=== PATIENT | male | born 1940 | race Caucasian/White ===

== ENCOUNTER → 2024-02-17 14:17 | Outpatient (REF) | payer MEDICARE, SELFPAY | LOC: RAD 14:17 | PROVIDERS: ATTENDING PHYSICIAN Family Medicine | DX: R10.30 Lower abdominal pain, unspecified (principal); I48.92 Unspecified atrial flutter; R06.09 Other forms of dyspnea | CPT/HCPCS: 71046; 74177; Q9967 ==

== ENCOUNTER → 2024-02-18 12:31 | Outpatient (REF) | payer MEDICARE, SELFPAY ==
[2024-02-18 12:50] LABS: % Basophils 0.9 % (0-2); % Eosinophils 1.8 % (0-6); % Immature Granulocytes 0.4 % (0-0.5); % Lymphocytes 12.8 % (20.5-51.1); % Monocytes 6.9 % (1.7-9.3); % Neutrophils 77.2 % (42.2-75.2); Absolute Basophils 0.1 10^3/uL (0-0.2); Absolute Eosinophils 0.1 10^3/uL (0-0.7); Absolute Monocytes 0.5 10^3/uL (0.1-0.6); Absolute Neutrophils 5.9 10^3/uL (1.4-6.5); Hematocrit 41.2 % (39.0-52.0); Hemoglobin 14.2 g/dL (13.0-18.0); Mean Corp Hgb Conc. 34.5 g/dL (33.0-37.0); Mean Corpuscular Hgb 31.1 pg (27.0-31.0); Mean Corpuscular Volume 90.2 fL (80.0-94.0); Mean Platelet Volume 11.4 fL (7.4-10.4); Nucleated Red Blood Cells % 0 % (-); Platelet Count 176 10^3/uL (130-400); Red Blood Cell Count 4.57 10^6/uL (4.70-6.10); Red Cell Dist. Width 11.8 % (11.5-14.5); White Blood Cell Count 7.7 10^3/uL (4.8-10.8)
[2024-02-18 13:23] LABS: Blood Urea Nitrogen 21 mg/dl (9-20); Calcium 9.4 mg/dl (8.4-10.2); Carbon Dioxide 29 mmol/L (22-30); Chloride 98 mmol/L (98-107); Glucose 94 mg/dl (70-99); Potassium 4.5 mmol/L (3.5-5.1); Sodium 134 mmol/L (135-145); eGFR > 60.00
[2024-02-18 14:34] LABS: Urine Albumin Negative (Neg - Trace); Urine Bilirubin Negative (Negative); Urine Character Clear (Clear); Urine Color Yellow; Urine Glucose Negative (Negative); Urine Ketone Negative (Negative); Urine Leukocyte Negative (Negative); Urine Nitrite Negative (Negative); Urine Occult Blood Negative (Negative); Urine Urobilinogen Negative (Neg - 1+)
== END ==
LOC: REG 12:31
PROVIDERS: ATTENDING PHYSICIAN Family Medicine
DX: R53.83 Other fatigue (principal); Z79.899 Other long term (current) drug therapy
CPT/HCPCS: 36415; 80048; 81003; 85025

== ENCOUNTER → 2024-03-06 09:00 | Outpatient (REF) | payer MEDICARE, SELFPAY | LOC: PAVMRI 09:00 | PROVIDERS: ATTENDING PHYSICIAN Psychiatry & Neurology Neurology; FAMILY PHYSICIAN Family Medicine | DX: F09 Unspecified mental disorder due to known physiological condition (principal) | CPT/HCPCS: 70551 ==

== ENCOUNTER → 2024-05-10 07:34 | Outpatient (REF) | payer MEDICARE, SELFPAY | LOC: EMG 07:34 | PROVIDERS: ATTENDING PHYSICIAN Psychiatry & Neurology Neurology; FAMILY PHYSICIAN Family Medicine | DX: R20.0 Anesthesia of skin (principal) | CPT/HCPCS: 95886; 95912 ==

== ENCOUNTER → 2024-06-02 10:59 | Outpatient (REF) | payer MEDICARE, SELFPAY | LOC: HWRAD 10:59 | PROVIDERS: ATTENDING PHYSICIAN Internal Medicine Rheumatology; FAMILY PHYSICIAN Family Medicine | DX: M81.0 Age-related osteoporosis without current pathological fracture (principal) | CPT/HCPCS: 77080 ==

== ENCOUNTER → 2024-06-22 13:56 | Outpatient (REF) | payer MEDICARE, SELFPAY | LOC: HWRCS 13:56 | PROVIDERS: ATTENDING PHYSICIAN Internal Medicine Cardiovascular Disease; FAMILY PHYSICIAN Family Medicine | DX: R06.09 Other forms of dyspnea (principal) | CPT/HCPCS: 93306 ==

== ENCOUNTER 2024-09-27 14:18 | Emergency (ER) | payer MEDICARE, SELFPAY ==
[2024-09-27 15:57] VITALS: BP 128/63
[2024-09-27 16:07] LABS: % Eosinophils 3.8 % (0-6); % Immature Granulocytes 0.3 % (0-0.5); % Lymphocytes 19.3 % (20.5-51.1); % Monocytes 8.4 % (1.7-9.3); % Neutrophils 67.2 % (42.2-75.2); Absolute Basophils 0.1 10^3/uL (0-0.2); Absolute Eosinophils 0.2 10^3/uL (0-0.7); Absolute Lymphocytes 1.2 10^3/uL (1.2-3.4); Absolute Monocytes 0.5 10^3/uL (0.1-0.6); Absolute Neutrophils 4.2 10^3/uL (1.4-6.5); Hematocrit 39.6 % (39.0-52.0); Hemoglobin 13.5 g/dL (13.0-18.0); Mean Corp Hgb Conc. 34.1 g/dL (33.0-37.0); Mean Corpuscular Hgb 30.4 pg (27.0-31.0); Mean Corpuscular Volume 89.2 fL (80.0-94.0); Mean Platelet Volume 11.6 fL (7.4-10.4); Nucleated Red Blood Cells % 0 % (-); Platelet Count 156 10^3/uL (130-400); Red Blood Cell Count 4.44 10^6/uL (4.70-6.10); Red Cell Dist. Width 12.1 % (11.5-14.5); White Blood Cell Count 6.3 10^3/uL (4.8-10.8)
[2024-09-27 16:23] LABS: ALT (SGPT) 20 U/L (0-50); AST (SGOT) 23 U/L (17-59); Albumin 4.6 g/dl (3.5-5.0); Alkaline Phosphatase 95 U/L (38-126); Blood Urea Nitrogen 32 mg/dl (9-20); Calcium 9.6 mg/dl (8.4-10.2); Carbon Dioxide 28 mmol/L (22-30); Chloride 99 mmol/L (98-107); Glucose 99 mg/dl (70-99); Lipase 109 U/L (23-300); Potassium 5.1 mmol/L (3.5-5.1); Sodium 137 mmol/L (135-145); Total Bilirubin 0.4 mg/dl (0.2-1.3); Total Protein 6.6 g/dl (6.3-8.2); eGFR > 60.00
[2024-09-27 16:30] LABS: Urine Albumin Negative (Neg - Trace); Urine Bilirubin Negative (Negative); Urine Character Clear (Clear); Urine Color Yellow; Urine Glucose Negative (Negative); Urine Ketone Negative (Negative); Urine Leukocyte Negative (Negative); Urine Nitrite Negative (Negative); Urine Occult Blood Negative (Negative); Urine Specific Gravity 1.015 (<1.030); Urine Urobilinogen Negative (Neg - 1+)
[2024-09-27] MEDS: NSS 1000 IV (18:06)
[2024-09-27 19:28] VITALS: BP 120/60
--- NOTE | 2024-09-27 23:52 | ED.GENMED ---
History of Present Illness
General
Chief Complaint: Flank Pain
Source: patient
Exam Limitations: none
Time Seen by Provider: 09/27/24 15:18
Nursing documentation reviewed up to this point in time: agreed with
History of Present Illness
History of Present Illness:
Patient to ED with complaint of right flank upper abd and right chest pain. States pain has been present for the past fwe weeks but contiinues to worsen. Denies fever/chills. +nausea, no vomiting or diarrhea. Brought self to ED for eval.
Past History
Past History
ED Past Medical History: Arrthythmia, CVA, GERD, HTN and Other (PSVT, bipolar, depression, pulmonary hypertension, sleep apnea, anxiety)
ED Past Surgical History: Appendectomy, Cholecystectomy and Orthopedic
Social History
Tobacco: Non-smoker
Alcohol: None
Drug: None
Personal:
Living: with family
Employment: Employed
Family History
Family History: Other (Noncontributory)
Review of Systems
Review of Systems
Allergies reviewed?: Yes
All Other Systems: ROS reviewed and negative except as documented in HPI and ROS
Constitutional: Reports no symptoms
EENT: Reports no symptoms
Respiratory: Reports no symptoms
Cardiac: Reports no symptoms
ABD/GI: Reports abdominal pain
: Reports flank pain
Musculoskeletal: Reports no symptoms
Skin: Reports no symptoms
Neurological: Reports no symptoms
Psychiatric: Reports no symptoms
Phy Exam
General Physical Exam
General Presentation: well appearing and no apparent distress
General age: appears stated age
General Skin: warm and dry
General Habitus: normal
General Mental: alert
Cardiovascular Exam
Cardiovascular Exam: regular rate/rhythm
Pulmonary Exam
Pulmonary Exam: lungs clear and no respiratory distress
Gastrointestinal Exam
Gastrointestinal Exam: non tender, soft and no organomegaly
Musculoskeletal Exam
Musculoskeletal Exam: full ROM and neuro vasc intact
Skin Exam
Skin Exam: normal color, warm/dry and no rash
Psychiatric Exam
Psychiatric Exam: normal mood/affect
Course
Orders/Labs/Results
Orders:
Orders
09/27/24 15:36
Chest/Abd/Pelvis w Contrast CT [CT Chest/abd/pel W Iv Cont] Urgent
Comment:
Reason For Exam: upper abd, right chest pain, SOB
09/27/24 15:51
Complete Blood Count/With Diff Urgent
Comprehensive Metabolic Panel Urgent
Lipase Urgent
Urinalysis Reflex To Culture Urgent
Date Specimen was Collected: 09/27/24
Time Specimen was Collected: 15:38
09/27/24 17:59
0.9% Sodium Chloride 1000 ml [Nss] 1,000 ml IV BOLUS
Abnormal Lab Results
09/27/24
15:51
RBC 4.44 L 10^6/uL
(4.70-6.10)
MPV 11.6 H fL
(7.4-10.4)
Lymphocytes % 19.3 L %
(20.5-51.1)
BUN 32 H mg/dl
(9-20)
09/27/24 15:51
09/27/24 15:51
Vital Signs
Initial and Last Documented VS:
Initial Vital Signs
Temp Pulse Resp Pulse Ox
97.4 F 77 20 98
09/27/24 14:22 09/27/24 14:22 09/27/24 14:22 09/27/24 14:22
Last Documented Vital Signs
Temp Pulse Resp BP Pulse Ox
97.4 F 65 18 120/60 98
09/27/24 14:22 09/27/24 19:28 09/27/24 19:28 09/27/24 19:28 09/27/24 19:28
*Radiology
Radiology exam reviewed: radiology read reviewed
*Pulse Oximetry
Patient hypoxic: no
*Critical Care Note
Total Time (30-74mins, 75-104mins- exclusive of procedures): Not Applicable
ED Attending Note
-
Portions of this chart may have been created with voice recognition software.� Occasional wrong word or��sound alike� substitutions may have occurred due to the inherent limitations of voice recognition software.
Discharge Plan
Departure
Patient Disposition: Home (Routine Discharge)
Date of Disposition: 09/27/24
Time of Disposition: 18:32
Patient with high blood pressure during this ER visit?: No
Condition: Good
Covid-19: Not Applicable
Discharge Problem:
Flank pain
Instructions: Flank Pain (DC)
Prescriptions:
No Action
diltiazem HCl 240 mg Capsule,Ext.Rel 24h Degradable
240 mg PO DAILY
clonazepam [Klonopin] 0.5 mg Tablet
0.5 mg PO .5X'SPERDAY
omeprazole [Prilosec] 40 mg Capsule,Delayed Release(Dr/Ec)
40 mg PO DAILY
tamsulosin 0.4 mg Capsule
0.8 mg PO DAILY
mirtazapine 30 mg Tablet
30 mg PO DAILY
losartan 100 mg Tablet
100 mg PO DAILY
lamotrigine [Lamictal] 100 mg Tablet
100 mg PO BID
Eliquis 5 mg Tablet
5 mg PO BID
Trintellix 10 mg Tablet
10 mg PO DAILY
Referrals:
Mukul Concepcion Jr., DO [Family Provider] - Follow up in 2-3 days
Interventions
Interventions:
*Risk Screen - Suicide Last Done: 09/27/24 14:22
*General Assessment Last Done: 09/27/24 14:22
*Neglect/Abuse Screening Last Done: 09/27/24 14:22
ED- Fall Risk Assessment Last Done: 09/27/24 15:22
*Nursing Disposition Last Done: 09/27/24 19:28
PT-Kgilmj-Upfxtmrmeb Assessment Last Done: 09/27/24 15:22
ED-Male Genitourinary Assessment Last Done: 09/27/24 15:22
Discharge Date and Time
Discharge Date/Time: 09/27/24 19:29
Print Language: SUDANESE
== END 2024-09-27 19:29 | disposition home or self-care (01) ==
LOC: EMR 14:18
PROVIDERS: Nurse Practitioner; EMERGENCY PHYSICIAN Emergency Medicine; FAMILY PHYSICIAN Family Medicine
DX: R10.11 Right upper quadrant pain (principal); R07.89 Other chest pain; R11.0 Nausea; R53.1 Weakness; I10 Essential (primary) hypertension; F41.9 Anxiety disorder, unspecified; K21.9 Gastro-esophageal reflux disease without esophagitis; G47.30 Sleep apnea, unspecified; I47.10 Supraventricular tachycardia, unspecified; F31.9 Bipolar disorder, unspecified; F32.A Depression, unspecified; I27.20 Pulmonary hypertension, unspecified; G54.0 Brachial plexus disorders; G62.9 Polyneuropathy, unspecified; I48.92 Unspecified atrial flutter; N40.0 Benign prostatic hyperplasia without lower urinary tract symptoms; Z79.01 Long term (current) use of anticoagulants; Z85.828 Personal history of other malignant neoplasm of skin; Z86.73 Personal history of transient ischemic attack (TIA), and cerebral infarction without residual deficits; Z90.49 Acquired absence of other specified parts of digestive tract; Z88.5 Allergy status to narcotic agent
CPT/HCPCS: 99284; 96360; 71260; 74177; 80053; 81003; 83690; 85025; Q9967

== ENCOUNTER → 2024-10-20 11:03 | Outpatient (REF) | payer MEDICARE, SELFPAY | LOC: HWRAD 11:03 | PROVIDERS: ATTENDING PHYSICIAN Nurse Practitioner Adult Health; FAMILY PHYSICIAN Family Medicine | DX: E04.1 Nontoxic single thyroid nodule (principal) | CPT/HCPCS: 76536 ==

== ENCOUNTER → 2024-10-27 14:40 | Outpatient (REF) | payer MEDICARE, SELFPAY | LOC: RCS 14:40 | PROVIDERS: ATTENDING PHYSICIAN Internal Medicine Cardiovascular Disease; FAMILY PHYSICIAN Family Medicine | DX: R06.09 Other forms of dyspnea (principal); I45.10 Unspecified right bundle-branch block; I51.7 Cardiomegaly | CPT/HCPCS: 93308 ==

== ENCOUNTER 2024-11-06 10:26 | Emergency (ER) | payer MEDICARE, SELFPAY ==
[2024-11-06 10:29] VITALS: BP 92/54
[2024-11-06 10:53] LABS: % Basophils 0.9 % (0-2); % Eosinophils 3.9 % (0-6); % Immature Granulocytes 0.3 % (0-0.5); % Lymphocytes 15.8 % (20.5-51.1); % Monocytes 7.7 % (1.7-9.3); % Neutrophils 71.4 % (42.2-75.2); Absolute Basophils 0.1 10^3/uL (0-0.2); Absolute Eosinophils 0.3 10^3/uL (0-0.7); Absolute Lymphocytes 1.1 10^3/uL (1.2-3.4); Absolute Monocytes 0.5 10^3/uL (0.1-0.6); Absolute Neutrophils 4.9 10^3/uL (1.4-6.5); Hematocrit 42.2 % (39.0-52.0); Hemoglobin 13.6 g/dL (13.0-18.0); Mean Corp Hgb Conc. 32.2 g/dL (33.0-37.0); Mean Corpuscular Hgb 30.2 pg (27.0-31.0); Mean Corpuscular Volume 93.8 fL (80.0-94.0); Mean Platelet Volume 11.7 fL (7.4-10.4); Nucleated Red Blood Cells % 0 % (-); Platelet Count 173 10^3/uL (130-400); Red Cell Dist. Width 11.9 % (11.5-14.5); White Blood Cell Count 6.9 10^3/uL (4.8-10.8)
[2024-11-06 11:07] LABS: ALT (SGPT) 21 U/L (0-50); AST (SGOT) 21 U/L (17-59); Albumin 4.3 g/dl (3.5-5.0); Alkaline Phosphatase 85 U/L (38-126); Blood Urea Nitrogen 35 mg/dl (9-20); Calcium 9.5 mg/dl (8.4-10.2); Carbon Dioxide 27 mmol/L (22-30); Chloride 106 mmol/L (98-107); Glucose 100 mg/dl (70-99); Magnesium 2.2 mg/dl (1.6-2.3); Potassium 4.7 mmol/L (3.5-5.1); Sodium 141 mmol/L (135-145); Total Bilirubin 0.5 mg/dl (0.2-1.3); Total Protein 6.4 g/dl (6.3-8.2); eGFR > 60.00
--- NOTE | 2024-11-06 11:40 | ED.GENMED ---
History of Present Illness
General
Chief Complaint: DVT/Possible Blood Clot
Source: patient
Exam Limitations: none
Time Seen by Provider: 11/06/24 11:14
Nursing documentation reviewed up to this point in time: agreed with
History of Present Illness
History of Present Illness:
Patient is an 84-year-old male who does like with past medical history of atrial flutter , Cardioversion, bipolar disorder depression,, pulmonary hypertension right bundle branch block fatigue anxiety presents to the ER for evaluation. Patient
reports he has been short of breath for weeks and fatigue. Today he was walking slightly uphill, started breath and felt his heart rate go up to 130. He denies any associated chest pain. He however wants to be sure this was not a cardiac
equivalent. In addition patient has noted that his right lower extremity has some 'pitting edema.' He is on Eliquis.
Past History
Past History
ED Past Medical History: Arrthythmia, CVA, GERD, HTN and Other (PSVT, bipolar, depression, pulmonary hypertension, sleep apnea, anxiety)
ED Past Surgical History: Appendectomy, Cholecystectomy and Orthopedic
Social History
Tobacco: Non-smoker
Alcohol: None
Drug: None
Personal:
Living: with family
Employment: Employed
Family History
Family History: Other (Noncontributory)
Review of Systems
Review of Systems
Allergies reviewed?: Yes
All Other Systems: ROS reviewed and negative except as documented in HPI and ROS
Constitutional: Reports fatigue; Denies fever
Respiratory: Reports trouble breathing
Cardiac: Reports other (felt his HR go up today walking ); Denies chest pain
ABD/GI: Reports no symptoms
: Reports no symptoms
Musculoskeletal: Reports other ( mild swelling to right lower extremity)
Skin: Reports no symptoms
Neurological: Reports no symptoms
Hematologic/Lymphatic: Reports no symptoms
Psychiatric: Reports no symptoms
Phy Exam
General Physical Exam
General Presentation: no apparent distress
General age: appears stated age
General Skin: warm and dry
General Habitus: normal
General Mental: alert
General Hydration: appears well hydrated
Cardiovascular Exam
Cardiovascular Exam: regular rate/rhythm, no murmur and normal peripheral pulses
Pulmonary Exam
Pulmonary Exam: lungs clear and no respiratory distress
Neurological Exam
Neurological Exam: alert and oriented x3
Musculoskeletal Exam
Musculoskeletal Exam: other (Mild swelling to right lower extremity strong bilateral pulses 2 her mom sounds like he is like for you to evaluate your short leg yes he is very)
Skin Exam
Skin Exam: normal color and warm/dry
Psychiatric Exam
Psychiatric Exam: normal mood/affect
Course
Orders/Labs/Results
Orders:
Orders
11/06/24 10:34
Electrocardiogram (*1) Urgent
Reason for Study: Shortness of Breath
EKG- Treatment ONCE
US Periph Venous LOWER Ext RT Urgent
Comment:
Reason For Exam: swelling
11/06/24 10:46
CMP [Comprehensive Metabolic Panel] Urgent
Complete Blood Count/With Diff Urgent
Magnesium Urgent
11/06/24 12:18
Chest [CR Chest - 2 Views ] Urgent
Comment:
Reason For Exam: sob
11/06/24 12:33
Pro-BNP [NT-proBNP] Urgent
Troponin I Urgent
Abnormal Lab Results
11/06/24
10:46
RBC 4.50 L 10^6/uL
(4.70-6.10)
MCHC 32.2 L g/dL
(33.0-37.0)
MPV 11.7 H fL
(7.4-10.4)
Absolute Lymphs (auto) 1.1 L 10^3/uL
(1.2-3.4)
Lymphocytes % 15.8 L %
(20.5-51.1)
BUN 35 H mg/dl
(9-20)
Glucose 100 H mg/dl
(70-99)
11/06/24 10:46
11/06/24 10:46
Vital Signs
Initial and Last Documented VS:
Initial Vital Signs
Temp Pulse Resp BP Pulse Ox
97.7 F 77 18 92/54 97
11/06/24 10:29 11/06/24 10:29 11/06/24 10:29 11/06/24 10:29 11/06/24 10:29
Last Documented Vital Signs
Temp Pulse Resp BP Pulse Ox
97.7 F 68 16 121/48 97
11/06/24 10:29 11/06/24 14:30 11/06/24 14:30 11/06/24 14:30 11/06/24 14:30
Nurse Healthcare Manager consulted with Physician
Nurse Healthcare Manager consulted with physician?: Yes
Name of Physician Consulted: DR Wise
MDM/Problems Addressed
MDM/Problems Addressed:
Patient is an 84-year-old male with past medical history of mild pulmonary hypertension, a flutter, hypertension, right bundle branch block, on Eliquis presents for shortness of breath. He is a pt of DR Chou and does have chronic SOB.
[place] patient admits to be very anxious and wanted to make sure this was not a cardiac equivalent. He denied any associated chest pain. He presents awake alert no acute distress lungs are clear not hypoxic very minimal right lower extremity
swelling. He also wanted to be sure he did not have a DVT. He denies any fever or chills. He presents awake alert no acute distress afebrile nontachycardic heart rate in the 60s 70s normal white count stable hemoglobin. Patient has an elevated
BUN which is not new., Creatinine normal normal troponin cardiac BNP is 244. Chest x-ray done and negative negative for ultrasound.
Patient ambulated throughout the room [id number] to the bathroom got himself dressed on his own without any difficulty. He has not tachypneic with exertion.
Case reviewed ED physician will DC with outpatient cardiology follow-up
*Pulse Oximetry
Patient hypoxic: no
*EKG
Interpretation: abnormal
Comparison EKG: no changes
Heart Rate: 71
Rate: normal
Rhythm: sinus
QRS Pattern: right bundle branch block
*Critical Care Note
Total Time (30-74mins, 75-104mins- exclusive of procedures): Not Applicable
Data Reviewed
Review of Other/Old Records Reveals: Other (Echo from May 2024 reviewed mild pulmonary hypertension mild right ventricular enlargement no regional wall abnormality)
ED Attending Note
-
Portions of this chart may have been created with voice recognition software.� Occasional wrong word or��sound alike� substitutions may have occurred due to the inherent limitations of voice recognition software.
Discharge Plan
Departure
Patient Disposition: Home (Routine Discharge)
Date of Disposition: 11/06/24
Time of Disposition: 15:06
Patient with high blood pressure during this ER visit?: No
Condition: Fair
Covid-19: Not Applicable
Discharge Problem:
WILSON (dyspnea on exertion)
Instructions: Shortness of Breath, Adult ED
Prescriptions:
No Action
diltiazem HCl 240 mg Capsule,Ext.Rel 24h Degradable
240 mg PO DAILY
clonazepam [Klonopin] 0.5 mg Tablet
0.5 mg PO .5X'SPERDAY
omeprazole [Prilosec] 40 mg Capsule,Delayed Release(Dr/Ec)
40 mg PO DAILY
tamsulosin 0.4 mg Capsule
0.8 mg PO DAILY
mirtazapine 30 mg Tablet
30 mg PO DAILY
losartan 100 mg Tablet
100 mg PO DAILY
lamotrigine [Lamictal] 100 mg Tablet
100 mg PO BID
Eliquis 5 mg Tablet
5 mg PO BID
Trintellix 10 mg Tablet
10 mg PO DAILY
Referrals:
Mukul Concepcion Jr., DO [Family Provider] -
Artemio Chou MD [Active] -
Activity Restrictions/Additional Instructions:
Follow-up with your recovery collector. Please call tomorrow to make an appointment as soon as possible for reevaluation.
Return if any worsening of symptoms
Interventions
Interventions:
*Risk Screen - Suicide Last Done: 11/06/24 10:29
*General Assessment Last Done: 11/06/24 10:29
*Neglect/Abuse Screening Last Done: 11/06/24 10:29
*ED COVID-19 Vaccine History Last Done: 11/06/24 10:29
Discharge Date and Time
Print Language: PORTUGUESE
[2024-11-06 13:02] LABS: NT-proBNP 244 pg/ml; Troponin I 0.012 ng/ml
[2024-11-06 13:39] VITALS: BP 123/54
[2024-11-06 14:30] VITALS: BP 121/48
== END 2024-11-06 15:17 | disposition home or self-care (01) ==
LOC: EMR 10:26
PROVIDERS: Emergency Medicine; Nurse Practitioner; EMERGENCY PHYSICIAN Emergency Medicine; FAMILY PHYSICIAN Family Medicine
DX: R06.09 Other forms of dyspnea (principal); I10 Essential (primary) hypertension; I27.20 Pulmonary hypertension, unspecified; R60.0 Localized edema; G47.30 Sleep apnea, unspecified; I48.92 Unspecified atrial flutter; Z79.01 Long term (current) use of anticoagulants; K21.9 Gastro-esophageal reflux disease without esophagitis; Z86.73 Personal history of transient ischemic attack (TIA), and cerebral infarction without residual deficits; Z90.49 Acquired absence of other specified parts of digestive tract
CPT/HCPCS: 99285; 71046; 80053; 83735; 83880; 84484; 85025; 93005; 93971

== ENCOUNTER → 2024-11-15 09:08 | Outpatient (REF) | payer MEDICARE, SELFPAY ==
[2024-11-15 09:40] VITALS: BP 111/69
== END ==
LOC: RADI 09:08
PROVIDERS: ATTENDING PHYSICIAN Family Medicine
DX: E04.1 Nontoxic single thyroid nodule (principal); Z80.8 Family history of malignant neoplasm of other organs or systems
CPT/HCPCS: 88173; 10005

== ENCOUNTER → 2024-12-04 09:34 | Outpatient (REF) | payer MEDICARE, SELFPAY | LOC: HWRAD 09:34 | PROVIDERS: ATTENDING PHYSICIAN Family Medicine | DX: R10.11 Right upper quadrant pain (principal) | CPT/HCPCS: 76700 ==

== ENCOUNTER 2025-01-01 05:31 | Emergency (ER) | payer MEDICARE, SELFPAY ==
[2025-01-01 05:35] VITALS: BP 122/60
[2025-01-01 06:04] VITALS: BP 116/54
[2025-01-01 06:05] VITALS: BMI 30.7
[2025-01-01 07:00] VITALS: BP 114/58
[2025-01-01 08:00] VITALS: BP 119/52
--- NOTE | 2025-01-01 08:32 | ED.GENMED ---
History of Present Illness
<TAY Ramirez - Last Filed: 01/05/25 03:06>
General
Chief Complaint: Urinary Symptoms
Source: patient
Exam Limitations: none
Time Seen by Provider: 01/01/25 08:12
Nursing documentation reviewed up to this point in time: agreed with
History of Present Illness
History of Present Illness:
Patient is an 84-year-old male with past medical history of bipolar depression, anxiety disorder SVT, ablation hypertension GERD chronic neuropathy chronic paresthesia presents to the ER for evaluation. Patient admits he does have an anxiety issue
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 He reports he got up this morning around 2 AM and felt the urge to urinate but has not been able to do so. He was concerned about his
renal function as it has been elevated in the past. He did have a lot of pressure in his lower abdomen and reports he tried to percuss his abdomen at home and was concerned about retention which is what prompted him to come to the ER.
In addition he reports he has been constipated off and on this week despite MiraLAX. He denies any nausea vomiting. He did move his bowels today.
Patient does note that he has chronic neuropathy and saddle paresthesia this is not new. He denies any new lower extremity weakness. He has been able to urinate since.
He denies any recent trauma fever chills.
Past History
<TAY Ramirez - Last Filed: 01/05/25 03:06>
Past History
ED Past Medical History: Arrthythmia, CVA, GERD, HTN and Other (PSVT, bipolar, depression, pulmonary hypertension, sleep apnea, anxiety)
ED Past Surgical History: Appendectomy, Cholecystectomy and Orthopedic
Social History
Tobacco: Non-smoker
Alcohol: None
Drug: None
Personal:
Living: with family
Employment: Employed
Family History
Family History: Other (Noncontributory)
Review of Systems
<TAY Ramirez - Last Filed: 01/05/25 03:06>
Review of Systems
Allergies reviewed?: Yes
All Other Systems: ROS reviewed and negative except as documented in HPI and ROS
Constitutional: Reports no symptoms
Respiratory: Reports no symptoms
Cardiac: Reports no symptoms
ABD/GI: Reports other (lower abd pressure /constipation)
: Reports other (difficulty urinating ); Denies incontinence
Musculoskeletal: Reports no symptoms
Neurological: Reports no symptoms
Psychiatric: Reports no symptoms
Phy Exam
<TAY Ramirez - Last Filed: 01/05/25 03:06>
General Physical Exam
General Presentation: no apparent distress
General age: appears stated age
General Skin: warm and dry
General Habitus: normal
General Mental: alert
General Hydration: appears well hydrated
Cardiovascular Exam
Cardiovascular Exam: regular rate/rhythm, no murmur and normal peripheral pulses
Pulmonary Exam
Pulmonary Exam: lungs clear and no respiratory distress
Gastrointestinal Exam
Gastrointestinal Exam: non tender and soft
Neurological Exam
Neurological Exam: alert and oriented x3
Musculoskeletal Exam
Musculoskeletal Exam: full ROM
Skin Exam
Skin Exam: normal color and warm/dry
Psychiatric Exam
Psychiatric Exam: anxious
Course
<TAY Ramirez - Last Filed: 01/05/25 03:06>
Orders/Labs/Results
Orders:
Orders
01/01/25 08:47
Bladder Scan- Treatment ONCE
01/01/25 08:56
Complete Blood Count/With Diff Urgent
01/01/25 09:31
Comprehensive Metabolic Panel Urgent
UA Reflex to Culture [Urinalysis Reflex To Culture] Urgent
Date Specimen was Collected: 01/01/25
Time Specimen was Collected: 09:27
Abnormal Lab Results
01/01/25 01/01/25
08:56 09:31
RBC 4.28 L 10^6/uL
(4.70-6.10)
Hct 38.7 L %
(39.0-52.0)
MPV 11.4 H fL
(7.4-10.4)
Absolute Lymphs (auto) 1.1 L 10^3/uL
(1.2-3.4)
Lymphocytes % 16.6 L %
(20.5-51.1)
BUN 30 H mg/dl
(9-20)
01/01/25 08:56
01/01/25 09:31
Vital Signs
Initial and Last Documented VS:
Initial Vital Signs
Temp Pulse Resp BP Pulse Ox
97.8 F 80 20 122/60 98
01/01/25 05:35 01/01/25 05:35 01/01/25 05:35 01/01/25 05:35 01/01/25 05:35
Last Documented Vital Signs
Temp Pulse Resp BP Pulse Ox
97.8 F 71 16 119/66 97
01/01/25 05:35 01/01/25 12:26 01/01/25 12:26 01/01/25 12:26 01/01/25 12:26
Wardrobe Consultant consulted with Physician
Wardrobe Consultant consulted with physician?: Yes
Name of Physician Consulted: David
<Socorro Hernandez MD - Last Filed: 01/01/25 12:19>
Orders/Labs/Results
Orders:
Orders
01/01/25 08:47
Bladder Scan- Treatment ONCE
01/01/25 08:56
Complete Blood Count/With Diff Urgent
01/01/25 09:31
Comprehensive Metabolic Panel Urgent
UA Reflex to Culture [Urinalysis Reflex To Culture] Urgent
Date Specimen was Collected: 01/01/25
Time Specimen was Collected: 09:27
Abnormal Lab Results
01/01/25 01/01/25
08:56 09:31
RBC 4.28 L 10^6/uL
(4.70-6.10)
Hct 38.7 L %
(39.0-52.0)
MPV 11.4 H fL
(7.4-10.4)
Absolute Lymphs (auto) 1.1 L 10^3/uL
(1.2-3.4)
Lymphocytes % 16.6 L %
(20.5-51.1)
BUN 30 H mg/dl
(9-20)
01/01/25 08:56
01/01/25 09:31
Vital Signs
Initial and Last Documented VS:
Initial Vital Signs
Temp Pulse Resp BP Pulse Ox
97.8 F 80 20 122/60 98
01/01/25 05:35 01/01/25 05:35 01/01/25 05:35 01/01/25 05:35 01/01/25 05:35
Last Documented Vital Signs
Temp Pulse Resp BP Pulse Ox
97.8 F 71 16 119/66 97
01/01/25 05:35 01/01/25 12:26 01/01/25 12:26 01/01/25 12:26 01/01/25 12:26
<TAY Ramirez - Last Filed: 01/05/25 03:06>
MDM/Problems Addressed
MDM/Problems Addressed:
As documented patient is an 84-year-old male with history of significant anxiety presents for evaluation. He was concerned about having difficulty emptying his bladder and concern for urinary retention. He has chronic neuropathy and chronic
numbness in the saddle region. He presented to the ER very anxious concerned about multiple medical issues from previous as well as present. He noted that he has been intermittently constipate however denies any vomiting. He is nontoxic and has
normal strength throughout his upper and lower extremities. He was able to fully give a urine and urine is without any evidence of infection. no retention on bladder scan .
pt is afebrile no acute distress with a normal white count. He is very anxious however stable appearing his hemoglobin is stable, his creatinine is normal, his BUN is elevated however he has had multiple previous elevated bilirubins in the past.
There is no acute evidence of infection and urinalysis.
Patient was concerned about cauda equina given the fact that he has chronic neuropathy and was having's constipations and urination problems. He was evaluated ED physician MRI was offered however patient would like to go home and not wait for the
MRI. This is very reasonable as patient is very anxious and is ruminating about multiple medical possibilities that he is concerned about.
I did review with patient to closely follow-up with his family doctor as well as urology he is stable for discharge home
<TAY Ramirez - Last Filed: 01/05/25 03:06>
*Critical Care Note
Total Time (30-74mins, 75-104mins- exclusive of procedures): Not Applicable
ED Attending Note
<TAY Ramirez - Last Filed: 01/05/25 03:06>
-
Portions of this chart may have been created with voice recognition software.� Occasional wrong word or��sound alike� substitutions may have occurred due to the inherent limitations of voice recognition software.
<Socorro Hernandez MD - Last Filed: 01/01/25 12:19>
ED Attending Note
Patient seen and examined by attending physician: Yes
I performed the substantive portion of visit, reviewed & personally made and approve the management plan that is documented in note by myself or OLIVER.: Yes
ED Attending Note:
I have seen and evaluated the patient with a wllc-vw-kxdo encounter. I have spoken to the SOLE DYER and involved in the medical history, the physical exam, medical decision making.
Evaluation and management service: agree unless noted differently below.
Results interpretation: agree unless noted differently below.
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 Per chart review it appears that patient was seen here in April 2023 where he had an MRI done that does show significant bulging disc but no
signs of cauda equina. He did follow-up with spinal surgery who did not recommend any interventions at this time. He states that since then he has been having ongoing tingling to both his legs as well as chronic saddle anesthesia that has not
changed in quite some time. He states that his rectal tone feels intact however he states that he does not have to push as hard with bowel movement. He does state that he is on MiraLAX which is increased. He is also concerned as he was retaining
urine last night however since he is arrived to the emergency department he has urinated with a normal postvoid residual. On exam patient is resting comfortably. He is awake and alert. He does have 5 out of 5 strength in bilateral lower
extremities. Sensation is equal in bilateral lower extremities. Patient is extremely anxious and states that he is concerned that he might have malignancy or partial cauda equina. It is reassuring that he is not retaining urine. After thorough
discussion given patient's concern for difficulty with bowel movement changes in his urinary pattern and paresthesias we will obtain an MRI. Blood work otherwise is reassuring. His urine is negative.
We were waiting to hear back from radiology about the MRI today. Patient then came asking for an update stating that since that this is chronic and ongoing for quite some time that he would rather not wait and get an outpatient MRI completed. I do
think this is appropriate as my concern for cauda equina is low. Will discharge at this time. Strict return precautions given.
Discharge Plan
Departure
Patient Disposition: Home (Routine Discharge)
Date of Disposition: 01/01/25
Time of Disposition: 12:16
Patient with high blood pressure during this ER visit?: No
Condition: Fair
Covid-19: Not Applicable
Discharge Problem:
Urinary problem
Prescriptions:
No Action
diltiazem HCl 240 mg Capsule,Ext.Rel 24h Degradable
240 mg PO DAILY
clonazepam [Klonopin] 0.5 mg Tablet
1.5 mg PO 4XD
omeprazole [Prilosec] 40 mg Capsule,Delayed Release(Dr/Ec)
40 mg PO DAILY
tamsulosin 0.4 mg Capsule
0.8 mg PO DAILY
mirtazapine 30 mg Tablet
30 mg PO DAILY
losartan 100 mg Tablet
100 mg PO DAILY
lamotrigine [Lamictal] 100 mg Tablet
100 mg PO BID
Eliquis 5 mg Tablet
5 mg PO BID
Rx Instructions:
5mg am. 2.5mg pm
Colace 50 mg Capsule
100 mg PO DAILY
Referrals:
Mukul Concepcion Jr., DO [Family Provider] -
Leno Chapman MD [Active] -
Activity Restrictions/Additional Instructions:
Follow-up with your urologist as discussed in the next several days for reevaluation of your symptoms.
Please call to make an appointment. Return if any worsening of symptoms. In addition please continue to take MiraLAX daily.
Interventions
Interventions:
*Risk Screen - Suicide Last Done: 01/01/25 05:35
*General Assessment Last Done: 01/01/25 06:06
*Neglect/Abuse Screening Last Done: 01/01/25 05:35
ED- Fall Risk Assessment Last Done: 01/01/25 06:06
*ED COVID-19 Vaccine History Last Done: 01/01/25 06:06
*Nursing Disposition Last Done: 01/01/25 12:27
IQ-Voxlwr-Godamzqxgr Assessment Last Done: 01/01/25 06:06
ED-Male Genitourinary Assessment Last Done: 01/01/25 06:06
Discharge Date and Time
Discharge Date/Time: 01/01/25 12:27
Print Language: WOLOF
[2025-01-01 09:08] LABS: % Basophils 0.9 % (0-2); % Eosinophils 2.9 % (0-6); % Immature Granulocytes 0.3 % (0-0.5); % Lymphocytes 16.6 % (20.5-51.1); % Monocytes 7.9 % (1.7-9.3); % Neutrophils 71.4 % (42.2-75.2); Absolute Basophils 0.1 10^3/uL (0-0.2); Absolute Eosinophils 0.2 10^3/uL (0-0.7); Absolute Lymphocytes 1.1 10^3/uL (1.2-3.4); Absolute Monocytes 0.5 10^3/uL (0.1-0.6); Absolute Neutrophils 4.6 10^3/uL (1.4-6.5); Hematocrit 38.7 % (39.0-52.0); Hemoglobin 13.2 g/dL (13.0-18.0); Mean Corp Hgb Conc. 34.1 g/dL (33.0-37.0); Mean Corpuscular Hgb 30.8 pg (27.0-31.0); Mean Corpuscular Volume 90.4 fL (80.0-94.0); Mean Platelet Volume 11.4 fL (7.4-10.4); Nucleated Red Blood Cells % 0 % (-); Platelet Count 142 10^3/uL (130-400); Red Blood Cell Count 4.28 10^6/uL (4.70-6.10); Red Cell Dist. Width 11.9 % (11.5-14.5); White Blood Cell Count 6.5 10^3/uL (4.8-10.8)
[2025-01-01 09:57] LABS: Urine Albumin Negative (Neg - Trace); Urine Bilirubin Negative (Negative); Urine Character Clear (Clear); Urine Color Yellow; Urine Glucose Negative (Negative); Urine Ketone Negative (Negative); Urine Leukocyte Negative (Negative); Urine Nitrite Negative (Negative); Urine Occult Blood Negative (Negative); Urine Specific Gravity 1.015 (<1.030); Urine Urobilinogen Negative (Neg - 1+)
[2025-01-01 10:06] VITALS: BP 121/68
[2025-01-01 10:18] LABS: ALT (SGPT) 24 U/L (0-50); AST (SGOT) 26 U/L (17-59); Albumin 4.9 g/dl (3.5-5.0); Alkaline Phosphatase 110 U/L (38-126); Blood Urea Nitrogen 30 mg/dl (9-20); Calcium 9.4 mg/dl (8.4-10.2); Carbon Dioxide 25 mmol/L (22-30); Chloride 99 mmol/L (98-107); Estimated Creatinine Clearance 54 ml/min; Glucose 94 mg/dl (70-99); Potassium 4.7 mmol/L (3.5-5.1); Sodium 135 mmol/L (135-145); Total Bilirubin 0.8 mg/dl (0.2-1.3); Total Protein 7.2 g/dl (6.3-8.2); eGFR > 60.00
[2025-01-01 12:26] VITALS: BP 119/66
== END 2025-01-01 12:27 | disposition home or self-care (01) ==
LOC: EMR 05:31
PROVIDERS: Emergency Medicine; Nurse Practitioner; EMERGENCY PHYSICIAN Student in an Organized Health Care Education/Training Program; FAMILY PHYSICIAN Family Medicine
DX: R39.198 Other difficulties with micturition (principal); F41.9 Anxiety disorder, unspecified; F31.9 Bipolar disorder, unspecified; G47.30 Sleep apnea, unspecified; G62.9 Polyneuropathy, unspecified; I10 Essential (primary) hypertension; I27.20 Pulmonary hypertension, unspecified; K21.9 Gastro-esophageal reflux disease without esophagitis; Z86.73 Personal history of transient ischemic attack (TIA), and cerebral infarction without residual deficits; Z90.49 Acquired absence of other specified parts of digestive tract
CPT/HCPCS: 99283; 80053; 81003; 85025

== ENCOUNTER 2025-01-05 12:15 | Emergency (ER) | payer MEDICARE, SELFPAY ==
[2025-01-05 12:18] VITALS: BP 109/80
[2025-01-05 13:15] VITALS: BMI 30.3
--- NOTE | 2025-01-05 13:15 | ED.GENMED ---
History of Present Illness
General
Chief Complaint: Chest Pain
Source: patient and spouse
Exam Limitations: none
Time Seen by Provider: 01/05/25 12:46
History of Present Illness
History of Present Illness:
Patient presents with multiple medical complaints. However his major reason to coming here from urgent care was a abnormal EKG per urgent care. Patient went to urgent care because of an ongoing cough. Patient feel like he may have aspirated. He
said the cough for 3 to 4 days. No chest pain pleuritic pain. He does have some mild exertional shoulder pain but this has been going on for months. Also chronic shortness of breath with exertion. 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
these issues. Secondarily he has been complaining of some low back pain with some pain of his anterior thighs bilaterally. He has no current urinary incontinence bowel or bladder incontinence. He states he has had a chronic Klonopin issue.
Past History
Past History
ED Past Medical History: Arrthythmia, CVA, GERD, HTN and Other (PSVT, bipolar, depression, pulmonary hypertension, sleep apnea, anxiety)
ED Past Surgical History: Appendectomy, Cholecystectomy and Orthopedic
Social History
Tobacco: Non-smoker
Alcohol: None
Drug: None
Personal:
Living: with family
Employment: Employed
Family History
Family History: Other (Noncontributory)
Review of Systems
Review of Systems
All Other Systems: Not applicable
Constitutional: Reports fatigue; Denies fever or chills
Respiratory: Reports cough; Denies hemoptysis
Cardiac: Denies palpitations or syncope
Phy Exam
Physical Exam
Physical Exam:
GENERAL: Alert and oriented in no apparent distress
EYE: Orbits normal.
NECK: Supple, no significant adenopathy.
ENT: Pharynx without erythema
CARDIAC: Regular rate and rhythm without any obvious murmurs.
LUNGS: Clear breath sounds,normal
ABDOMEN: Soft, without focal tenderness or distention
NEUROLOGICAL: Alert and oriented , grossly non-focal. Good plantar dorsiflexion of the foot. Able to straight leg raise. Good lower extremity strength. No perianal paresthesia. Rectal tone is good.
SKIN: Warm and dry, small open wound to the superior scalp
MUSCULOSKELETAL: Mild bilateral lower extremity edema
PSYCH: Normal and appropriate interaction.
Scores
Heart Score for Chest Pain Patients
STEMI patient?: Not applicable
Course
Orders/Labs/Results
Orders:
Orders
01/05/25 12:21
Electrocardiogram (*1) Urgent
Reason for Study: Shortness of Breath
EKG- Treatment ONCE
01/05/25 12:22
Chest [CR Chest - 2 Views ] Urgent
Comment:
Reason For Exam: SOB
01/05/25 13:13
CT Lumbar Spine W/o Iv Contras Urgent
Comment:
Reason For Exam: Low back pain/bilateral thigh pain
01/05/25 13:23
CPK [Creatine Phosphokinase] Urgent
ESR [Erythrocyte Sed Rate] Urgent
NT-proBNP Urgent
Troponin I Urgent
01/05/25 12:22
01/05/25 12:22
Vital Signs
Initial and Last Documented VS:
Initial Vital Signs
Temp Pulse Resp BP Pulse Ox
98.4 F 81 18 109/80 92
01/05/25 12:18 01/05/25 12:18 01/05/25 12:18 01/05/25 12:18 01/05/25 12:18
Last Documented Vital Signs
Temp Pulse Resp BP Pulse Ox
98.4 F 80 17 137/44 93
01/05/25 12:18 01/05/25 17:30 01/05/25 17:30 01/05/25 17:00 01/05/25 15:03
MDM/Problems Addressed
Differential Diagnosis Includes:
Patient with multiple medical complaints seemingly many of them are different unrelated issues.
1. Cough. Patient is in no respiratory distress. His lungs are clear. Chest x-ray reported is negative at urgent care. Possible bronchitis or mild aspiration. Nothing to support serious etiology. This was again the primary reason he came to
urgent care.
2. Abnormal EKG. At urgent care they were concerned he had some EKG changes. I am not convinced these are significant changes and is not describing any acute ischemic issues. His only issue that would be of some concern historically would be
some exertional shoulder issues and chronic shortness of breath although both his power plant assistant and trim stencil maker are aware of these issues and these are not new. We will however for completeness get a troponin. Second troponin not be necessary as
the patient has had the symptoms chronically for weeks to months.
3. Low back pain bilateral thigh pain. These issues have all been ongoing but have been slowly progressing over time. He has not had bladder or bowel incontinence. He has no current perianal anesthesia or poor rectal tone. His good lower
extremity strength. Clinically I do not feel this is an acute cauda equina issue. We will get a CT scan just to evaluate for any spinal stenosis.
*Radiology
Radiology exam reviewed: preliminary read by ED provider (Negative chest x-ray), radiology read reviewed (Negative chest x-ray) and all reviewed NAD by ED Provider (Degenerative changes. Minimal central canal stenosis)
*Pulse Oximetry
Patient hypoxic: no
*EKG
Interpreted by ED Provider?: Yes
Interpretation: abnormal
Comparison EKG: changes noted
Heart Rate: 82
Rate: normal
Rhythm: sinus and PAC's
[place]: left axis deviation
Interval: normal interval
QRS Pattern: right bundle branch block
Ischemia: non-specific ST changes
*Critical Care Note
Total Time (30-74mins, 75-104mins- exclusive of procedures): Not Applicable
Data Reviewed
Review of Other/Old Records Reveals: Labs, Records, Radiology Studies and Testing
Update Note
Update Note:
Patient is remained stable throughout his ER stay. He was able to void and emptied his bladder completely. Able to ambulate well. His back neurologic issues have been ongoing and chronic. I do not feel he has an acute cauda equina syndrome. He
has no perianal anesthesia's rectal tone is good good good lower extremity strength he is got minimal spinal stenosis by CT. As for the cough his lungs are clear to support a bacterial infection. He is not in CHF. There is a minimal bump in his
proBNP but I feel this is inconsequential. As for his abnormal EKG. I do not feel there is a significant change. He has had the symptoms for 3 to 4 days of the cough. Troponin is negative. He will follow-up with cardiology however. Admission
was offered although medically reasonable for outpatient management and he is comfortable with this approach
ED Attending Note
-
Portions of this chart may have been created with voice recognition software.� Occasional wrong word or��sound alike� substitutions may have occurred due to the inherent limitations of voice recognition software.
Discharge Plan
Departure
Patient Disposition: Home (Routine Discharge)
Date of Disposition: 01/05/25
Time of Disposition: 18:28
Patient with high blood pressure during this ER visit?: No
Discharge Problem:
Cough, Back pain/neuropathy
Instructions: Cough in adults - ED discharge instructions
Prescriptions:
No Action
diltiazem HCl 240 mg Capsule,Ext.Rel 24h Degradable
240 mg PO DAILY
clonazepam [Klonopin] 0.5 mg Tablet
1.5 mg PO 4XD
omeprazole [Prilosec] 40 mg Capsule,Delayed Release(Dr/Ec)
40 mg PO DAILY
tamsulosin 0.4 mg Capsule
0.8 mg PO DAILY
mirtazapine 30 mg Tablet
30 mg PO DAILY
losartan 100 mg Tablet
100 mg PO DAILY
lamotrigine [Lamictal] 100 mg Tablet
100 mg PO BID
Eliquis 5 mg Tablet
5 mg PO BID
Rx Instructions:
5mg am. 2.5mg pm
Colace 50 mg Capsule
100 mg PO DAILY
Referrals:
Mukul Concepcion Jr., DO [Family Provider] - Follow up in 2-3 days
Activity Restrictions/Additional Instructions:
Call your power plant assistant for close follow-up
Call your neurologist for close follow-up for your back issues
Return with any progressive chest pain shortness of breath exertional symptoms.
Also return with increased back pain leg numbness tingling weakness bowel or bladder concerns
Interventions
Interventions:
*Risk Screen - Suicide Last Done: 01/05/25 12:18
*General Assessment Last Done: 01/05/25 12:18
*Neglect/Abuse Screening Last Done: 01/05/25 12:18
ED- Fall Risk Assessment Last Done: 01/05/25 15:37
ED- Cardiac Assessment Last Done: 01/05/25 14:27
ED- Pulmonary Assessment Last Done: 01/05/25 15:37
Discharge Date and Time
Print Language: ESTONIAN
[2025-01-05 13:55] LABS: Creatine Phosphokinase 64 U/L (55-170)
[2025-01-05 14:05] LABS: Erythrocyte Sed Rate 13 mm/hour (0-20)
[2025-01-05 14:06] LABS: Troponin I 0.015 ng/ml
[2025-01-05 14:22] LABS: NT-proBNP 803 pg/ml
[2025-01-05 15:03] VITALS: BP 94/40
[2025-01-05 15:53] VITALS: BP 103/45
[2025-01-05 16:00] VITALS: BP 111/45
[2025-01-05 17:00] VITALS: BP 137/44
== END 2025-01-05 18:44 | disposition home or self-care (01) ==
LOC: EMR 12:15
PROVIDERS: Emergency Medicine; EMERGENCY PHYSICIAN Emergency Medicine; FAMILY PHYSICIAN Family Medicine
DX: R05.9 Cough, unspecified (principal); G62.9 Polyneuropathy, unspecified; M54.9 Dorsalgia, unspecified
CPT/HCPCS: 99285; 71046; 72131; 82550; 83880; 84484; 85652; 93005

== ENCOUNTER 2025-01-10 12:15 | Emergency (ER) | payer MEDICARE, SELFPAY ==
[2025-01-10 12:22] VITALS: BP 119/61
[2025-01-10 14:33] LABS: % Basophils 0.3 % (0-2); % Eosinophils 2.9 % (0-6); % Immature Granulocytes 0.3 % (0-0.5); % Lymphocytes 22.4 % (20.5-51.1); % Monocytes 9.8 % (1.7-9.3); % Neutrophils 64.3 % (42.2-75.2); Absolute Eosinophils 0.1 10^3/uL (0-0.7); Absolute Lymphocytes 0.9 10^3/uL (1.2-3.4); Absolute Monocytes 0.4 10^3/uL (0.1-0.6); Absolute Neutrophils 2.4 10^3/uL (1.4-6.5); Hematocrit 36.8 % (39.0-52.0); Hemoglobin 12.4 g/dL (13.0-18.0); Mean Corp Hgb Conc. 33.7 g/dL (33.0-37.0); Mean Corpuscular Hgb 30.6 pg (27.0-31.0); Mean Corpuscular Volume 90.9 fL (80.0-94.0); Mean Platelet Volume 11.4 fL (7.4-10.4); Nucleated Red Blood Cells % 0 % (-); Platelet Count 138 10^3/uL (130-400); Red Blood Cell Count 4.05 10^6/uL (4.70-6.10); Red Cell Dist. Width 12.1 % (11.5-14.5); White Blood Cell Count 3.8 10^3/uL (4.8-10.8)
[2025-01-10 14:40] LABS: ALT (SGPT) 26 U/L (0-50); AST (SGOT) 31 U/L (17-59); Albumin 3.5 g/dl (3.5-5.0); Alkaline Phosphatase 95 U/L (38-126); Blood Urea Nitrogen 24 mg/dl (9-20); Calcium 8.5 mg/dl (8.4-10.2); Carbon Dioxide 25 mmol/L (22-30); Chloride 106 mmol/L (98-107); Glucose 96 mg/dl (70-99); Potassium 4.6 mmol/L (3.5-5.1); Sodium 136 mmol/L (135-145); Total Bilirubin 0.4 mg/dl (0.2-1.3); Total Protein 5.5 g/dl (6.3-8.2); eGFR > 60.00
--- NOTE | 2025-01-10 15:14 | ED.GENMED ---
History of Present Illness
General
Chief Complaint: Cold/Flu/URI Symptoms
Time Seen by Provider: 01/10/25 13:22
History of Present Illness
History of Present Illness:
84-year-old male with history of atrial fibrillation on Eliquis, pulmonary hypertension, anxiety presenting to the emergency department for cough. Patient notes that he was diagnosed with the flu on Wednesday, 4 days ago. He does note that he had a
chest x-ray at that time which was normal. He was concerned today because he checked his temperature and it was 96. He also checked his oxygen and it was 96%. He was concerned that he may be getting septic so came to the emergency department for
further evaluation. Also notes that his sodium has been low in the past as well as his magnesium and is requesting electrolyte panel. Denies any fever. Denies any difficulty breathing or chest pain. Denies abdominal pain or GI symptoms. Denies
additional acute medical complaint
Past History
Past History
ED Past Medical History: Arrthythmia, CVA, GERD, HTN and Other (PSVT, bipolar, depression, pulmonary hypertension, sleep apnea, anxiety)
ED Past Surgical History: Appendectomy, Cholecystectomy and Orthopedic
Social History
Tobacco: Non-smoker
Alcohol: None
Drug: None
Personal:
Living: with family
Employment: Employed
Family History
Family History: Other (Noncontributory)
Phy Exam
Physical Exam
Physical Exam:
General: Well-appearing, no clinical signs of dehydration, nontoxic and in no acute distress
HEENT: protecting airway
Neck: appears supple
CV: Normal heart rate, regular rhythm, no evidence of cyanosis
Resp: No accessory muscle use, no increased work of breathing, lungs clear to auscultation bilaterally
Abd: No distention
Extremities: No deformities, no swelling
Neuro: alert, no focal neurologic deficit
: deferred
Rectal: deferred
Psych: Normal affect
Skin: Intact
Course
Orders/Labs/Results
Orders:
Orders
01/10/25 13:49
CR Chest - 2 Views Urgent
Comment:
Reason For Exam: cough
01/10/25 14:07
Complete Blood Count/With Diff Urgent
Comprehensive Metabolic Panel Urgent
Magnesium Urgent
Comment: ADD ON
01/10/25 14:13
Add On- LAB Urgent
Tests Added?: magnesium level
Abnormal Lab Results
01/10/25
14:07
WBC 3.8 L 10^3/uL
(4.8-10.8)
RBC 4.05 L 10^6/uL
(4.70-6.10)
Hgb 12.4 L g/dL
(13.0-18.0)
Hct 36.8 L %
(39.0-52.0)
MPV 11.4 H fL
(7.4-10.4)
Absolute Lymphs (auto) 0.9 L 10^3/uL
(1.2-3.4)
Monocytes % 9.8 H %
(1.7-9.3)
BUN 24 H mg/dl
(9-20)
Total Protein 5.5 L g/dl
(6.3-8.2)
01/10/25 14:07
01/10/25 14:07
Vital Signs
Initial and Last Documented VS:
Initial Vital Signs
Temp Pulse
98.1 F 70
01/10/25 12:19 01/10/25 12:19
Last Documented Vital Signs
Temp Pulse BP Pulse Ox
98.1 F 70 119/61 95
01/10/25 12:19 01/10/25 12:19 01/10/25 12:22 01/10/25 12:22
MDM/Problems Addressed
MDM/Problems Addressed:
84-year-old male with history of anxiety, A-fib on Eliquis and hypertension presenting for cough with known diagnosis of influenza. Vital signs are normal
On exam patient is very well-appearing, no acute distress or discomfort. Patient in no significant respiratory distress. Benign lung exam, no focal abnormal lung sounds. Patient was concerned because his vital signs at home showed a low
temperature and a normal oxygenation of 96%. His vital signs here are normal, normal temperature and again normal oxygenation. Low suspicion for any worsening of his known viral syndrome. He is requesting electrolyte panel and CBC, reports
history of electrolyte derangement in the past. Do suspect that patient's anxiety is driving some of his concerns. Will screen with laboratory analysis and repeat chest x-ray at patient's request. Will continue to monitor.
15:20 - Chest x-ray without acute cardiopulmonary disease. Patient with normal electrolyte panel. Patient remains hemodynamically stable. At this time feel that he is stable for discharge with continued outpatient supportive therapy. Return
precautions discussed and patient verbalized understanding.
*Critical Care Note
Total Time (30-74mins, 75-104mins- exclusive of procedures): Not Applicable
ED Attending Note
-
Portions of this chart may have been created with voice recognition software.� Occasional wrong word or��sound alike� substitutions may have occurred due to the inherent limitations of voice recognition software.
Discharge Plan
Departure
Prescriptions:
No Action
diltiazem HCl 240 mg Capsule,Ext.Rel 24h Degradable
240 mg PO DAILY
clonazepam [Klonopin] 0.5 mg Tablet
1.5 mg PO 4XD
omeprazole [Prilosec] 40 mg Capsule,Delayed Release(Dr/Ec)
40 mg PO DAILY
tamsulosin 0.4 mg Capsule
0.8 mg PO DAILY
mirtazapine 30 mg Tablet
30 mg PO DAILY
losartan 100 mg Tablet
100 mg PO DAILY
lamotrigine [Lamictal] 100 mg Tablet
100 mg PO BID
Eliquis 5 mg Tablet
5 mg PO BID
Rx Instructions:
5mg am. 2.5mg pm
Colace 50 mg Capsule
100 mg PO DAILY
Referrals:
Mukul Concepcion Jr., DO [Family Provider] -
Interventions
Interventions:
*Risk Screen - Suicide Last Done: 01/10/25 12:19
*General Assessment Last Done: 01/10/25 12:19
*Neglect/Abuse Screening Last Done: 01/10/25 12:19
ED- Fall Risk Assessment Last Done: 01/10/25 14:16
ED- Pulmonary Assessment Last Done: 01/10/25 14:16
Discharge Date and Time
Print Language: HEBREW
== END 2025-01-10 15:47 | disposition home or self-care (01) ==
LOC: EMR 12:15
PROVIDERS: EMERGENCY PHYSICIAN Student in an Organized Health Care Education/Training Program; FAMILY PHYSICIAN Family Medicine
DX: J11.1 Influenza due to unidentified influenza virus with other respiratory manifestations (principal); I48.91 Unspecified atrial fibrillation; I10 Essential (primary) hypertension; F41.9 Anxiety disorder, unspecified; Z79.01 Long term (current) use of anticoagulants; I27.20 Pulmonary hypertension, unspecified; G47.30 Sleep apnea, unspecified; K21.9 Gastro-esophageal reflux disease without esophagitis; Z86.73 Personal history of transient ischemic attack (TIA), and cerebral infarction without residual deficits; Z90.49 Acquired absence of other specified parts of digestive tract
CPT/HCPCS: 99284; 71046; 80053; 83735; 85025

== ENCOUNTER → 2025-02-07 15:07 | Outpatient (REF) | payer MEDICARE, SELFPAY | LOC: PAVMRI 15:07 | PROVIDERS: ATTENDING PHYSICIAN Nurse Practitioner Adult Health | DX: R33.9 Retention of urine, unspecified (principal); M54.42 Lumbago with sciatica, left side; M54.41 Lumbago with sciatica, right side | CPT/HCPCS: 72148 ==

== ENCOUNTER 2025-03-13 13:38 | Inpatient (IN) | payer MEDICARE, SELFPAY ==
[2025-03-13] VITALS (10 sets, daily range): BP systolic 92–120; BP diastolic 42–64; BMI 30.7; BMI 28.5
--- NOTE | 2025-03-13 11:34 | ED.GENMED ---
History of Present Illness
General
Chief Complaint: Change in Mental Status
Source: patient
Exam Limitations: none
Time Seen by Provider: 03/13/25 11:16
History of Present Illness
History of Present Illness:
See MDM
Past History
Past History
ED Past Medical History: Arrthythmia, CVA, GERD, HTN and Other (PSVT, bipolar, depression, pulmonary hypertension, sleep apnea, anxiety)
ED Past Surgical History: Appendectomy, Cholecystectomy and Orthopedic
Social History
Tobacco: Non-smoker
Alcohol: None
Drug: None
Personal:
Living: with family
Employment: Employed
Family History
Family History: Other (Noncontributory)
Phy Exam
Physical Exam
Physical Exam:
See MDM
Scores
NIH Stroke Score
Level of Consciousness: 0 - Alert
LOC Questions: 0-Answers both correctly
LOC Commands: 0-Performs both correctly
Best Horizontal Gaze: 0-Normal
Visual Demarco: 0=Normal, no visual loss
Facial Palsy: 0=Normal, symmetrical
Motor - Right Arm: 0=No drift 10 seconds
Motor - Left Arm: 0=No drift 10 seconds
Motor - Right Le-No drift 5 seconds
Motor - Left Le-No drift 5 seconds
Limb Ataxia: 0-Absent
Sensation: 0-Normal
Best Language: 0-No aphasia
Dysarthria: 1-Mild slurring
Extinction and Inattention: 0-No abnormality
Total Score:: 1
Course
Orders/Labs/Results
Orders:
Orders
03/13/25 11:32
Cardiac Monitoring- Treatment ONCE
IV Insert/Care/Rem.- Treatment PRN
Urinalysis Reflex To Culture Urgent
Date Specimen was Collected: 03/13/25
Time Specimen was Collected: 11:32
Vital Signs As Directed
Frequency: Other
03/13/25 11:33
ECG as needed As Directed
ECG as needed for:: Other reason
Other reason for ECG as needed:: speech changes
03/13/25 11:34
CT Head W/o Iv Contrast Urgent
Comment:
Reason For Exam: slurred speech x 5 days
Thyroid Stimulating Hormone to Reflex [TSH Reflex To Free T4] Urgent
03/13/25 11:37
Complete Blood Count/With Diff Urgent
Comprehensive Metabolic Panel Urgent
Abnormal Lab Results
03/13/25
11:37
RBC 4.25 L 10^6/uL
(4.70-6.10)
Hct 38.2 L %
(39.0-52.0)
MPV 11.8 H fL
(7.4-10.4)
Absolute Lymphs (auto) 0.8 L 10^3/uL
(1.2-3.4)
Lymphocytes % 14.6 L %
(20.5-51.1)
Monocytes % 9.4 H %
(1.7-9.3)
BUN 37 H mg/dl
(9-20)
03/13/25 11:37
03/13/25 11:37
Vital Signs
Initial and Last Documented VS:
Initial Vital Signs
Pulse Resp BP Pulse Ox
67 16 120/47 98
03/13/25 11:04 03/13/25 11:04 03/13/25 11:04 03/13/25 11:04
Last Documented Vital Signs
Temp Pulse Resp BP Pulse Ox
94.5 F L 50 18 97/56 96
03/13/25 11:49 03/13/25 11:49 03/13/25 11:49 03/13/25 11:30 03/13/25 11:31
MDM/Problems Addressed
Differential Diagnosis Includes:
HPI and MDM Narrative:
84-year-old male presenting for evaluation of slurred speech and being off balance. It appears there was a sudden change 5 days ago. His and children are worried about the acute change. Patient continues to dismiss his symptoms. states
that he is forgetting the names of his grandchildren. Patient blames this on not getting enough sleep. She references the slurred speech but patient blames this on muscle wasting. 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 He is on Eliquis for A-fib but he intermittently takes half a dose based on his age and creatinine. This was his own decision and not his doctor's decision.
On exam, patient does have dysarthria. Finger-nose is normal
I did reference my concern about a prior stroke. Will obtain CT head. If negative, will consider admission given persistent symptoms
Physical exam
General: Well appearing and non-toxic
HEENT: protecting airway. No facial paralysis
Neck: supple
CV: No evidence of cyanosis. Regular rate and rhythm
Resp: No accessory muscle use
Abd: Non-distended
Extremities: No deformities
Neuro: alert. Normal finger-nose. Mild dysarthria noted. Muscle strength intact in all 4 extremities
Psych: Normal affect
Skin: Intact
Problems Addressed including Acute and Chronic Conditions affecting care:
1. Dysarthria
Acuity: acute
Prognosis: stable
Details: Given duration of symptoms, will obtain CT head and basic blood work
Updates
CT head negative. It does show old infarct but nothing new. Given the persistent dysarthria, will admit for further workup. Urinalysis still pending
Differential Diagnosis (but not limited to): TIA, stroke, intracranial hemorrhage, hyponatremia
Testing considered: CT angiogram
Drug therapy (if applicable): OTC meds, please see d/c instruction regarding Rx drugs
Amount and/or Complexity of Data Reviewed
Clinical info obtained from: Patient
External data reviewed: N/A
Labs I independently reviewed (but not limited to): White blood cell count normal
Radiology: The CT scan was personally and independently reviewed. In addition, official CT report reviewed.
Pulse Ox: not hypoxic
EKG independently reviewed: N/A
Art Director: Sinus rhythm
Critical Care: N/A
Risk of Complication:
Social Determinants of health: Good social support
Discussed with other providers: Hospitalist
Escalation of Care includes Admit/Obs: Given the persistent dysarthria, will admit for further workup
Occasional wrong word or 'sound a like' substitutions may have occurred due to the inherent limitations of voice recognition software. Read the chart carefully and recognize, using context, where substitutions have occurred.
*Critical Care Note
Total Time (30-74mins, 75-104mins- exclusive of procedures): Not Applicable
ED Attending Note
-
Portions of this chart may have been created with voice recognition software.� Occasional wrong word or��sound alike� substitutions may have occurred due to the inherent limitations of voice recognition software.
Discharge Plan
Departure
Patient Disposition: Admit
Date of Disposition: 03/13/25
Time of Disposition: 12:55
Admit to: Telemetry
Presentation/result/management discussed w/ accepting MD/DO: Hospitalist
Discharge Problem:
Dysarthria
Prescriptions:
No Action
diltiazem HCl 240 mg Capsule,Ext.Rel 24h Degradable
240 mg PO DAILY
clonazepam [Klonopin] 0.5 mg Tablet
1.5 mg PO 4XD
omeprazole [Prilosec] 40 mg Capsule,Delayed Release(Dr/Ec)
40 mg PO DAILY
tamsulosin 0.4 mg Capsule
0.8 mg PO DAILY
mirtazapine 30 mg Tablet
30 mg PO DAILY
losartan 100 mg Tablet
100 mg PO DAILY
lamotrigine [Lamictal] 100 mg Tablet
100 mg PO BID
Eliquis 5 mg Tablet
5 mg PO BID
Rx Instructions:
5mg am. 2.5mg pm
Colace 50 mg Capsule
100 mg PO DAILY
Referrals:
Mukul Concepcion Jr., DO [Family Provider] -
Interventions
Interventions:
*Risk Screen - Suicide Last Done: 03/13/25 11:04
*General Assessment Last Done: 03/13/25 11:04
*Neglect/Abuse Screening Last Done: 03/13/25 11:44
*ED- Fall Risk Assessment Last Done: 03/13/25 11:40
*ED COVID-19 Vaccine History Last Done: 03/13/25 11:40
ED- Pulmonary Assessment Last Done: 03/13/25 11:56
ED- Neurological Assessment Last Done: 03/13/25 11:40
ED- Cardiac Assessment Last Done: 03/13/25 11:56
Discharge Date and Time
Print Language: SUDANESE
[2025-03-13 11:48] LABS: % Basophils 0.7 % (0-2); % Eosinophils 2.9 % (0-6); % Immature Granulocytes 0.4 % (0-0.5); % Lymphocytes 14.6 % (20.5-51.1); % Monocytes 9.4 % (1.7-9.3); Absolute Eosinophils 0.2 10^3/uL (0-0.7); Absolute Lymphocytes 0.8 10^3/uL (1.2-3.4); Absolute Monocytes 0.5 10^3/uL (0.1-0.6); Hematocrit 38.2 % (39.0-52.0); Hemoglobin 13.1 g/dL (13.0-18.0); Mean Corp Hgb Conc. 34.3 g/dL (33.0-37.0); Mean Corpuscular Hgb 30.8 pg (27.0-31.0); Mean Corpuscular Volume 89.9 fL (80.0-94.0); Mean Platelet Volume 11.8 fL (7.4-10.4); Nucleated Red Blood Cells % 0 % (-); Platelet Count 147 10^3/uL (130-400); Red Blood Cell Count 4.25 10^6/uL (4.70-6.10); Red Cell Dist. Width 12.7 % (11.5-14.5); White Blood Cell Count 5.6 10^3/uL (4.8-10.8)
--- NOTE | 2025-03-13 11:49 | EDRN ---
4 attempts. Pt was very reluctant to get a rectal temp done
[2025-03-13 12:07] LABS: ALT (SGPT) 28 U/L (0-50); AST (SGOT) 25 U/L (17-59); Albumin 4.6 g/dl (3.5-5.0); Alkaline Phosphatase 117 U/L (38-126); Blood Urea Nitrogen 37 mg/dl (9-20); Carbon Dioxide 24 mmol/L (22-30); Chloride 105 mmol/L (98-107); Estimated Creatinine Clearance 65 ml/min; Glucose 75 mg/dl (70-99); Potassium 4.4 mmol/L (3.5-5.1); Sodium 138 mmol/L (135-145); Total Bilirubin 0.6 mg/dl (0.2-1.3); Total Protein 6.6 g/dl (6.3-8.2); eGFR > 60.00
--- NOTE | 2025-03-13 13:24 | HPS.HSE ---
Addendum entered and electronically signed by Wilmar Granados MD 03/13/25 13:55:
Rx reconciliation and correction of med list
Allergies
Allergy/AdvReac Type Severity Reaction Status Date / Time
lidocaine Allergy Mild Unknown Verified 03/13/25 11:04
Quinolones Allergy Mild Unknown Verified 03/13/25 11:04
codeine AdvReac Unknown Nausea, Verified 03/13/25 11:04
stomach
pain
Home Medications
apixaban 5 mg tablet (Eliquis) 5 mg PO DIRECTED 06/07/23
clonazepam 0.5 mg tablet (Klonopin) 1.5 mg PO TID 06/07/23
lamotrigine 100 mg tablet (Lamictal) 100 mg PO BID 06/07/23
losartan 100 mg tablet 50 mg PO DAILY 06/07/23
mirtazapine 30 mg tablet 30 mg PO HS 06/07/23
omeprazole 40 mg capsule,delayed release 40 mg PO DAILY 06/07/23
tamsulosin 0.4 mg capsule 0.8 mg PO DAILY 06/07/23
clonazepam 0.5 mg tablet 0.66 mg PO HS 03/13/25
diltiazem HCl 240 mg capsule,extended release 24 hr 240 mg PO DAILY 03/13/25
furosemide 20 mg tablet (Lasix) 20 mg PO DAILY 03/13/25
lactulose 10 gram/15 mL oral solution 10 g PO HS 03/13/25
spironolactone 25 mg tablet 25 mg PO DAILY 03/13/25
Original Note:
Family Physician
-
Family Physician: Mukul Concepcion Jr.
Chief Complaint
-
slurred speech , loss balance
History of Present Illness
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
- slure speech for 5 days
- HCT shows old tiny left external capsule lacunar infarct , no new
- off balce with walking but not falls
- insomnia for last couple of days
= HX Eliquis for A flutter but he believes he has stage 3 CKD so he intermittently decreased his dose to 2.5mg.
- GFR > 60 on admission and on 01/10/25
Medical History
Past Medical History
Past Medical History: Reports Arrhythmia (A Fluter, PSVT ), CVA (Tiny old left external capsule lacunar infarct ), GERD, HTN and Hypercholesterolemia
Additional Past Medical History:
Pul HTN,
10/27/24 TTE LVEF 55-60% Enlarged right ventricular size with normal systolic function.
Past Surgical History: Reports Appendectomy, Cholecystectomy and Orthopedic
Social History
Tobacco: Non-smoker
Alcohol: None
Employment: Retired
Family History
Family History: Not pertinent
Allergies / Home Medications
Allergies reflects when Allergies were last updated in [facility].
Home Medications with original date entered in [facility]
Allergy/Medication List:
Laboratory Tests
03/13/25
11:37
WBC 5.6
Hgb 13.1
Plt Count 147
BUN 37 H
Creatinine 1.0
eGFR > 60.00
TSH (Reflex) Pending
Review of Systems
-
Constitutional: Reports No Symptoms
EENT: Reports See HPI
Respiratory: Reports No Symptoms
Cardiac: Reports No Symptoms
Abdomen/GI: Reports No Symptoms
: Reports No Symptoms
Musculoskeletal: Reports No Symptoms
Skin: Reports No Symptoms
Neurological: Reports See HPI
Endocrine: Reports No Symptoms
Hematologic/Lymphatic: Reports No Symptoms
Psych: Reports No Symptoms
Physical Exam
Vital Signs
Vital Signs
Temp Pulse Resp BP Pulse Ox
94.5 F L 52 14 100/53 99
03/13/25 11:49 03/13/25 13:00 03/13/25 13:00 03/13/25 13:00 03/13/25 12:45
Physical Exam
General: Slurred Speech
HEENT: NormoCephalic, Moist mucous membranes and Other (deep frontal scar depreesion of Rt fore head - healed )
Respiratory: Clear
Cardiac: S1/S2 and Regular Rhythm
Breast: Deferred by me
GI: Soft
Rectal: Deferred by Provider
Genito-urinary: Deferred by me
Neuro: Awake, Alert, AO x 3, No Motor Deficits, Slurred Speech and Other (symmetric FN coordination)
Psych: Calm
Laboratory Results
-
03/13/25 11:37
03/13/25 11:37
Laboratory Results
Total Bilirubin 0.6 mg/dl (0.2-1.3) 03/13/25 11:37
AST 25 U/L (17-59) 03/13/25 11:37
ALT 28 U/L (0-50) 03/13/25 11:37
Alkaline Phosphatase 117 U/L (38-126) 03/13/25 11:37
Data Reviewed
-
CT Scan: Report Reviewed by me
Medical Tests (Nuc Med, Echo, EKG etc): Report Reviewed by me
Lab Data: Labs Reviewed by me
Impression/Plan
-
Vital Signs
Temp Pulse Resp BP Pulse Ox
94.5 F L 52 14 100/53 99
03/13/25 11:49 03/13/25 13:00 03/13/25 13:00 03/13/25 13:00 03/13/25 12:45
Labs
01/10/25 03/13/25
14:07 11:37
Potassium 4.4
Carbon Dioxide 24
eGFR > 60.00
Pending UA
EKG
SINUS BRADYCARDIA
LEFT AXIS DEVIATION
RIGHT BUNDLE BRANCH BLOCK
ABNORMAL ECG
WHEN COMPARED WITH ECG OF 05-JAN-2025 12:24,
PREMATURE ATRIAL COMPLEXES ARE NO LONGER PRESENT
VENT. RATE HAS DECREASED BY 28 BPM
LEFT ANTERIOR FASCICULAR BLOCK IS NO LONGER PRESENT
T WAVE INVERSION NOW EVIDENT IN INFERIOR LEADS
NONSPECIFIC T WAVE ABNORMALITY NOW EVIDENT IN ANTERIOR LEADS
10/27/24 TTE
LVEF 55-60%
Enlarged right ventricular size with normal systolic function.
Compared to the prior on 06/22/2024, there is no change. Pulmonary pressures
were not assessed on today's study. Strain imaging was not done on the prior
study.
HCT
Tiny old left external capsule lacunar infarct again suspected.
No acute intracranial abnormality.
NO PRIOR hospitalist admission:
ASSESSMENT & PLAN
Pending Rx reconciliation
Evaluation for TIA/CVA
Acute slurred speech - NIH 1
Unsteadiness with balance dysfunction
Out of TNK window - onset is 5 days
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
NEG HCT for acute
- Brain MRI in AM
- PT/OT
- Neuro consult
HX A Flutter, PSVT, on chr Eliquis
eGFR > 60 times 2
- c/w Eliquis 5mg BID
- c/w Diltiazem CD 240 mg daily
Essential HTN
- c/w Losartan 100mg daily
Depression/anxiety
- c/w Lamictal, mirtazapine, clonazepam ???
BPH
- c/w Tamsulosin
DVT Px: on chr eliquis
Full code
IP TLM
[2025-03-13 13:34] LABS: Urine Albumin Negative (Neg - Trace); Urine Bilirubin Negative (Negative); Urine Character Clear (Clear); Urine Color Yellow; Urine Glucose Negative (Negative); Urine Ketone Negative (Negative); Urine Leukocyte Negative (Negative); Urine Nitrite Negative (Negative); Urine Occult Blood 4+ (Negative); Urine Specific Gravity 1.015 (<1.030); Urine Urobilinogen Negative (Neg - 1+)
--- NOTE | 2025-03-13 13:37 | CON.NEURO ---
Consultation
Order
Date of Consultation: 03/13/25
Requesting Provider: Kate Szymanski CRNP
Reason for Consult: Dysarthria
Neurology Consultation Note.
HPI: This is an 84-year-old right-handed man who presented to [facility] on 04/12/2024 with subacute dysarthria. According to the patient he developed an acute nonfluctuating dysarthria around 5 days ago. He has had chronic dysphagia
and denied diplopia, dyspnea, motor or sensory deficits.
The patient's slurred speech reportedly began 5 days ago and has remained fairly stable The patient has experienced a significant decline in his mobility over the past month, with increasing weakness in his legs and difficulty walking distances. He
has balance problems but does not use a cane.
The patient's longstanding peripheral neuropathy, initially purely sensory, has progressed to sensory-motor involvement. He experiences pins and needles sensations in his feet and arms, as well as cold intolerance.
Cognitively, the patient has noticed increased disorganization and has stopped reading novels due to difficulty remembering characters. He manages his finances but acknowledges not doing so effectively.
Star Swanson takes Eliquis 5 mg twice daily, with a reduced dose every other night due to possible CKD3A and fatty liver.
The patient has been reluctant to seek medical attention due to his anxiety. He lives at home with his and has not experienced any recent strokes, though he mentions a history of asymptomatic cerebrovascular events.
ER VS: 120/47-94/49, 67�50, T min�30 4.7C
EKG: Sinus bradycardia at 54.
PDMP: Clonazepam 0.5 mg 90 pills filled in on 02/01/2025 02/15/2025, 03/03/2025
Labs: Normal WBCs, hemoglobin,, glucose, calcium, GFR, TFTs, protein
CT head wo contrast-chronic left external capsule lacunar infarct.
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 CKD, hepatic steatosis, BPH, idiopathic polyneuropathy, KIRK
PSH: Bilateral bur holes, thyroid biopsy, cholecystectomy
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
FH: Not contributory to current presentation
All: Lidocaine, codeine, quinolones
ROS: Positive for fatigue
HENT: Negative for ear pain, hearing loss, tinnitus and trouble swallowing.
Eyes: Positive for hearing impairment
Respiratory: Positive for dyspnea on exertion
Cardiovascular: Negative for chest pain, palpitations and leg swelling.
Gastrointestinal: Positive for dysphagia to solids, negative for weight loss
Endocrine: Positive for cold intolerance
Genitourinary: Positive for urinary urgency
Musculoskeletal: Negative for back pain, gait problem, neck pain and neck stiffness.
Skin: Negative for rash.
Allergic/Immunologic: Negative. Negative for immunocompromised state.
Neurological: Positive for cognitive deficits, dysarthria, distal paresthesias
Psychiatric/Behavioral: Positive anxiety, insomnia
General: Well developed. In no acute distress.
Cardio: Regular rate and rhythm without murmur. Extremities are without cyanosis or edema.
Neuro:
Mental Status: Alert, oriented to person, place, and date. Impaired attention and preserved comprehension. Tangential. Good fund of knowledge. Follows complex requests across the midline. Comprehension, naming, and repetition intact.
Cranial Nerves: Pupils are equally round and reactive to light. EOMs full. Visual [place] full to confrontation. No ptosis. No nystagmus. V1-V3 intact to light touch and pinprick bilaterally, symmetric. Face symmetric. Poor hearing AU. The
palate elevated well. SCMs and traps 5/5. Tongue midline. No dysarthria.
Motor: Normal bulk and tone. No pronator or arm drift. Strength 5/5 throughout. No clonus.
Reflexes: Negative grasp bilaterally
Sensory: Impaired vibration at the toes and ankles
Coordination: Mild left action hand tremor
Gait: deferred
Assessment and Plan:
I. Subacute dysarthria. Differential diagnosis includes vascular versus toxic, less likely neuromuscular.
II. Chronic encephalopathy
III. Bipolar 2 disorder
-Continue Telemetry monitoring
-Aspiration precautions
-Dysphagia evaluation
-Avoid cerebral hypoperfusion
-Brain MRI without marylin
-Hold Eliquis until brain MRI is completed
-Please check CK, Lamictal level
-Will follow
-DVT prophylaxis.
I personally reviewed all radiology and labs along with past medical records pertinent to current medical problems. Total time spent in patient care is 60 minutes.
Thank you for allowing us to participate in the care of this patient. We will continue to follow. Please do not hesitate to contact us with any questions or concerns.
Subjective/Objective
Subjective Data
Date of Service: March 13, 2025
Objective Data
Vital Signs
Temp Pulse Resp BP Pulse Ox
34.7 C L 52 14 100/53 99
03/13/25 11:49 03/13/25 13:00 03/13/25 13:00 03/13/25 13:00 03/13/25 12:45
Lab Results
03/13/25 11:37
03/13/25 11:37
Sodium 138 mmol/L (135-145) 03/13/25 11:37
Potassium 4.4 mmol/L (3.5-5.1) 03/13/25 11:37
BUN 37 mg/dl (9-20) H 03/13/25 11:37
Glucose 75 mg/dl (70-99) 03/13/25 11:37
Calcium 10.0 mg/dl (8.4-10.2) 03/13/25 11:37
Patient Allergies
lidocaine Allergy (Mild, Verified 03/13/25 11:04)
Unknown
Quinolones Allergy (Mild, Verified 03/13/25 11:04)
Unknown
codeine Adverse Reaction (Unknown, Verified 03/13/25 11:04)
Nausea, stomach pain
Medications
-
Home Medications
�Medication �Instructions �Recorded
apixaban 5 mg tablet (Eliquis) 5 mg PO DIRECTED 06/07/23
clonazepam 0.5 mg tablet (Klonopin) 1.5 mg PO TID 06/07/23
lamotrigine 100 mg tablet 100 mg PO BID 06/07/23
(Lamictal)
losartan 100 mg tablet 50 mg PO DAILY 06/07/23
mirtazapine 30 mg tablet 30 mg PO HS 06/07/23
omeprazole 40 mg capsule,delayed 40 mg PO DAILY 06/07/23
release
tamsulosin 0.4 mg capsule 0.8 mg PO DAILY 06/07/23
clonazepam 0.5 mg tablet 0.66 mg PO HS 03/13/25
diltiazem HCl 240 mg 240 mg PO DAILY 03/13/25
capsule,extended release 24 hr
furosemide 20 mg tablet (Lasix) 20 mg PO DAILY 03/13/25
lactulose 10 gram/15 mL oral 10 g PO HS 03/13/25
solution
spironolactone 25 mg tablet 25 mg PO DAILY 03/13/25
Vital Signs and Labs
-
Vital Signs and Labs:
Vital Signs
Temp Pulse Resp BP Pulse Ox
34.7 C L 65 13 104/62 99
03/13/25 11:49 03/13/25 15:30 03/13/25 15:30 03/13/25 15:01 03/13/25 12:45
Lab Results
03/13/25 11:37
03/13/25 11:37
Sodium 138 mmol/L (135-145) 03/13/25 11:37
Potassium 4.4 mmol/L (3.5-5.1) 03/13/25 11:37
BUN 37 mg/dl (9-20) H 03/13/25 11:37
Glucose 75 mg/dl (70-99) 03/13/25 11:37
Calcium 10.0 mg/dl (8.4-10.2) 03/13/25 11:37
Home Medications
-
Home Medications
apixaban 5 mg tablet (Eliquis) 5 mg PO DIRECTED 06/07/23
clonazepam 0.5 mg tablet (Klonopin) 1.5 mg PO TID 06/07/23
lamotrigine 100 mg tablet (Lamictal) 100 mg PO BID 06/07/23
losartan 100 mg tablet 50 mg PO DAILY 06/07/23
mirtazapine 30 mg tablet 30 mg PO HS 06/07/23
omeprazole 40 mg capsule,delayed release 40 mg PO DAILY 06/07/23
tamsulosin 0.4 mg capsule 0.8 mg PO DAILY 06/07/23
clonazepam 0.5 mg tablet 0.66 mg PO HS 03/13/25
diltiazem HCl 240 mg capsule,extended release 24 hr 240 mg PO DAILY 03/13/25
furosemide 20 mg tablet (Lasix) 20 mg PO DAILY 03/13/25
lactulose 10 gram/15 mL oral solution 10 g PO HS 03/13/25
spironolactone 25 mg tablet 25 mg PO DAILY 03/13/25
[2025-03-13 13:44] LABS: Urine Bacteria Few (Negative); Urine Red Blood Cell 50-60 /HPF (0-2); Urine Squamous Cell 0-2 /LPF (Few); Urine White Cell 0-2 /HPF (0-5)
[2025-03-13] MEDS: KLONOPIN 0.75 MG PO ×2 (14:09→22:01)
[2025-03-13 16:20] LABS: TSH Reflex To Free T4 3.97 uIU/ml (0.47-4.68)
--- NOTE | 2025-03-13 17:00 | PTCARENOTE ---
Received patient from Ed at 1700. Patient ambulated from stretcher to bed with min assist. Patient is independent at home and use no devices to ambulate. Patient states, 'I have felt weaker lately and I should probably use a walker. I'll be ok to
walk to the bathroom by myself.' Patient asked to call before getting OOB, bed alarm placed.
[2025-03-13] MEDS: ELIQUIS 5 MG PO (21:00)
[2025-03-13] MEDS: LAMICTAL 100 MG PO (21:00)
[2025-03-13] MEDS: KLONOPIN 0.66 MG PO (21:01)
[2025-03-13] MEDS: DUPHALAC/CHRONULAC 10 GRAMS PO (21:01)
--- NOTE | 2025-03-13 21:18 | W.PN.UPDATE ---
Update Note
Progress Note Update
Patient has an order of Klonopin 1.5mg PO TID. Per the patient, he is taking one tab and half of klonopin 0.5mg total (0.75 mg TID), dose confirmed by PDMP and order changed.
[2025-03-13 21:52] LABS: Creatine Phosphokinase 59 U/L (55-170)
[2025-03-14] VITALS (8 sets, daily range): BP systolic 90–128; BP diastolic 43–78; PULSE 69; BMI 28.7
[2025-03-14] MEDS: REMERON 30 MG PO ×2 (00:06→21:55)
--- NOTE | 2025-03-14 07:27 | W.PN.HOSP.TC ---
Addendum entered and electronically signed by Zak Martino MD 03/14/25 23:06:
Attending Addendum-
I saw and evaluated the patient. I reviewed the resident�s note and agree with findings and plan as documented in the resident�s note. Sub: seen with present. dysarthria improved but still intermittent. Patient asking for multiple tets
including full body mri to r/o cancer. Denies any new w/n/t in any extremity CASTRO vision changes. Full 12 point ROS reviewed and negative except as documented Exam: Vitals reviewed in chart GEN-NAD HEENT divits in skull from previous palak hole x 2
heart RRR lungs clear abd soft LE no edema Neuro AAO x 3 MS 5/5 sensation intact no cerebellar deficits CN 2-12 GI, EOMI speech fluent
Plan:
# Dysarthria
- PT/OT/Speech
- CT showing no evidence of acute stroke
- r/u CVA
- could be med related
- Brain MRI-P
- check carotid Doppler
- pending Lamictal Level
-appreciate neuro input
#Chronic LE Sensor-motor deficits
#Ambulatory Dysfunction
- Lumbar MRI from 02/07/25 shows normal appearance of lower spinal cord w/o evidence of compression
- Endorses weakness during ambulation, unsteadiness of gate. No cerebellar findings on neurologic exam
- PT recommending SNF
- check B12/Folate level
#Dyspnea on Exertion
- Echo 09/2024-EF 55-60%, normal ventricular size/function, mild pulm. htn
- c/w Lasix and Spironolactone
- check BNP
#Persistent Afib
- holding Eliquis pending MRI results
- noncompliant
- c/o Diltiazem
- cont proper dosing of eliquis on DC
#Anxiety/Depression
- Takes mirtazapine, Klonopin
- Confirmed klonipin rx with PDMP
- recc tapering down slowly under medical supervision as outpatient
#H/O CVA
#Idiopathic Polyneuropathy - stable
#Bipolar II Disorder
- takes Lamictal [employer], Lamictal level-p
#KIRK, uncontrolled - patient reports diagnosis but does not use CPAP
#H/o Bilateral Traumatic Subdural Hematoma - s/p palak hole procedure
#Essential Hypertension - not on antihypertensives, will c/t monitor.
#Hepatic Steatosis - no LFT elevation. Will c/t trend
#BPH - c/w Flomax
DVT Ppx - holding Eliquis
Code Status - Full Code
Dispo from home PT rec SNF- DC in am
ACP
Patient consented to discuss, was with , time spent explanation of advance directives, changes in health status, patient�s health care wishes if the patient becomes unable to make health decisions, goals of care, code status, and prognosis- 16
minutes
Time spent coordinating care, review of plan of care with resident, personally reviewed previous records in EMR, med rec, labs, radiology, d/w nursing, family total time documented is exclusive of any additional time listed that was spent in advance
care planning discussion -�55 minutes
Original Note:
Today's Communication/Plan
-
pending further imaging (brain MRI, carotid doppler)
pending B12/folate/lamotrigine level
Assessment / Plan
Assessment / Plan
84 year old man presenting with x5 days of Dysarthria
#Subacute Dysarthria, possibly secondary to CVA
- CT showing no evidence of acute stroke
- Dysarthria not present on exam today, though patient endorses no improvement, he is speaking well
- Pending Brain MRI
- pending Lamictal Level
#Chronic LE Sensor-motor deficits
#Ambulatory Dysfunction
- Lumbar MRI from 02/07/25 shows normal appearance of lower spinal cord w/o evidence of compression
- Endorses weakness during ambulation, unsteadiness of gate. No cerebellar findings on neurologic exam
- Will observe Brain MRI for results
- PT recommending SNF
- pending B12/Folate level
#Dyspnea on Exertion
- patient endorses associated h/o dyspnea on exertion associated with increasing weakness over the past month
- Possible h/o heart failure as he reports taking Lasix for LE swelling (which he stopped on his own, and recently restarted) and Spironolactone, though there is no documented diagnosis.
- Last Echo from 10/27/2024 shows EF 55-60%, normal ventricular size/function, mild pulm. htn
- will obtain Carotid US to assess for
- c/w Lasix and Spironolactone
- STRONGLY encourage consistent follow up and medication compliance w/ [employer]
#Persistent Afib
- holding Eliquis pending MRI results
- He endorses self diagnosing CKD and then adjusting his own Eliquis dose based on this. He has been taking half dose Eliquis every other day.
(EGFR on our labs >60, investigation specialist clearance 32; no CKD or indication for reducing Eliquis dosing)
- c/o Diltiazem
- Follows with Dr. Chou but has not been seen recently.
#Anxiety/Depression
- Takes mirtazapine, clonipin 0.75mg TID and 0.875mg QHS. Increase to 1mg as impossible to administer 3/4 of a tablet appropriately.
- Confirmed Clonidine rx with PDMP
- recc tapering down slowly under medical supervision as outpatient
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
- patient reports some residual R sided motor weakness, consistent with prior infarct. Stable
#Idiopathic Polyneuropathy - stable
#Bipolar II Disorder
- takes Lamictal [employer], Lamictal level pending
#KIRK, uncontrolled - patient reports diagnosis but does not use CPAP
#H/o Bilateral Traumatic Subdural Hematoma - s/p palak hole procedure
#Essential Hypertension - not on antihypertensives, will c/t monitor.
#Hepatic Steatosis - no LFT elevation. Will c/t trend
#BPH - c/w Flomax
DVT Ppx - holding Eliquis
Code Status - Full Code
Anticipated Discharge: Within 24 hours
Subjective/Interval History
-
Date of Service: March 14, 2025
Seen this AM. Patient endorsing continued slurred speech unchanged. at bedside endorses improvement. No other acute sx at this time. No overnight events.
Objective Data
-
Vital Signs:
Vital Signs
Temp Pulse Resp BP Pulse Ox
97.5 F 67 20 126/59 96
03/14/25 03:54 03/14/25 03:54 03/14/25 03:54 03/14/25 03:54 03/14/25 03:54
I&O
03/13/25 03/14/25 03/15/25
06:59 06:59 06:59
Intake Total 480 / 480
Output Total 1000 / 1000
Balance -520 / -520
Review of Systems
-
History Source: Patient and Family
Constitutional: Reports No Symptoms
EENT: Reports No Symptoms Reported
Respiratory: Reports No Symptoms
Cardiac: Reports No Symptoms
Abdomen/GI: Reports No Symptoms
Breast: Reports N/A
Genitourinary: Reports No Symptoms
Musculoskeletal: Reports No Symptoms
Skin: Reports No Symptoms
Neuro: Reports Tremors and Other (dysarthria ); Denies Dizzy, Headache or Lightheadedness
Physical Exam
-
General: Well Developed, Well Nourished, No Apparent Distress, Comfortable and Conversant
HEENT: Normocephalic, Anicteric, [place] Conjunctivae, PERRLA, Nose Appears Normal and Ears Appear Normal; Negative Atraumatic (x2 Palak holes in the BL frontal skull )
Respiratory: Clear to Auscultation; Negative Wheezes, Rales or Rhonchi
Cardiac: Regular Rhythm and S1/S2; Negative Murmur
GI: Soft, Nontender, Nondistended and Normal Bowel Sounds
Musculoskeletal: No Clubbing, No Cyanosis and No Edema
Skin: Warm and Dry
Neuro: Awake, Alert, Oriented, Tremors and Other (CN II-XII grossly intact, motor strength 5/5 upper extremities, 4/5 and symmetric in the BL LE. + for Memory deficit); Negative Slurred Speech or Facial Droop
Psych: Calm
[2025-03-14 07:41] LABS: HDL Cholesterol 103 mg/dl; LDL Cholesterol, Calculated 33 mg/dl; Total Cholesterol 144 mg/dl (50-199); Triglyceride 42 mg/dl (10-149); Very Low Density Lipoprotein 8 mg/dl (0-30)
[2025-03-14] MEDS: KLONOPIN PO (09:04)
[2025-03-14] MEDS: PROTONIX 40 MG PO (09:05)
[2025-03-14] MEDS: ELIQUIS 5 MG PO ×2 (09:05→19:38)
[2025-03-14] MEDS: FLOMAX 0.8 MG PO (09:05)
[2025-03-14] MEDS: LASIX 20 MG PO (09:06)
[2025-03-14] MEDS: COZAAR 50 MG PO (09:06)
[2025-03-14] MEDS: ALDACTONE 25 MG PO (09:06)
[2025-03-14] MEDS: CARDIZEM CD 240 MG PO (09:07)
[2025-03-14] MEDS: FLUSH (NSS) 1 FLUSH IV (09:08)
[2025-03-14] MEDS: LAMICTAL 100 MG PO ×2 (09:08→19:38)
[2025-03-14 10:22] LABS: Glycohemoglobin (HgbA1c) 5.5 % (4.0-5.6)
--- NOTE | 2025-03-14 10:44 | W.PN.NEURO.1 ---
Today's Communication / Plan
-
.
Subjective/Objective
Subjective Data
Date of Service: March 14, 2025
Neurology Consultation Note.
Dr. Smiley reports no complaints. His dysarthria is not evident in the morning today.
Brain MRI, Lamictal level- pending
LDL�33. TSH�normal.
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 CKD, hepatic steatosis, BPH, idiopathic polyneuropathy, KIRK
PSH: Bilateral bur holes, thyroid biopsy, cholecystectomy
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
FH: Not contributory to current presentation
All: Lidocaine, codeine, quinolones
ROS: Positive for fatigue
HENT: Negative for ear pain, hearing loss, tinnitus and trouble swallowing.
Eyes: Positive for hearing impairment
Respiratory: Positive for dyspnea on exertion
Cardiovascular: Negative for chest pain, palpitations and leg swelling.
Gastrointestinal: Positive for dysphagia to solids, negative for weight loss
Endocrine: Positive for cold intolerance
Genitourinary: Positive for urinary urgency
Musculoskeletal: Negative for back pain, gait problem, neck pain and neck stiffness.
Skin: Negative for rash.
Allergic/Immunologic: Negative. Negative for immunocompromised state.
Neurological: Positive for cognitive deficits, dysarthria, distal paresthesias
Psychiatric/Behavioral: Positive anxiety, insomnia
General: Well developed. In no acute distress.
Cardio: Regular rate and rhythm without murmur. Extremities are without cyanosis or edema.
Neuro:
Mental Status: Alert, oriented to person, place, and date. Impaired attention and preserved comprehension. Tangential. Good fund of knowledge. Follows complex requests across the midline. Comprehension, naming, and repetition intact.
Cranial Nerves: Pupils are equally round and reactive to light. EOMs full. Visual caldwell full to confrontation. No ptosis. No nystagmus. V1-V3 intact to light touch and pinprick bilaterally, symmetric. Face symmetric. Poor hearing AU. The
palate elevated well. SCMs and traps 5/5. Tongue midline. No dysarthria.
Motor: Normal bulk and tone. No pronator or arm drift. Strength 5/5 throughout. No clonus.
Reflexes: Negative grasp bilaterally
Sensory: Impaired vibration at the toes and ankles
Coordination: Mild left action hand tremor
Gait: deferred
Assessment and Plan:
I. Subacute dysarthria, resolved differential diagnosis includes vascular versus toxic, less likely neuromuscular.
II. Chronic encephalopathy
III. Bipolar 2 disorder
-Continue Telemetry monitoring
-Aspiration precautions
-Dysphagia evaluation
-Brain MRI without marylin
-Hold Eliquis until brain MRI is completed
-Please check CK, Lamictal level
-Will follow
-DVT prophylaxis.
I personally reviewed all radiology and labs along with past medical records pertinent to current medical problems. Total time spent in patient care is 38 minutes.
Thank you for allowing us to participate in the care of this patient. We will continue to follow. Please do not hesitate to contact us with any questions or concerns
Objective Data
Vital Signs
Temp Pulse Resp BP Pulse Ox
36.4 C 65 16 113/67 96
03/14/25 07:15 03/14/25 09:07 03/14/25 07:15 03/14/25 09:07 03/14/25 08:57
Lab Results
03/13/25 11:37
03/13/25 11:37
Sodium 138 mmol/L (135-145) 03/13/25 11:37
Potassium 4.4 mmol/L (3.5-5.1) 03/13/25 11:37
BUN 37 mg/dl (9-20) H 03/13/25 11:37
Glucose 75 mg/dl (70-99) 03/13/25 11:37
Calcium 10.0 mg/dl (8.4-10.2) 03/13/25 11:37
LDL Cholesterol, Calc 33 mg/dl 03/14/25 06:12
Patient Allergies
lidocaine Allergy (Mild, Verified 03/13/25 11:04)
Unknown
Quinolones Allergy (Mild, Verified 03/13/25 11:04)
Unknown
codeine Adverse Reaction (Unknown, Verified 03/13/25 11:04)
Nausea, stomach pain
Vital Signs and Labs
-
Vital Signs and Labs:
Vital Signs
Temp Pulse Resp BP Pulse Ox
36.4 C 65 16 113/67 96
03/14/25 07:15 03/14/25 09:07 03/14/25 07:15 03/14/25 09:07 03/14/25 08:57
Lab Results
03/13/25 11:37
03/13/25 11:37
Sodium 138 mmol/L (135-145) 03/13/25 11:37
Potassium 4.4 mmol/L (3.5-5.1) 03/13/25 11:37
BUN 37 mg/dl (9-20) H 03/13/25 11:37
Glucose 75 mg/dl (70-99) 03/13/25 11:37
Calcium 10.0 mg/dl (8.4-10.2) 03/13/25 11:37
LDL Cholesterol, Calc 33 mg/dl 03/14/25 06:12
Medications
-
Medications:
Generic Name Dose Route Start Last Admin
Trade Name Freq PRN Reason Stop Dose Admin
Acetaminophen 650 mg 03/13/25 16:28
Acetaminophen 650 Mg Rectal Suppository RECTAL 04/10/25 16:27
Q4HPRN PRN
CASTRO, mild pain, or temp >100.4F
Acetaminophen 650 mg 03/13/25 16:28
Acetaminophen 325 Mg Tablet PO 04/10/25 16:27
Q4HPRN PRN
CASTRO, mild pain, or temp >100.4F
Apixaban 5 mg 03/13/25 20:00 03/14/25 09:05
Apixaban (Eliquis) 5 Mg Tablet PO 04/10/25 19:59 5 mg
BID VANESSA Administration
Clonazepam 0.66 mg 03/13/25 22:00 03/13/25 21:01
Clonazepam 0.5 Mg Tablet PO 04/10/25 21:59 0.66 mg
HS VANESSA Administration
Clonazepam 0.75 mg 03/13/25 22:00 03/14/25 09:04
Clonazepam 0.5 Mg Tablet PO 04/10/25 21:59 Not Given
TID VANESSA
Diltiazem HCl 240 mg 03/14/25 08:00 03/14/25 09:07
Diltiazem 240 Mg Extended Release (24 H) Capsule PO 04/11/25 07:59 240 mg
DAILY VANESSA Administration
Furosemide 20 mg 03/14/25 08:00 03/14/25 09:06
Furosemide 20 Mg Tablet PO 04/11/25 07:59 20 mg
DAILY VANESSA Administration
Lactulose 10 grams 03/13/25 22:00 03/13/25 21:01
Lactulose Solution (20 Grams/30 Ml) 30 Ml Cup PO 04/10/25 21:59 10 grams
HS VANESSA Administration
Lamotrigine 100 mg 03/13/25 20:00 03/14/25 09:08
Lamotrigine 100 Mg Tablet PO 04/10/25 19:59 100 mg
BID VANESSA Administration
Losartan Potassium 50 mg 03/14/25 08:00 03/14/25 09:06
Losartan 100 Mg Tablet PO 04/11/25 07:59 50 mg
DAILY VANESSA Administration
Mirtazapine 30 mg 03/13/25 22:00 03/14/25 00:06
Mirtazapine 30 Mg Tablet PO 04/10/25 21:59 30 mg
HS VANESSA Administration
Pantoprazole Sodium 40 mg 03/14/25 08:00 03/14/25 09:05
Pantoprazole 40 Mg Delayed Release Tablet PO 04/11/25 07:59 40 mg
DAILY VANESSA Administration
Sodium Chloride 0 flush 03/13/25 22:00 03/14/25 09:08
Sodium Chloride 0.9% (Flush) Syringe IV 04/10/25 21:59 1 flush
PER PROTOCOL VANESSA Administration
Spironolactone 25 mg 03/14/25 08:00 03/14/25 09:06
Spironolactone 25 Mg Tablet PO 04/11/25 07:59 25 mg
DAILY VANESSA Administration
Tamsulosin HCl 0.8 mg 03/14/25 08:00 03/14/25 09:05
Tamsulosin 0.4 Mg Capsule PO 04/11/25 07:59 0.8 mg
DAILY VANESSA Administration
Home Medications
-
Home Medications
apixaban 5 mg tablet (Eliquis) 5 mg PO DIRECTED 06/07/23
clonazepam 0.5 mg tablet (Klonopin) 0.75 mg PO TID 06/07/23
lamotrigine 100 mg tablet (Lamictal) 100 mg PO BID 06/07/23
losartan 100 mg tablet 50 mg PO DAILY 06/07/23
mirtazapine 30 mg tablet 30 mg PO HS 06/07/23
omeprazole 40 mg capsule,delayed release 40 mg PO DAILY 06/07/23
tamsulosin 0.4 mg capsule 0.8 mg PO DAILY 06/07/23
clonazepam 0.5 mg tablet 0.66 mg PO HS 03/13/25
diltiazem HCl 240 mg capsule,extended release 24 hr 240 mg PO DAILY 03/13/25
furosemide 20 mg tablet (Lasix) 20 mg PO DAILY 03/13/25
lactulose 10 gram/15 mL oral solution 10 g PO HS 03/13/25
spironolactone 25 mg tablet 25 mg PO DAILY 03/13/25
--- NOTE | 2025-03-14 11:52 | PTOTSP ---
Speech Language Pathology:
Initial speech therapy assessment completed. Patient presents with oropharyngeal WFL at bedside and minimal dysarthria.
Patient with history of dysphagia with known mild oropharyngeal dysphagia per prior VSE 04/2022. Patient reports intermittent stuck sensation at home with PO intake not observed this date. No overt s/s aspiration or difficulty noted across trials.
Speech characterized by mild imprecision and decreased rate in connected speech with good intelligibility. Current function is a decline per patient. Receptive/expressive language appears intact. Cognitive screening completed and revealed
�questionable impairment�. Unclear if current function below baseline
Recommend:
1) Diet: Regular solids, thin liquids
2) Strategies: upright positioning, slow rate, small bites and sips, alternate liquids and solids
3) Meds: as tolerated
4) Precautions: aspiration and reflux
ST to continue to follow to ensure diet tolerance and further speech and cognitive-communication assessment/intervention as indicated
--- NOTE | 2025-03-14 16:26 | PTCARENOTE ---
Pt AAO x3, RUIZ; OOB to chair/ambulates to BR with assist x1/walker, pt very unsteady w/OOB activity; denies weakness.dizziness. VSS. On room air- pulse ox 96%, no SOB noted. Abd soft, large, lucia PO well. Voids in urinal/BR without difficulty.
Pt currently off unit for MRI scan. Will continue to monitor.
--- NOTE | 2025-03-14 16:50 | CM ---
Attempted to meet with patient however he was out of room for test. Will see him tomorrow or call family if still unable to meet with him.
[2025-03-14] MEDS: KLONOPIN 0.75 MG PO ×2 (16:54→21:54)
[2025-03-14 18:48] LABS: Folate 7.9 ng/ml (2.76-20); Vitamin B12 798 pg/ml (239-931)
[2025-03-14] MEDS: KLONOPIN 1 MG PO (21:54)
[2025-03-14] MEDS: DUPHALAC/CHRONULAC 10 GRAMS PO (21:59)
[2025-03-15] VITALS (11 sets, daily range): BP systolic 85–132; BP diastolic 45–74; O2SAT 96; BMI 28.7; BMI 29.0
--- NOTE | 2025-03-15 03:30 | PTCARENOTE ---
Pt with multiple complaints t/o shift, constantly ringing call jaja. @ 193 complained of feeling faint while sitting in the chair, assisted back to bed w/o incident. BP soft 90/43. Reports faintness resolved while lying down. @ 1944 requesting
additional laxatives, instructed that lactulose was ordered for 2199, last BM 03/13. @ 2129 then c/o possibly 'having sepsis', requesting UA/C&S. Pt w/no urinary symptoms, fever, normotensive. @ 2299 then states 'I may have aspirated, I would like
a chest Xray', lung sounds clear, SpO2 98 on room air. Pt visibly anxious and emotional support provided. Pt acknowledges anxiety and 'perhaps a panic attack'. NIHSS 1, occasionial slurred speech, neuro check WNL. Call jaja w/in reach.
[2025-03-15 07:24] LABS: NT-proBNP 121 pg/ml
[2025-03-15 08:20] LABS: % Basophils 0.7 % (0-2); % Eosinophils 5.1 % (0-6); % Immature Granulocytes 0.5 % (0-0.5); % Lymphocytes 26.1 % (20.5-51.1); % Monocytes 10.1 % (1.7-9.3); % Neutrophils 57.5 % (42.2-75.2); Absolute Eosinophils 0.2 10^3/uL (0-0.7); Absolute Lymphocytes 1.1 10^3/uL (1.2-3.4); Absolute Monocytes 0.4 10^3/uL (0.1-0.6); Absolute Neutrophils 2.4 10^3/uL (1.4-6.5); Hematocrit 38.2 % (39.0-52.0); Mean Corpuscular Hgb 30.6 pg (27.0-31.0); Mean Corpuscular Volume 89.9 fL (80.0-94.0); Mean Platelet Volume 11.8 fL (7.4-10.4); Nucleated Red Blood Cells % 0 % (-); Platelet Count 146 10^3/uL (130-400); Red Blood Cell Count 4.25 10^6/uL (4.70-6.10); White Blood Cell Count 4.1 10^3/uL (4.8-10.8)
[2025-03-15] MEDS: KLONOPIN 0.75 MG PO ×2 (08:21→21:47)
[2025-03-15] MEDS: LASIX 20 MG PO (08:21)
[2025-03-15] MEDS: PROTONIX 40 MG PO (08:21)
[2025-03-15] MEDS: COZAAR 50 MG PO (08:22)
[2025-03-15] MEDS: CARDIZEM CD 240 MG PO (08:23)
[2025-03-15] MEDS: FLOMAX 0.8 MG PO (08:23)
[2025-03-15] MEDS: LAMICTAL 100 MG PO ×2 (08:23→19:46)
[2025-03-15] MEDS: ALDACTONE 25 MG PO (08:23)
[2025-03-15] MEDS: ELIQUIS 5 MG PO ×2 (08:24→19:46)
[2025-03-15] MEDS: FLUSH (NSS) 1 FLUSH IV (08:24)
[2025-03-15 08:56] LABS: ALT (SGPT) 32 U/L (0-50); AST (SGOT) 29 U/L (17-59); Albumin 3.8 g/dl (3.5-5.0); Alkaline Phosphatase 92 U/L (38-126); Blood Urea Nitrogen 28 mg/dl (9-20); Calcium 10.1 mg/dl (8.4-10.2); Carbon Dioxide 28 mmol/L (22-30); Chloride 102 mmol/L (98-107); Estimated Creatinine Clearance 52 ml/min; Glucose 78 mg/dl (70-99); Potassium 4.8 mmol/L (3.5-5.1); Sodium 138 mmol/L (135-145); Total Bilirubin 0.8 mg/dl (0.2-1.3); eGFR > 60.00
--- NOTE | 2025-03-15 09:12 | W.PN.NEURO.1 ---
Today's Communication / Plan
-
.
Subjective/Objective
Subjective Data
Date of Service: March 15, 2025
Neurology follow-up note
Dr. Smiley states that his dysarthria has significantly improved.
Brain MRI showed no acute abnormalities.
CD-no hemodynamically significant stenosis
LDL�33. TSH, CK�normal.
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 CKD, hepatic steatosis, BPH, idiopathic polyneuropathy, KIRK
PSH: Bilateral bur holes, thyroid biopsy, cholecystectomy
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
FH: Not contributory to current presentation
All: Lidocaine, codeine, quinolones
ROS: Positive for fatigue
HENT: Negative for ear pain, hearing loss, tinnitus and trouble swallowing.
Eyes: Positive for hearing impairment
Respiratory: Positive for dyspnea on exertion
Cardiovascular: Negative for chest pain, palpitations and leg swelling.
Gastrointestinal: Positive for dysphagia to solids, negative for weight loss
Endocrine: Positive for cold intolerance
Genitourinary: Positive for urinary urgency
Musculoskeletal: Negative for back pain, gait problem, neck pain and neck stiffness.
Skin: Negative for rash.
Allergic/Immunologic: Negative. Negative for immunocompromised state.
Neurological: Positive for cognitive deficits, dysarthria, distal paresthesias
Psychiatric/Behavioral: Positive anxiety, insomnia
General: Well developed. In no acute distress.
Cardio: Regular rate and rhythm without murmur. Extremities are without cyanosis or edema.
Neuro:
Mental Status: Alert, oriented to person, place, and date. Impaired attention and preserved comprehension. Increased processing time. Tangential. Good fund of knowledge. Follows complex requests across the midline. Comprehension, naming, and
repetition intact.
Cranial Nerves: Pupils are equally round and reactive to light. EOMs full. Visual [place]dwell full to confrontation. No ptosis. No nystagmus. Face symmetric. Poor hearing AU. The palate elevated well. SCMs and traps 5/5. Tongue midline. Mild
labial dysarthria.
Motor: Normal bulk and tone. No pronator or arm drift. Strength 5/5 throughout. No clonus.
Coordination: No dysmetria
Gait: deferred
Assessment and Plan:
I. Subacute dysarthria. Differential diagnosis includes toxic versus neurodegenerative versus neuromuscular junction disorder
II. Chronic encephalopathy
III. FABRICIO, insomnia
- Continue Telemetry monitoring
- Aspiration precautions
- Restart Eliquis
- Please follow-up Lamictal level, MG panel
- Outpatient neurology psychiatry follow-up
I personally reviewed all radiology and labs along with past medical records pertinent to current medical problems. Total time spent in patient care is 36 minutes.
Thank you for allowing us to participate in the care of this patient. Please do not hesitate to contact us with any questions or concerns
Objective Data
Vital Signs
Temp Pulse Resp BP Pulse Ox
36.4 C 64 18 128/59 99
03/15/25 07:20 03/15/25 08:23 03/15/25 07:20 03/15/25 08:23 03/15/25 08:18
Lab Results
03/15/25 07:46
03/15/25 07:46
Sodium 138 mmol/L (135-145) 03/15/25 07:46
Potassium 4.8 mmol/L (3.5-5.1) 03/15/25 07:46
BUN 28 mg/dl (9-20) H 03/15/25 07:46
Glucose 78 mg/dl (70-99) 03/15/25 07:46
Calcium 10.1 mg/dl (8.4-10.2) 03/15/25 07:46
Isi-I-Yypodbmcdvw Pept 121 pg/ml 03/15/25 06:37
LDL Cholesterol, Calc 33 mg/dl 03/14/25 06:12
Vitamin B12 798 pg/ml (765-841) 03/14/25 06:12
Patient Allergies
lidocaine Allergy (Mild, Verified 03/13/25 11:04)
Unknown
Quinolones Allergy (Mild, Verified 03/13/25 11:04)
Unknown
codeine Adverse Reaction (Unknown, Verified 03/13/25 11:04)
Nausea, stomach pain
Vital Signs and Labs
-
Vital Signs and Labs:
Vital Signs
Temp Pulse Resp BP Pulse Ox
36.4 C 64 18 128/59 99
03/15/25 07:20 03/15/25 08:23 03/15/25 07:20 03/15/25 08:23 03/15/25 08:18
Lab Results
03/15/25 07:46
03/15/25 07:46
Sodium 138 mmol/L (135-145) 03/15/25 07:46
Potassium 4.8 mmol/L (3.5-5.1) 03/15/25 07:46
BUN 28 mg/dl (9-20) H 03/15/25 07:46
Glucose 78 mg/dl (70-99) 03/15/25 07:46
Calcium 10.1 mg/dl (8.4-10.2) 03/15/25 07:46
Wgy-O-Wqypyetijqm Pept 121 pg/ml 03/15/25 06:37
LDL Cholesterol, Calc 33 mg/dl 03/14/25 06:12
Vitamin B12 798 pg/ml (926-981) 03/14/25 06:12
Medications
-
Medications:
Generic Name Dose Route Start Last Admin
Trade Name Freq PRN Reason Stop Dose Admin
Acetaminophen 650 mg 03/13/25 16:28
Acetaminophen 650 Mg Rectal Suppository RECTAL 04/10/25 16:27
Q4HPRN PRN
CASTRO, mild pain, or temp >100.4F
Acetaminophen 650 mg 03/13/25 16:28
Acetaminophen 325 Mg Tablet PO 04/10/25 16:27
Q4HPRN PRN
CASTRO, mild pain, or temp >100.4F
Apixaban 5 mg 03/13/25 20:00 03/15/25 08:24
Apixaban (Eliquis) 5 Mg Tablet PO 04/10/25 19:59 5 mg
BID VANESSA Administration
Clonazepam 0.75 mg 03/13/25 22:00 03/15/25 08:21
Clonazepam 0.5 Mg Tablet PO 04/10/25 21:59 0.75 mg
TID VANESSA Administration
Clonazepam 0.5 mg 03/15/25 22:00
Clonazepam 0.5 Mg Tablet PO 04/12/25 21:59
HS VANESSA
Diltiazem HCl 240 mg 03/14/25 08:00 03/15/25 08:23
Diltiazem 240 Mg Extended Release (24 H) Capsule PO 04/11/25 07:59 240 mg
DAILY VANESSA Administration
Furosemide 20 mg 03/14/25 08:00 03/15/25 08:21
Furosemide 20 Mg Tablet PO 04/11/25 07:59 20 mg
DAILY VANESSA Administration
Lactulose 10 grams 03/13/25 22:00 03/14/25 21:59
Lactulose Solution (20 Grams/30 Ml) 30 Ml Cup PO 04/10/25 21:59 10 grams
HS VANESSA Administration
Lamotrigine 100 mg 03/13/25 20:00 03/15/25 08:23
Lamotrigine 100 Mg Tablet PO 04/10/25 19:59 100 mg
BID VANESSA Administration
Losartan Potassium 50 mg 03/14/25 08:00 03/15/25 08:22
Losartan 100 Mg Tablet PO 04/11/25 07:59 50 mg
DAILY VANESSA Administration
Mirtazapine 30 mg 03/13/25 22:00 03/14/25 21:55
Mirtazapine 30 Mg Tablet PO 04/10/25 21:59 30 mg
HS VANESSA Administration
Pantoprazole Sodium 40 mg 03/14/25 08:00 03/15/25 08:21
Pantoprazole 40 Mg Delayed Release Tablet PO 04/11/25 07:59 40 mg
DAILY VANESSA Administration
Sodium Chloride 0 flush 03/13/25 22:00 03/15/25 08:24
Sodium Chloride 0.9% (Flush) Syringe IV 04/10/25 21:59 1 flush
PER PROTOCOL VANESSA Administration
Spironolactone 25 mg 03/14/25 08:00 03/15/25 08:23
Spironolactone 25 Mg Tablet PO 04/11/25 07:59 25 mg
DAILY VANESSA Administration
Tamsulosin HCl 0.8 mg 03/14/25 08:00 03/15/25 08:23
Tamsulosin 0.4 Mg Capsule PO 04/11/25 07:59 0.8 mg
DAILY VANESSA Administration
Home Medications
-
Home Medications
apixaban 5 mg tablet (Eliquis) 5 mg PO DIRECTED 06/07/23
clonazepam 0.5 mg tablet (Klonopin) 0.75 mg PO TID 06/07/23
lamotrigine 100 mg tablet (Lamictal) 100 mg PO BID 06/07/23
losartan 100 mg tablet 50 mg PO DAILY 06/07/23
mirtazapine 30 mg tablet 30 mg PO HS 06/07/23
omeprazole 40 mg capsule,delayed release 40 mg PO DAILY 06/07/23
tamsulosin 0.4 mg capsule 0.8 mg PO DAILY 06/07/23
clonazepam 0.5 mg tablet 0.375 mg PO HS 03/13/25
diltiazem HCl 240 mg capsule,extended release 24 hr 240 mg PO DAILY 03/13/25
furosemide 20 mg tablet (Lasix) 20 mg PO DAILY 03/13/25
lactulose 10 gram/15 mL oral solution 10 g PO HS 03/13/25
spironolactone 25 mg tablet 25 mg PO DAILY 03/13/25
--- NOTE | 2025-03-15 12:18 | W.PN.HOSP.TC ---
Addendum entered and electronically signed by Zak Martino MD 03/15/25 22:05:
Attending Addendum-
I saw and evaluated the patient. I reviewed the resident�s note and agree with findings and plan as documented in the resident�s note. Sub: seen with present. dysarthria improved but intermittent. Denies any new w/n/t in any extremity CASTRO vision
changes. Full 12 point ROS reviewed and negative except as documented Exam: Vitals reviewed in chart GEN-NAD HEENT divits in skull from previous shital hole x 2 heart RRR lungs clear abd soft LE no edema Neuro AAO x 3 MS 5/5 sensation intact no
cerebellar deficits CN 2-12 GI, EOMI speech fluent
Plan:
# Dysarthria
- PT/OT/Speech
- CT showing no evidence of acute stroke
- r/u CVA
- could be med related
- Brain MRI-No acute intracranial abnormality noted. No acute infarct.
- check carotid Doppler - b/l calcified plaques < 50%
- pending Lamictal Level
-appreciate neuro input
#Chronic LE Sensor-motor deficits
#Ambulatory Dysfunction
- Lumbar MRI from 02/07/25 shows normal appearance of lower spinal cord w/o evidence of compression
- Endorses weakness during ambulation, unsteadiness of gate. No cerebellar findings on neurologic exam
- PT recommending SNF
- B12/Folate WNL
#Dyspnea on Exertion
- Echo 09/2024-EF 55-60%, normal ventricular size/function, mild pulm. htn
- c/w Lasix and Spironolactone
- check BNP-WNL
#Persistent Afib
- restart Eliquis
- noncompliant
- c/o Diltiazem
- cont proper dosing of eliquis on DC
#Anxiety/Depression
- Takes mirtazapine, Klonopin
- Confirmed Klonopin rx with PDMP
- rec tapering down slowly under medical supervision as outpatient
#H/O CVA
#Idiopathic Polyneuropathy - stable
#Bipolar II Disorder
- takes Lamictal SOW MANAGER, Lamictal level-p
#KIRK, uncontrolled - patient reports diagnosis but does not use CPAP
#H/o Bilateral Traumatic Subdural Hematoma - s/p shital hole procedure
#Essential Hypertension
#Hepatic Steatosis
#BPH - c/w Flomax
DVT Ppx - holding Eliquis
Code Status - Full Code
Dispo from home PT rec SNF- DC in am
Time spent coordinating care, review of plan of care with resident, personally reviewed records in EMR, med rec, consults, notes, labs, radiology, d/w nursing � 52 mins
Original Note:
Today's Communication/Plan
-
Pending d/c to SNF
Assessment / Plan
Assessment / Plan
84 year old man presenting with x5 days of Dysarthria
#Subacute Dysarthria, possibly secondary to CVA
- CT showing no evidence of acute stroke. Evidence of old lacunar infarct.
- Dysarthria not present on exam today, though patient endorses no improvement, he is speaking well
- Brain MRI - No acute intracranial abnormality noted. No acute infarct. Chronic evidence of infarct in body of R lateral ventricle and inf. margin of L cerebellum.
- pending Lamictal Level
#Chronic LE Sensor-motor deficits
#Ambulatory Dysfunction
- Lumbar MRI from 02/07/25 shows normal appearance of lower spinal cord w/o evidence of compression
- Endorses weakness during ambulation, unsteadiness of gate. No cerebellar findings on neurologic exam
- Brain MRI showing chronic infarcts in areas that by our estimation can account for his chronic symptoms of imbalance and residual right sided weakness.
- PT recommending SNF
- B12/Folate level wnl
#Dyspnea on Exertion, possible secondary to deconditioning
- patient endorses associated h/o dyspnea on exertion associated with increasing weakness over the past month
- Possible h/o heart failure as he reports taking Lasix for LE swelling (which he stopped on his own, and recently restarted) and Spironolactone, though there is no documented diagnosis.
- Last Echo from 10/27/2024 shows EF 55-60%, normal ventricular size/function, mild pulm. htn
- Pro-BNP 121
- Carotid US showing Calcified plaques within BOTH proximal internal carotid arteries, <50% stenosis
- c/w Lasix and Spironolactone
- STRONGLY encourage consistent follow up and medication compliance w/ Hothouse Worker, echo as outpatient to assess, though he does not display urgent signs or symptoms of acute heart failure exacerbation
#Persistent Afib
- Resume Eliquis
- He endorses self diagnosing CKD and then adjusting his own Eliquis dose based on this. He has been taking half dose Eliquis every other day.
(EGFR on our labs >60, automatic transmission mechanic clearance 32; no CKD or indication for reducing Eliquis dosing)
- c/o Diltiazem
- Follows with Dr. Chou but has not been seen recently.
#Anxiety/Depression
- Takes mirtazapine, clonidine 0.75mg TID and 0.375mg QHS. Increase to 1mg as impossible to administer 3/4 of a tablet appropriately.
- Confirmed Clonidine rx with PDMP
- rec tapering down slowly under medical supervision as outpatient
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
- patient reports some residual R sided motor weakness, consistent with prior infarcts seen on imaging. Stable
#Idiopathic Polyneuropathy - stable
#Bipolar II Disorder
- takes Lamictal SOW MANAGER, Lamictal level pending
#KIRK, uncontrolled - patient reports diagnosis but does not use CPAP
#H/o Bilateral Traumatic Subdural Hematoma - s/p shital hole procedure
#Essential Hypertension - not on antihypertensives, will c/t monitor.
#Hepatic Steatosis - no LFT elevation. Will c/t trend
#BPH - c/w Flomax
DVT Ppx - holding Eliquis
Code Status - Full Code
Anticipated Discharge: Within 24 hours
Subjective/Interval History
-
Date of Service: March 15, 2025
Feeling well this morning. No acute complaints, no overnight events.
Objective Data
-
Labs:
Laboratory Results
03/15/25
07:46
WBC 4.1 L
Hgb 13.0
Hct 38.2 L
Plt Count 146
Sodium 138
Potassium 4.8
Chloride 102
Carbon Dioxide 28
BUN 28 H
Creatinine 1.1
Glucose 78
Calcium 10.1
Total Bilirubin 0.8
AST 29
ALT 32
Alkaline Phosphatase 92
Vital Signs:
Vital Signs
Temp Pulse Resp BP Pulse Ox
97.7 F 64 18 127/74 94
03/15/25 11:14 03/15/25 11:14 03/15/25 11:14 03/15/25 11:14 03/15/25 11:14
I&O
03/14/25 03/15/25 03/16/25
06:59 06:59 06:59
Intake Total 480 / 480 1380 / 1380
Output Total 1000 / 1000 1350 / 1350 400 / 400
Balance -520 / -520 30 / 30 -400 / -400
Review of Systems
-
History Source: Patient
Constitutional: Reports No Symptoms
EENT: Reports No Symptoms Reported
Respiratory: Reports No Symptoms
Cardiac: Reports No Symptoms
Abdomen/GI: Reports No Symptoms
Genitourinary: Reports No Symptoms
Musculoskeletal: Reports No Symptoms
Skin: Reports No Symptoms
Neuro: Reports No Symptoms
Physical Exam
-
General: Well Developed, Well Nourished, No Apparent Distress, Comfortable and Conversant
HEENT: Normocephalic, Anicteric, [place] Conjunctivae, No Ptosis, Nose Appears Normal and Ears Appear Normal; Negative Atraumatic (shital holes x2)
Respiratory: Clear to Auscultation; Negative Wheezes, Rales or Rhonchi
Cardiac: Regular Rhythm and S1/S2; Negative Murmur or Rub
Breast: N/A
GI: Soft, Nontender, Nondistended and Normal Bowel Sounds
Genito-urinary: No Costovertebral Tender
Musculoskeletal: No Clubbing, No Cyanosis and No Edema
Skin: Warm, Dry and IV Access / Catheter Site
Neuro: Awake, Alert and Oriented
--- NOTE | 2025-03-15 16:04 | PTCARENOTE ---
Pt AAO x3, RUIZ; OOB to chair with assist x1; very unsteady with OOB activity. NIHSS1- pt with occ slight word-slurring. VSS. Telemetry:NSR with BBC. On room air- pulse ox 98%, no SOB noted. Abd soft, rounded, lucia PO well; aspiration prec
maintained; no dysphagia noted. Voids in urinal without difficulty; has (+) stress incont; wears own Depends.. resting comfortably at present. Will continue to monitor.
--- NOTE | 2025-03-15 16:26 | CM ---
Placed a call to patient's to obtain information for assessment. She stated that patient lives with her in a single story home with no steps to enter. He was independent with all of his ADLs, personal care, dressing and bathing. 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 He had no DME. Never has been to a SNF.
Patient has a prescription plan and uses, [facility] on [address] for all of his medications.
Patient's PCP is, Mukul Muniz
Spoke with patient's about the indication for SNF and she stated that she would like referrals sent to [facility] as it is right up the street and was agreeable with Dion Bradley, and Scott Buitrago as well. Will make referrals.
Plan: Case management will continue to follow and assist with discharge planning. Patient will most likely need SNF at discharge.
[2025-03-15] MEDS: KLONOPIN PO ×2 (16:49→17:18)
[2025-03-15 17:05] LABS: Glucose - Point of Care 149 mg/dl (70-99)
--- NOTE | 2025-03-15 17:21 | RR ---
A Rapid Response was called on this patient, please see Rapid Response form.
--- NOTE | 2025-03-15 17:21 | PTCARENOTE ---
Found pt sitting in chair minimally responsive; not able to answer questions/respond to commands. Telemetry showing SB 40's. FIELD CONTACT PERSON called, pt returned to bed with assist x4; upon return to bed pt became awake and responsive; has recall of PT working
with him this afternoon, has no recall of being returned to bed. BP 85/46; repeat BP 94/45. Accucheck BS 149. EKG done. Pt currently AAO x3, speech sl slurred at times; RUIZ well. Dr. Lane at bedside with pt at present. Will continue to
monitor.
[2025-03-15 17:33] LABS: Hematocrit 40.5 % (39.0-52.0); Hemoglobin 13.8 g/dL (13.0-18.0); Mean Corp Hgb Conc. 34.1 g/dL (33.0-37.0); Mean Corpuscular Hgb 31.2 pg (27.0-31.0); Mean Corpuscular Volume 91.4 fL (80.0-94.0); Mean Platelet Volume 12.3 fL (7.4-10.4); Platelet Count 189 10^3/uL (130-400); Red Blood Cell Count 4.43 10^6/uL (4.70-6.10); White Blood Cell Count 7.5 10^3/uL (4.8-10.8)
[2025-03-15 17:45] LABS: ALT (SGPT) 33 U/L (0-50); AST (SGOT) 31 U/L (17-59); Albumin 4.8 g/dl (3.5-5.0); Alkaline Phosphatase 101 U/L (38-126); Blood Urea Nitrogen 33 mg/dl (9-20); Calcium 10.1 mg/dl (8.4-10.2); Carbon Dioxide 23 mmol/L (22-30); Chloride 101 mmol/L (98-107); Estimated Creatinine Clearance 36 ml/min; Glucose 137 mg/dl (70-99); Potassium 5.7 mmol/L (3.5-5.1); Sodium 136 mmol/L (135-145); Total Bilirubin 0.7 mg/dl (0.2-1.3); Total Protein 6.9 g/dl (6.3-8.2); eGFR 42.75
--- NOTE | 2025-03-15 17:49 | PTCARENOTE ---
K+ level drawn during FURNACE COMBINATION ANALYST 5.7; Dr. Lane notified..
[2025-03-15] MEDS: NSS 500 IV (17:56)
[2025-03-15 17:57] LABS: Troponin I < 0.012 ng/ml
--- NOTE | 2025-03-15 18:40 | W.PN.UPDATE ---
Addendum entered and electronically signed by Zak Martino MD 03/15/25 22:09:
reviewed events with Dr. Lane agree with assessment- likely med related, dehydration, and vagal-decrease Cardizem add hold parameters, hold lasix and spironolactone, start IVF new JORGE, EKG reviewed-sinus sylvia, and trop x 1 neg, check ECHO in am.
Pantera Martino MD
Original Note:
Update Note
Progress Note Update
AIRCRAFT RESTORER called for symptomatic hypotension and bradycardia.
Patient was found sitting in his chair and was lethargic, but responsive. no sybcope, SOB, cp, palpitations, fevers or chills. BP was found to be 86/46 and HR was in the 40s. He was moved to the bed and repeat pressure showed 95/45 with HR in the
50s. POC glucose was 114. ECG was done which showed sinus sylvia w/ sinus arrhythmia and known RBBB unchanged from admission. CBC showed no leukocytosis. CMP showing new JORGE with decontaminator 1.6 from 1.1 this AM and K 5.7 from 4.8. Bladder scan 378ml. Trops
negative. Patient remained awake and communicative throughout. Repeat BP after several minutes was 105/52 with HR of 65. No atropine given. 500cc NS bolus ordered. Cardiology consult placed, ECHO in the am.
[2025-03-15] MEDS: NSS 1000 IV (19:42)
[2025-03-15] MEDS: KLONOPIN 0.5 MG PO (21:44)
[2025-03-15] MEDS: REMERON 30 MG PO (21:44)
[2025-03-15] MEDS: DUPHALAC/CHRONULAC 10 GRAMS PO (21:45)
[2025-03-16] MEDS: OCEAN, SALINE MIST 2 SPRAYS NASAL (00:26)
[2025-03-16 03:17] VITALS: BP 120/60
[2025-03-16 07:20] VITALS: BP 123/58
[2025-03-16 07:43] LABS: Blood Urea Nitrogen 34 mg/dl (9-20); Calcium 9.2 mg/dl (8.4-10.2); Carbon Dioxide 24 mmol/L (22-30); Chloride 106 mmol/L (98-107); Estimated Creatinine Clearance 52 ml/min; Glucose 86 mg/dl (70-99); Potassium 4.4 mmol/L (3.5-5.1); Sodium 138 mmol/L (135-145); eGFR > 60.00
[2025-03-16] MEDS: NSS 1000 IV (08:08)
[2025-03-16] MEDS: PROTONIX 40 MG PO (08:08)
[2025-03-16] MEDS: LAMICTAL 100 MG PO ×2 (08:09→20:19)
[2025-03-16] MEDS: ELIQUIS 5 MG PO ×2 (08:09→20:19)
[2025-03-16] MEDS: FLOMAX 0.8 MG PO (08:09)
[2025-03-16] MEDS: KLONOPIN 0.75 MG PO ×3 (08:09→21:49)
[2025-03-16 08:16] LABS: % Basophils 0.7 % (0-2); % Eosinophils 4.5 % (0-6); % Immature Granulocytes 0.6 % (0-0.5); % Lymphocytes 23.2 % (20.5-51.1); % Monocytes 8.2 % (1.7-9.3); % Neutrophils 62.8 % (42.2-75.2); Absolute Eosinophils 0.2 10^3/uL (0-0.7); Absolute Lymphocytes 1.2 10^3/uL (1.2-3.4); Absolute Monocytes 0.4 10^3/uL (0.1-0.6); Absolute Neutrophils 3.4 10^3/uL (1.4-6.5); Hematocrit 38.8 % (39.0-52.0); Hemoglobin 13.2 g/dL (13.0-18.0); Mean Corpuscular Hgb 30.8 pg (27.0-31.0); Mean Corpuscular Volume 90.4 fL (80.0-94.0); Mean Platelet Volume 12.3 fL (7.4-10.4); Nucleated Red Blood Cells % 0 % (-); Platelet Count 150 10^3/uL (130-400); Red Blood Cell Count 4.29 10^6/uL (4.70-6.10); White Blood Cell Count 5.4 10^3/uL (4.8-10.8)
[2025-03-16] MEDS: CARDIZEM CD 180 MG PO (09:19)
--- NOTE | 2025-03-16 09:58 | CON.CAR ---
Addendum entered and electronically signed by Albaro Stephenson MD 03/16/25 10:52:
I saw and examined the patient.
The CAGE OPERATOR's note was reviewed and I agree with the note.
Comment:
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
presents with dysarthria. Cardiology is consulted for an episode of bradycardia and hypotension that occurred last night around 5 PM when he was sitting in the chair to eat dinner. He reports that he had been in bed all day, got up to eat dinner,
and felt lightheaded. Review of telemetry shows sinus bradycardia with heart rate in the 40s. No pauses or AV block. Symptoms resolved with getting back into bed and IV fluids. He feels back to baseline today.
Physical exam with regular rate and rhythm, no murmurs, no lower extremity edema, clear lungs
For his episode of bradycardia and hypotension, I suspect that this was a vasovagal event. He has since recovered and is feeling back to baseline. I would stop IV fluids to avoid volume overload. I agree with decreasing his diltiazem from 240 to
180 mg which the primary team has already done. He should wear compression stockings. His JORGE seems to have resolved this morning. Resume Lasix, losartan and spironolactone tomorrow if kidney function and BPs remain stable.
Cardiology will sign off at this time. Please call with any additional questions or concerns.
Original Note:
Consultation
Consultation Request
Date/Time Consultation Requested: 03/15/25 6:30p
Date/Time Consultation Performed: 03/16/25 8:30a
Requesting Provider: Dr. Lane
Performing Provider: TAY Colindres for Dr. Stephenson
Reason for Consultation: bradycardia/hypotension
Medical History
-
Chief Complaint: dysarthria
History of Present Illness:
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
presents with dysarthria. He is admitted to the hospitalist service and we are consulted for an episode of bradycardia with hypotension while sitting last night. BP 86/46, pulse 44 bpm, this improved 105/52, pulse 65 after several minutes. His
labs showed JORGE 1.6, K 5.7, his Lasix, and Aldactone are held. Cardizem dose was reduced from 240mg to 180mg. Vitals are stable, he denies any cardiac complaints today or recently.
Past Medical History
Past Medical History: Other (as above)
Past Surgical History: Other (as above)
Social History
Tobacco: Non-Smoker
Personal:
Living: With Family
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
Family History
Family History: Reviewed & Not Pertinent
Allergies / Home Medications
Allergy/AdvReac Type Severity Reaction Status Date / Time
codeine Allergy Nausea, Verified 03/15/25 17:35
stomach
pain
lidocaine Allergy Unknown Verified 03/15/25 17:35
Quinolones Allergy mental Verified 03/15/25 17:35
status
changes/withdrawal
�Medication �Instructions �Recorded �Confirmed �Type
apixaban 5 mg tablet (Eliquis) 5 mg PO DIRECTED 06/07/23 03/13/25 History
clonazepam 0.5 mg tablet (Klonopin) 0.75 mg PO TID 06/07/23 03/13/25 History
lamotrigine 100 mg tablet 100 mg PO BID 06/07/23 03/13/25 History
(Lamictal)
losartan 100 mg tablet 50 mg PO DAILY 06/07/23 03/13/25 History
mirtazapine 30 mg tablet 30 mg PO HS 06/07/23 03/13/25 History
omeprazole 40 mg capsule,delayed 40 mg PO DAILY 06/07/23 03/13/25 History
release
tamsulosin 0.4 mg capsule 0.8 mg PO DAILY 06/07/23 03/13/25 History
clonazepam 0.5 mg tablet 0.375 mg PO HS 03/13/25 03/15/25 History
diltiazem HCl 240 mg 240 mg PO DAILY 03/13/25 03/13/25 History
capsule,extended release 24 hr
furosemide 20 mg tablet (Lasix) 20 mg PO DAILY 03/13/25 03/13/25 History
lactulose 10 gram/15 mL oral 10 g PO HS 03/13/25 03/13/25 History
solution
spironolactone 25 mg tablet 25 mg PO DAILY 03/13/25 03/13/25 History
Review of Systems
-
History Source: Patient
All other systems: Negative unless noted
Physical Exam
Vital Signs
Temp Pulse Resp BP Pulse Ox
97.7 F 74 16 123/58 94
03/16/25 07:20 03/16/25 07:20 03/16/25 07:20 03/16/25 07:20 03/16/25 08:10
Lab Results
03/16/25 07:38
03/16/25 07:02
Troponin I < 0.012 ng/ml 03/15/25 17:00
Hry-A-Abuqjfyumli Pept 121 pg/ml 03/15/25 06:37
Physical Exam
General: Well Developed, Well Nourished and No Apparent Distress
HEENT: Normocephalic and Anicteric
Respiratory: Clear and Non Labored Respirations
Cardiac: S1/S2 and Regular Rhythm
Breast: Deferred by me
GI: Soft, Non Tender and Normal Bowel Sounds
Rectal: Deferred by Provider
Musculoskeletal: No Clubbing, No Cyanosis and No Edema
Neuro: AO x 3
Psych: Calm
Impression / Plan
-
Bradycardia - one episode last night with rates down to 44 bpm.
- resolved after minutes back into 60s.
- no recurrence.
- no advanced heart block or arrhythmia on tele.
- continue to monitor on tele.
- agree with Cardizem dose reduced to 180mg from 240mg.
Hypotension - acute episode last night.
- 86/46 while sitting, moved to bed and improved 95/45 then 105/52.
- Cardizem dose reduced as above.
- stable BP this am, continue to monitor.
Atrial flutter - stable.
- SB/SR on Cardizem with dose reduced as above.
- Eliquis 5mg BID, continue.
RBBB - chronic, stable.
Dysarthria - neurology following.
Data Reviewed
-
EKG: Tracing Personally Visualized and interpreted
Medical Tests (Nuc Med, Echo etc): Report Reviewed by me
Labs: Labs Reviewed by me
Old Records: Reviewed
[2025-03-16 11:25] VITALS: BP 95/47
--- NOTE | 2025-03-16 14:23 | W.PN.HOSP.TC ---
Addendum entered and electronically signed by Zak Martino MD 03/16/25 20:15:
Attending Addendum-
I saw and evaluated the patient. I reviewed the resident�s note and agree with findings and plan as documented in the resident�s note. Sub: seen with and daughter present. dysarthria improved but intermittent. Denies any new w/n/t in any
extremity CASTRO vision changes. Asking multiple questions and repeating them. 'I had a stroke, my Klonopin is ot causing my dysarthria, can i see a php web developer' Had VV episode yesterday-SHAKE LOADER was called. Full 12 point ROS reviewed and negative except
as documented Exam: Vitals reviewed in chart GEN-NAD HEENT divots in skull from previous shital hole x 2, heart RRR lungs clear abd soft LE no edema Neuro AAO x 3 MS 5/5 sensation intact no cerebellar deficits CN 2-12 GI, EOMI speech - intermittent
dysarthria
Plan:
# Dysarthria
- unclear etiology
- PT/OT/Speech
- acute CVA ruled out
- could be med related
- seems to have progression of cognitive impairment
- Brain MRI-No acute intracranial abnormality noted. No acute infarct.
- carotid Doppler - b/l calcified plaques < 50%
- Lamictal Level low normal
- appreciate neuro input
# JORGE
- resolved s/p IVF
- repeat BMP in am
# Vasovagal Episode
- SHAKE LOADER on 03/15
- repeat echo- 03/16 Normal left ventricular size and systolic function without regional wall motion abnormality. LVEF 60-65%. unchanged from previous
- decreased Cardizem
- cards input appreciated
#Persistent Afib
- cont Eliquis (noncompliant)
- decrease Diltiazem
#Anxiety/Depression
- chroninc benzo use
- take whatever dose he thinks is appropriate for him
- cont mirtazapine, Klonopin
- Confirmed Klonopin on PDMP
- rec tapering down slowly under medical supervision as outpatient
#H/O CVA
#Idiopathic Polyneuropathy - stable
#Bipolar II Disorder- Lamictal SALES PERFORMANCE ANALYST, Lamictal level-low normal
#KIRK, uncontrolled - patient reports diagnosis but does not use CPAP
#H/o Bilateral Traumatic Subdural Hematoma - s/p shital hole procedure
#Hepatic Steatosis
#BPH - c/w Flomax
DVT Ppx - holding Eliquis
Code Status - Full Code
Dispo- DC to SNF when able- awaiting placement - CM aware - medically stable
Time spent coordinating care, review of plan of care with resident, personally reviewed records in EMR, med rec, consults, notes, labs, radiology, d/w nursing daughter � 55 mins
Original Note:
Today's Communication/Plan
-
Obtain Echo
Resume antihypertensives tomorrow
c/w decreased Diltiazem dose, follow up Cardiology
stable for d/c to SNF pending placement
Assessment / Plan
Assessment / Plan
84 year old man presenting with x5 days of Dysarthria
#Acute Symptomatic Bradycardia
#Acute Symptomatic Hypotension
- SHAKE LOADER called, patient had no LOC or cp, ECG non ischemic, trops negative
- Likely Vasovagal
- cardiology consulted, pending Echo
- BP meds held, Diltiazem decreased to 180mg
#JORGE, pre-renal (resolved)
- CMP during SHAKE LOADER showing elevated surgical rn 1.1--1.6 and K from 4.8 --5.7.
- Given 500cc bolus and started on IVF, surgical rn today returned to 1.1 and K 4.4.
- pre-renal cause from hypotension 2/2 vasovagal episode vs. hypovolemia
- will d/c fluids today to avoid overload
#Subacute Dysarthria, unspecified etiology, likely neurodegenerative
- CT showing no evidence of acute stroke. Evidence of old L external capsule lacunar infarct.
- Dysarthria not present on exam today, though patient endorses no improvement, he is speaking well. There is some residual decrease in resting muscle tone on the R side of the face
- Brain MRI - No acute intracranial abnormality noted. No acute infarct. Chronic evidence of infarct in body of R lateral ventricle and inf. margin of L cerebellum.
- pending MG panel to rule out neuromuscular junction disorder
- pending Lamictal Level for possible toxic causes
#Chronic LE Sensor-motor deficits
#Ambulatory Dysfunction
- Lumbar MRI from 02/07/25 shows normal appearance of lower spinal cord w/o evidence of compression
- Endorses weakness during ambulation, unsteadiness of gate. No cerebellar findings on neurologic exam
- Brain MRI showing chronic infarcts in areas that by our estimation can account for his chronic symptoms of imbalance and residual right sided weakness.
- B12/Folate level wnl
- PT recommending SNF
#Dyspnea on Exertion, possible secondary to deconditioning
- patient endorses associated h/o dyspnea on exertion associated with increasing weakness over the past month
- Possible h/o heart failure as he reports taking Lasix for LE swelling (which he stopped on his own, and recently restarted) and Spironolactone, though there is no documented diagnosis.
- Last Echo from 10/27/2024 shows EF 55-60%, normal ventricular size/function, mild pulm. htn
- Pro-BNP 121
- Carotid US showing Calcified plaques within BOTH proximal internal carotid arteries, <50% stenosis
- c/w Lasix and Spironolactone
- pending Echo
- STRONGLY encourage consistent follow up and medication compliance w/ Inspector Precision Assembly, echo as outpatient to assess, though he does not display urgent signs or symptoms of acute heart failure exacerbation
#Persistent Afib
- Resume Eliquis
- He endorses self diagnosing CKD and then adjusting his own Eliquis dose based on this. He has been taking half dose Eliquis every other day.
(EGFR on our labs >60, surgical rn clearance 32; no CKD or indication for reducing Eliquis dosing)
- c/o Diltiazem
- Follows with Dr. Chou but has not been seen recently.
#Anxiety/Depression
- Takes mirtazapine, clonidine 0.75mg TID and 0.375mg QHS. Increase to 1mg as impossible to administer 3/4 of a tablet appropriately.
- Confirmed Clonidine rx with PDMP
- rec tapering down slowly under medical supervision as outpatient
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
- patient reports some residual R sided motor weakness, consistent with prior infarcts seen on imaging. Stable
#Idiopathic Polyneuropathy - stable
#Bipolar II Disorder
- takes Lamictal SALES PERFORMANCE ANALYST, Lamictal level pending
#KIRK, uncontrolled - patient reports diagnosis but does not use CPAP
#H/o Bilateral Traumatic Subdural Hematoma - s/p shital hole procedure
#Essential Hypertension - not on antihypertensives, will c/t monitor.
#Hepatic Steatosis - no LFT elevation. Will c/t trend
#BPH - c/w Flomax
DVT Ppx - holding Eliquis
Code Status - Full Code
Anticipated Discharge: Within 24 hours
Subjective/Interval History
-
Date of Service: March 16, 2025
Feeling well, no lightheadedness, dizziness, chest pain, sob. SHAKE LOADER from last night for symptomatic hypotension/bradycardia, see update note. No new episodes of bradycardia or hypotension since.
Objective Data
-
Labs:
Laboratory Results
03/16/25 03/16/25
07:02 07:38
WBC 5.4
Hgb 13.2
Hct 38.8 L
Plt Count 150 D
Sodium 138
Potassium 4.4
Chloride 106
Carbon Dioxide 24
BUN 34 H
Creatinine 1.1
Glucose 86
Calcium 9.2
Vital Signs:
Vital Signs
Temp Pulse Resp BP Pulse Ox
97.9 F 69 16 95/47 95
03/16/25 11:25 03/16/25 11:25 03/16/25 11:25 03/16/25 11:25 03/16/25 11:25
I&O
03/15/25 03/16/25 03/17/25
06:59 06:59 06:59
Intake Total 1380 / 1380 1830 / 1830
Output Total 1350 / 1350 900 / 900
Balance 930 / 930
Review of Systems
-
Unable to obtain full review of systems at this time due to: Dementia
History Source: Patient
Constitutional: Reports No Symptoms
EENT: Reports No Symptoms Reported
Respiratory: Reports No Symptoms
Cardiac: Reports No Symptoms
Abdomen/GI: Reports No Symptoms
Genitourinary: Reports No Symptoms
Musculoskeletal: Reports No Symptoms
Neuro: Reports No Symptoms
Physical Exam
-
General: Well Developed, Well Nourished, No Apparent Distress, Comfortable and Conversant
HEENT: Normocephalic, Moist Mucous Membranes, Anicteric and Dargan Conjunctivae; Negative Atraumatic
Respiratory: Clear to Auscultation; Negative Wheezes, Rales or Rhonchi
Cardiac: Regular Rhythm and S1/S2; Negative Murmur or Rub
Breast: N/A
GI: Soft, Nontender, Nondistended and Normal Bowel Sounds
Musculoskeletal: No Clubbing, No Cyanosis and No Edema
Skin: Warm, Dry and IV Access / Catheter Site
Neuro: Awake, Alert and Oriented
[2025-03-16 15:10] LABS: Lamotrigine (Lamictal) 3.7 ug/mL (3.0-15.0)
[2025-03-16 15:48] VITALS: BP 109/52
[2025-03-16 19:36] VITALS: BP 134/50
[2025-03-16] MEDS: DUPHALAC/CHRONULAC 10 GRAMS PO (21:49)
[2025-03-16] MEDS: REMERON 30 MG PO (21:49)
[2025-03-16] MEDS: KLONOPIN 0.5 MG PO (21:50)
[2025-03-16 23:54] VITALS: BP 134/64
[2025-03-17 03:04] VITALS: BP 132/62
[2025-03-17 06:12] LABS: % Basophils 0.5 % (0-2); % Eosinophils 5.6 % (0-6); % Immature Granulocytes 0.2 % (0-0.5); % Lymphocytes 19.1 % (20.5-51.1); % Monocytes 9.3 % (1.7-9.3); % Neutrophils 65.3 % (42.2-75.2); Absolute Eosinophils 0.3 10^3/uL (0-0.7); Absolute Lymphocytes 1.2 10^3/uL (1.2-3.4); Absolute Monocytes 0.6 10^3/uL (0.1-0.6); Absolute Neutrophils 3.9 10^3/uL (1.4-6.5); Hematocrit 36.1 % (39.0-52.0); Hemoglobin 12.3 g/dL (13.0-18.0); Mean Corp Hgb Conc. 34.1 g/dL (33.0-37.0); Mean Corpuscular Hgb 30.8 pg (27.0-31.0); Mean Corpuscular Volume 90.5 fL (80.0-94.0); Nucleated Red Blood Cells % 0 % (-); Platelet Count 143 10^3/uL (130-400); Red Blood Cell Count 3.99 10^6/uL (4.70-6.10); Red Cell Dist. Width 12.7 % (11.5-14.5)
[2025-03-17 06:44] LABS: ALT (SGPT) 32 U/L (0-50); AST (SGOT) 24 U/L (17-59); Albumin 3.9 g/dl (3.5-5.0); Alkaline Phosphatase 111 U/L (38-126); Blood Urea Nitrogen 29 mg/dl (9-20); Calcium 9.4 mg/dl (8.4-10.2); Carbon Dioxide 24 mmol/L (22-30); Chloride 106 mmol/L (98-107); Estimated Creatinine Clearance 57 ml/min; Glucose 92 mg/dl (70-99); Potassium 4.4 mmol/L (3.5-5.1); Sodium 136 mmol/L (135-145); Total Bilirubin 0.5 mg/dl (0.2-1.3); Total Protein 5.8 g/dl (6.3-8.2); eGFR > 60.00
[2025-03-17 07:31] VITALS: BP 137/55
[2025-03-17] MEDS: PROTONIX 40 MG PO (09:21)
[2025-03-17] MEDS: FLOMAX 0.8 MG PO (09:21)
[2025-03-17] MEDS: CARDIZEM CD 180 MG PO (09:21)
[2025-03-17] MEDS: ELIQUIS 5 MG PO (09:21)
[2025-03-17] MEDS: LAMICTAL 100 MG PO (09:21)
[2025-03-17] MEDS: KLONOPIN 0.75 MG PO ×2 (09:22→16:17)
[2025-03-17] MEDS: DULCOLAX 10 MG RECTAL (09:26)
[2025-03-17 11:57] VITALS: BP 136/54
--- NOTE | 2025-03-17 12:19 | W.PN.HOSP.TC ---
Today's Communication/Plan
-
Discharge to SNF
Resume Lasix/Aldactone/losartan at DC
Follow-up MG panel as OP
Bisacodyl as needed at [facility]
Assessment / Plan
Assessment / Plan
84 year old man presenting with x5 days of Dysarthria
#Acute Symptomatic Bradycardia
#Acute Symptomatic Hypotension
- SOLAR MECHANICAL ENGINEER called, patient had no LOC or cp, ECG non ischemic, trops negative
- Likely Vasovagal
- cardiology consulted, pending Echo
- BP meds held, Diltiazem decreased to 180mg
#JORGE, pre-renal (resolved)
- CMP during SOLAR MECHANICAL ENGINEER showing elevated patrol captain 1.1--1.6 and K from 4.8 --5.7.
- Given 500cc bolus and started on IVF, patrol captain today returned to 1.1 and K 4.4.
- pre-renal cause from hypotension 2/2 vasovagal episode vs. hypovolemia
- will d/c fluids today to avoid overload
- Renal function stable, resume Lasix/losartan/Aldactone at discharge
#Subacute Dysarthria, unspecified etiology, likely neurodegenerative
- CT showing no evidence of acute stroke. Evidence of old L external capsule lacunar infarct.
- Dysarthria not present on exam today, though patient endorses no improvement, he is speaking well. There is some residual decrease in resting muscle tone on the R side of the face
- Brain MRI - No acute intracranial abnormality noted. No acute infarct. Chronic evidence of infarct in body of R lateral ventricle and inf. margin of L cerebellum.
- pending MG panel to rule out neuromuscular junction disorder
- pending Lamictal Level for possible toxic causes
#Chronic LE Sensor-motor deficits
#Ambulatory Dysfunction
- Lumbar MRI from 02/07/25 shows normal appearance of lower spinal cord w/o evidence of compression
- Endorses weakness during ambulation, unsteadiness of gate. No cerebellar findings on neurologic exam
- Brain MRI showing chronic infarcts in areas that by our estimation can account for his chronic symptoms of imbalance and residual right sided weakness.
- B12/Folate level wnl
- PT recommending SNF
#Dyspnea on Exertion, possible secondary to deconditioning
- patient endorses associated h/o dyspnea on exertion associated with increasing weakness over the past month
- Possible h/o heart failure as he reports taking Lasix for LE swelling (which he stopped on his own, and recently restarted) and Spironolactone, though there is no documented diagnosis.
- Last Echo from 10/27/2024 shows EF 55-60%, normal ventricular size/function, mild pulm. htn
- Pro-BNP 121
- Carotid US showing Calcified plaques within BOTH proximal internal carotid arteries, <50% stenosis
- c/w Lasix and Spironolactone
- pending Echo
- STRONGLY encourage consistent follow up and medication compliance w/ Dough Scaler And Mixer, echo as outpatient to assess, though he does not display urgent signs or symptoms of acute heart failure exacerbation
#Persistent Afib
- Resume Eliquis
- He endorses self diagnosing CKD and then adjusting his own Eliquis dose based on this. He has been taking half dose Eliquis every other day.
(EGFR on our labs >60, patrol captain clearance 32; no CKD or indication for reducing Eliquis dosing)
- c/o Diltiazem
- Follows with Dr. Chou but has not been seen recently.
#Anxiety/Depression
- Takes mirtazapine, clonidine 0.75mg TID and 0.375mg QHS. Increase to 1mg as impossible to administer 3/4 of a tablet appropriately.
- Confirmed Clonidine rx with PDMP
- rec tapering down slowly under medical supervision as outpatient
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
- patient reports some residual R sided motor weakness, consistent with prior infarcts seen on imaging. Stable
#Idiopathic Polyneuropathy - stable
#Bipolar II Disorder
- takes Lamictal GRINDER MILL OPERATOR, Lamictal level pending
#KIRK, uncontrolled - patient reports diagnosis but does not use CPAP
#H/o Bilateral Traumatic Subdural Hematoma - s/p shital hole procedure
#Essential Hypertension - not on antihypertensives, will c/t monitor.
#Hepatic Steatosis - no LFT elevation. Will c/t trend
#BPH - c/w Flomax
DVT Ppx - holding Eliquis
Code Status - Full Code
Anticipated Discharge: Today
Subjective/Interval History
-
Date of Service: March 17, 2025
Seen and examined at bedside. No acute events reported overnight. AFVSS this morning
Patient was complaining of constipation, 800 mL urine retention though was given suppository and had bowel movement and spontaneously urinated
Denies any other new complaints today.
Objective Data
-
Labs:
Laboratory Results
03/17/25
05:26
WBC 6.0
Hgb 12.3 L
Hct 36.1 L
Plt Count 143
Sodium 136
Potassium 4.4
Chloride 106
Carbon Dioxide 24
BUN 29 H
Creatinine 1.0
Glucose 92
Calcium 9.4
Total Bilirubin 0.5
AST 24
ALT 32
Alkaline Phosphatase 111
Vital Signs:
Vital Signs
Temp Pulse Resp BP Pulse Ox
97.7 F 78 18 136/54 95
03/17/25 11:57 03/17/25 11:57 03/17/25 11:57 03/17/25 11:57 03/17/25 11:57
I&O
03/16/25 03/17/25 03/18/25
06:59 06:59 06:59
Intake Total 1830 / 1830 1680 / 1680
Output Total 900 / 900 1350 / 1350
Balance 930 / 930 330 / 330
Review of Systems
-
History Source: Patient
All other systems: Reviewed and negative
Physical Exam
-
General: Well Developed, Well Nourished, No Apparent Distress and Comfortable
HEENT: Normocephalic, Atraumatic, Moist Mucous Membranes and Anicteric
Respiratory: Clear to Auscultation and Non Labored Respirations; Negative Accessory Resp Muscle Use
Cardiac: Regular Rhythm and S1/S2; Negative Murmur, Rub or Gallop
GI: Soft, Nontender, Nondistended and Normal Bowel Sounds
Musculoskeletal: No Clubbing, No Cyanosis and No Edema
Skin: Warm, Dry and Normal Turgor; Negative Rash
Neuro: AO x 3 and Nonfocal/Grossly Intact
Psych: Calm
Data Reviewed
-
Labs: Labs Reviewed by me and Discussed with Patient
--- NOTE | 2025-03-17 13:32 | CM ---
CM following re: discharge planning.
Reviewed pt's chart, met with pt and pt's spouse at bedside. .
Discharge order noted. Both pt and his spouse are aware, expressed their agreement. IMM reviewed, placed on chart, pt has a copy.
Both [pt and his spouse are aware that [facility] and [facility] offered a bed and they requested [facility].
CM spoke to [facility] liaison Ratna and she confirmed that they do have a bed available and pt is accepted for admission today.
arranged transportation BLS with pick up worker time 5:30 p.m. [facility] complected, left with
[facility] nursing report: [phone]
Discharge instructions fax: [phone]
D/C plan: [facility]
[2025-03-17 15:02] VITALS: BP 126/64
--- NOTE | 2025-03-27 16:51 | W.DCSUMMARY ---
Documented by User: Teodoro Lane MD, Resident 03/27/25 17:19
Discharge Summary
Discharge Data
Date of Admission: 03/13/25
Date of Discharge: 03/17/25
Total time spent discharging patient (in min): >30m
-
Pending Results: No
Additional Pending Results:
None
Hospital Course
Discharging Physician : Dr. Migel Painter
Disposition : SNF
Primary care physician : Dr. Mukul Concepcion Jr.
Principal Discharge diagnosis : Acute Symptomatic Bradycardia, Acute Symptomatic Hypotension, JORGE, Subacute Dysarthria, Dyspnea on Exertion,
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
Traumatic Subdural Hematoma, Essential Hypertension, Hepatic Steatosis, BPH
Hospital Course :
84 year old man presenting with x5 days of Dysarthria
#Acute Symptomatic Bradycardia
#Acute Symptomatic Hypotension
- ASSISTANT WOMEN'S BASKETBALL COACH called for symptomatic bradycardia and hypotension, patient had no LOC or cp, ECG non ischemic, trops negative
- Cardiology consulted, Echo was wnl. Episode deemed more likely vasovagal
- BP meds held until his blood pressure normalized and his Diltiazem was decreased to 180mg
#JORGE, pre-renal (resolved)
- CMP during ASSISTANT WOMEN'S BASKETB[employer] COACH showing elevated profiler 1.1--1.6 and K from 4.8 --5.7.
- Given 500cc bolus and started on IVF, profiler returned to 1.1 and K normalized to 4.4.
- pre-renal cause from hypotension most likely 2/2 vasovagal episode
- Renal function stabilized, OK to resume Lasix/Losartan/Aldactone at discharge
#Subacute Dysarthria, unspecified etiology, likely neurodegenerative
- CT head showing no evidence of acute stroke. Evidence of old L external capsule lacunar infarct.
- Questionable dysarthria present intermittently on exams and between providers.
- Brain MRI showed no acute intracranial abnormality. No evidence of acute infarct. Chronic evidence of infarct in body of R lateral ventricle and inf. margin of L cerebellum.
- MG panel to rule out neuromuscular junction disorder -- instructed to f/u OP for results
- Lamictal Level was wnl
#Chronic LE Sensor-motor deficits
#Ambulatory Dysfunction
#Chronic Left External Capsule Lacunar Infarct
- Lumbar MRI from 02/07/25 shows normal appearance of lower spinal cord w/o evidence of compression
- Endorses weakness during ambulation, unsteadiness of gate. No cerebellar findings on neurologic exam
- Brain MRI showing chronic infarcts in areas that by our estimation can account for his chronic symptoms of imbalance and residual right sided weakness.
- B12/Folate level wnl
- Seen by PT who were recommending SNF -- pt ultimately discharged to SNF
#Dyspnea on Exertion, possible secondary to deconditioning
- patient endorses associated h/o dyspnea on exertion associated with increasing weakness over the past month
- Possible h/o heart failure as he reports taking Lasix for LE swelling (which he stopped on his own, and recently restarted) and Spironolactone, though there is no documented diagnosis
- Last Echo from 10/27/2024 shows EF 55-60%, normal ventricular size/function, mild pulm. htn
- Pro-BNP during stay was 121
- Carotid US showing Calcified plaques within BOTH proximal internal carotid arteries, <50% stenosis
- c/w Lasix and Spironolactone
- repeat Echo during admission was unchanged from 2023 with LVEF 60-65% and no regional wall motion abnormalities
- Strongly encouraged consistent follow up and medication compliance w/ International Marketing Specialist, though he did not display urgent signs or symptoms of acute heart failure exacerbation
#Persistent Afib
- Eliquis initially held until acute hemorrhagic stroke was ruled out, then continued
- He endorses self-diagnosing CKD and then adjusting his Eliquis dose based on this. He has been taking half dose Eliquis every other day.
(EGFR on our labs >60, profiler clearance 32; no formal diagnostic criteria met for CKD)
- He was kept on Diltiazem, which was reduced to 180mg as above following ASSISTANT WOMEN'S BASKETBALL COACH for symptomatic bradycardia
- Follows with Dr. Chou, but has not been seen recently. Encouraged OP follow up.
#Anxiety/Depression
- Takes mirtazapine, clonidine 0.75mg TID and 0.375mg QHS.
- Increase to 1mg TID as impossible to administer 3/4 of a tablet appropriately. QHS dosing increased to 0.5mg for the same reason.
- Confirmed Clonidine rx with PDMP
- strongly recommended tapering down slowly under medical supervision as outpatient
#Idiopathic Polyneuropathy - stable throughout admission
#Bipolar II Disorder - Lamictal level was drawn to rule out toxic causes of symptoms. Lamictal level was wnl.
#KIRK, uncontrolled - patient reports diagnosis but does not use CPAP. Did not require oxygen support during admission.
#H/o Bilateral Traumatic Subdural Hematoma - s/p shital hole procedure, seen on exam.
#Essential Hypertension - managed with HF medications and vital signs monitored closely.
#Hepatic Steatosis - no LFT elevation on serial labs.
#BPH - continued on Flomax
Important imaging findings :
Echocardiography Report:
CONCLUSIONS
Normal left ventricular size and systolic function without regional wall motion
abnormality. LVEF 60-65%.
Enlarged right ventricular size with normal systolic function.
No significant valvular disease.
Unchanged compared to prior echocardiogram in September 2024.
CT Head W/o Iv Contrast:
IMPRESSION:
Tiny old left external capsule lacunar infarct again suspected.
No acute intracranial abnormality.
US Cerebrovascular:
Calcified plaques within BOTH proximal internal carotid arteries. Any stenosis is less than 50% based upon velocity criteria.
Antegrade flow within both vertebral arteries.
MR Brain Without Contrast:
FINDINGS:
There is no abnormal signal intensity on diffusion imaging to suggest acute infarct.
Similar to prior examination, there is a small focus of likely chronic ischemic change in the periventricular white matter adjacent to the body of the right lateral ventricle. Small focus of encephalomalacia at the inferior margin of the left
cerebellum, consistent with old infarct. Otherwise, no significant abnormal signal intensity, evidence of mass, mass effect, midline shift, or extra-axial collection.
Atrophy: Moderate to advanced atrophy.
Ventricles: No hydrocephalus.
Sinuses: Prominent frontal sinus mucosal thickening and air-fluid again demonstrated, consistent with acute superimposed on chronic sinusitis. This is associated with mucosal thickening involving the ethmoid air cells, left greater than right.
Minimal maxillary sinus mucosal thickening and small right maxillary sinus retention cysts.
Mastoids: The mastoid air cells are clear.
Vascular structures: Normal flow-voids in the vascular structures at the skull base.
Procedure findings :
None.
Discharge Plan
-
Patient Disposition: Residential/SNF
Discharge Diagnosis/Procedures: Dysarthria
JORGE
Urine retention
Vasovagal episode
Condition: Fair
Diet: Low Cholesterol
Activity: With assistance
Driving Restrictions: As prior to admission
Bathing Restrictions: None
Blood Work: Repeat BMP and CBC with differential 5 to 7 days after discharge
Others Tests: Monitor bladder scans for signs of urine retention
Other Services: PT and OT
Activity Restrictions/Additional Instructions:
Schedule follow-up appointment with family doctor after discharge, should be seen in office within 1 to 2 weeks. Will follow-up as an outpatient to review myasthenia gravis panel, results pending at time of discharge
Patient should follow-up with multi site leasing consultant, information provided below if needed
Urology referral provided if needed in event of recurrent urine retention
Instructions: Dysarthria
Referrals:
Mukul Concepcion Jr., DO [Family Provider] -
Additional Discharge Medication Instructions: Reduced diltiazem ER from 240 mg daily to 180 mg daily
Changed nighttime clonazepam to 0.5 mg
Continue with melatonin 3 mg nightly
Continue saline nasal spray as needed
Resume Lasix, Aldactone, losartan on 03/18/2025 and recheck kidney function in 5 days
Prescriptions:
New
diltiazem HCl 180 mg Capsule,Extended Release 24hr
180 mg PO DAILY 30 Days Qty: 30 0RF
clonazepam 0.5 mg Tablet
0.5 mg PO HS 30 Days Qty: 30 0RF
melatonin 3 mg Tablet
3 mg PO HS 30 Days Qty: 30 0RF
Saline Nasal 0.65 % Aerosol,[place]
2 spray intranasal QIDPRN PRN (Reason: nasal congestion.) 30 Days Qty: 44 0RF
Continued
clonazepam [Klonopin] 0.5 mg Tablet
0.75 mg PO TID
omeprazole 40 mg Capsule,Delayed Release(Dr/Ec)
40 mg PO DAILY
tamsulosin 0.4 mg Capsule
0.8 mg PO DAILY
mirtazapine 30 mg Tablet
30 mg PO HS
losartan 100 mg Tablet
50 mg PO DAILY
lamotrigine [Lamictal] 100 mg Tablet
100 mg PO BID
Eliquis 5 mg Tablet
5 mg PO DIRECTED
Rx Instructions:
take 5mg bid every other day then the other days take he takes 5mg am and 2.5mg qpm, yesterday 03/12/25 patient took 5mg am and pm.
spironolactone 25 mg Tablet
25 mg PO DAILY
furosemide [Lasix] 20 mg Tablet
20 mg PO DAILY
lactulose 10 gram/15 mL Solution
10 g PO HS
Discontinued
diltiazem HCl 240 mg Capsule,Extended Release 24hr
240 mg PO DAILY
clonazepam 0.5 mg Tablet
0.375 mg PO HS
Discharge Orders:
Discharge Patient (As Directed); Ordered 03/17/25
Ordered By: Migel Painter
Discharge Date and Time
Discharge Date/Time: 03/17/25 18:45
Print Language: GEORGIAN

Documented by User: Migel Painter DO 03/28/25 10:43
Discharge Summary
Discharge Data
Date of Admission: 03/13/25
Date of Discharge: 03/28/25
Total time spent discharging patient (in min): 33
Discharge Plan
-
Patient Disposition: Residential/SNF
Discharge Diagnosis/Procedures: Dysarthria
JORGE
Urine retention
Vasovagal episode
Condition: Fair
Diet: Low Cholesterol
Activity: With assistance
Driving Restrictions: As prior to admission
Bathing Restrictions: None
Blood Work: Repeat BMP and CBC with differential 5 to 7 days after discharge
Others Tests: Monitor bladder scans for signs of urine retention
Other Services: PT and OT
Activity Restrictions/Additional Instructions:
Schedule follow-up appointment with family doctor after discharge, should be seen in office within 1 to 2 weeks. Will follow-up as an outpatient to review myasthenia gravis panel, results pending at time of discharge
Patient should follow-up with multi site leasing consultant, information provided below if needed
Urology referral provided if needed in event of recurrent urine retention
Instructions: Dysarthria
Referrals:
Mukul Concepcion Jr., DO [Family Provider] -
Additional Discharge Medication Instructions: Reduced diltiazem ER from 240 mg daily to 180 mg daily
Changed nighttime clonazepam to 0.5 mg
Continue with melatonin 3 mg nightly
Continue saline nasal spray as needed
Resume Lasix, Aldactone, losartan on 03/18/2025 and recheck kidney function in 5 days
Prescriptions:
New
diltiazem HCl 180 mg Capsule,Extended Release 24hr
180 mg PO DAILY 30 Days Qty: 30 0RF
clonazepam 0.5 mg Tablet
0.5 mg PO HS 30 Days Qty: 30 0RF
melatonin 3 mg Tablet
3 mg PO HS 30 Days Qty: 30 0RF
Saline Nasal 0.65 % Aerosol,[place]
2 spray intranasal QIDPRN PRN (Reason: nasal congestion.) 30 Days Qty: 44 0RF
Continued
clonazepam [Klonopin] 0.5 mg Tablet
0.75 mg PO TID
omeprazole 40 mg Capsule,Delayed Release(Dr/Ec)
40 mg PO DAILY
tamsulosin 0.4 mg Capsule
0.8 mg PO DAILY
mirtazapine 30 mg Tablet
30 mg PO HS
losartan 100 mg Tablet
50 mg PO DAILY
lamotrigine [Lamictal] 100 mg Tablet
100 mg PO BID
Eliquis 5 mg Tablet
5 mg PO DIRECTED
Rx Instructions:
take 5mg bid every other day then the other days take he takes 5mg am and 2.5mg qpm, yesterday 03/12/25 patient took 5mg am and pm.
spironolactone 25 mg Tablet
25 mg PO DAILY
furosemide [Lasix] 20 mg Tablet
20 mg PO DAILY
lactulose 10 gram/15 mL Solution
10 g PO HS
Discontinued
diltiazem HCl 240 mg Capsule,Extended Release 24hr
240 mg PO DAILY
clonazepam 0.5 mg Tablet
0.375 mg PO HS
Discharge Orders:
Discharge Patient (As Directed); Ordered 03/17/25
Ordered By: Migel Painter
Discharge Date and Time
Discharge Date/Time: 03/17/25 18:45
Print Language: GEORGIAN
== END 2025-03-17 18:45 | DRG 57 ==
LOC: 4 EAST ACU 13:38
PROVIDERS: Family Medicine; Registered Nurse; ADMITTING PHYSICIAN Internal Medicine; ATTENDING PHYSICIAN Internal Medicine; CONSULT PHYSICIAN Psychiatry & Neurology Neurology; EMERGENCY PHYSICIAN Student in an Organized Health Care Education/Training Program; FAMILY PHYSICIAN Family Medicine; OTHER PHYSICIAN Student in an Organized Health Care Education/Training Program
DX: I69.322 Dysarthria following cerebral infarction (principal); F31.81 Bipolar II disorder; I48.19 Other persistent atrial fibrillation; N17.9 Acute kidney failure, unspecified; G93.49 Other encephalopathy; I47.10 Supraventricular tachycardia, unspecified; I48.92 Unspecified atrial flutter; Z79.01 Long term (current) use of anticoagulants; I12.9 Hypertensive chronic kidney disease with stage 1 through stage 4 chronic kidney disease, or unspecified chronic kidney disease; F41.9 Anxiety disorder, unspecified; N40.0 Benign prostatic hyperplasia without lower urinary tract symptoms; N18.31 Chronic kidney disease, stage 3a; G60.9 Hereditary and idiopathic neuropathy, unspecified; G47.33 Obstructive sleep apnea (adult) (pediatric); I69.30 Unspecified sequelae of cerebral infarction; Z79.899 Other long term (current) drug therapy
CPT/HCPCS: 70450; 70551; 80048; 80053; 80061; 80175; 81003; 81015; 82550; 82607; 82746; 82962; 83036; 83880; 84443; 84484; 85025; 85027; 92523; 92610; 93005; 93306; 93880; 97116; 97163; 97167; 97530; 97535; 99285

== ENCOUNTER → 2025-04-12 04:00 | Outpatient (REF) | payer MEDICARE, SELFPAY | LOC: DHSLP 04:00 | PROVIDERS: ATTENDING PHYSICIAN Internal Medicine Critical Care Medicine; FAMILY PHYSICIAN Family Medicine | DX: G47.33 Obstructive sleep apnea (adult) (pediatric) (principal) | CPT/HCPCS: 95806 ==

== ENCOUNTER → 2025-07-03 09:59 | Outpatient (REF) | payer MEDICARE, SELFPAY | LOC: RAD 09:59 | PROVIDERS: ATTENDING PHYSICIAN Surgery Vascular Surgery; FAMILY PHYSICIAN Family Medicine | DX: I72.8 Aneurysm of other specified arteries (principal); R09.89 Other specified symptoms and signs involving the circulatory and respiratory systems; G54.0 Brachial plexus disorders | CPT/HCPCS: 93880; 93923; 93930 ==

== ENCOUNTER 2025-09-18 08:15 | Emergency (ER) | payer MEDICARE, SELFPAY ==
[2025-09-18 08:18] VITALS: BP 161/83
--- NOTE | 2025-09-18 08:30 | ED.GENMED ---
History of Present Illness
<TAY Ramirez - Last Filed: 09/18/25 16:07>
General
Chief Complaint: Chest Pain
Source: patient
Exam Limitations: none
Time Seen by Provider: 09/18/25 08:27
Nursing documentation reviewed up to this point in time: agreed with
History of Present Illness
History of Present Illness:
Patient is an 85-year-old male with past medical history of A-fib on Eliquis, hypertension subdural hematoma CVA SVT pulmonary hypertension chronic kidney disease presents to the ER for evaluation. Patient's multiple complaints however complains of
the sensation that he is retaining urine. He reports several weeks ago he had some urinary frequency urgency however had no fever. He recently saw his provider I had no acute findings for prostatitis.
He had a urine culture done which was negative however since yesterday afternoon feels that he is retaining urine. He has no urgency or frequency. Denies any fever chills nausea vomiting. Patient is overall concerned that he has an underlying
malignancy reports has had phantom spotting in the past. He was initially recommended have a CAT scan of his abdomen by his family doctor however did not get that done yet.
Past History
<TAY Ramirez - Last Filed: 09/18/25 16:07>
Past History
ED Past Medical History: Arrthythmia, CVA, GERD, HTN and Other (PSVT, bipolar, depression, pulmonary hypertension, sleep apnea, anxiety)
ED Past Surgical History: Appendectomy, Cholecystectomy and Orthopedic
Social History
Tobacco: Non-smoker
Alcohol: None
Drug: None
Personal:
Living: with family
Employment: Employed
Family History
Family History: Other (Noncontributory)
Phy Exam
<TAY Ramirez - Last Filed: 09/18/25 16:07>
General Physical Exam
General Presentation: no apparent distress
General age: appears stated age
General Skin: warm and dry
General Habitus: elderly
General Mental: alert
General Hydration: appears well hydrated
Cardiovascular Exam
Cardiovascular Exam: regular rate/rhythm, no murmur and normal peripheral pulses
Pulmonary Exam
Pulmonary Exam: lungs clear and no respiratory distress
Gastrointestinal Exam
Gastrointestinal Exam: non tender and soft
Neurological Exam
Neurological Exam: alert and oriented x3
Musculoskeletal Exam
Musculoskeletal Exam: full ROM
Skin Exam
Skin Exam: normal color and warm/dry
Psychiatric Exam
Psychiatric Exam: anxious
Scores
<TAY Ramirez - Last Filed: 09/18/25 16:07>
Heart Score for Chest Pain Patients
STEMI patient?: Not applicable
Course
<TAY Ramirez - Last Filed: 09/18/25 16:07>
Orders/Labs/Results
Orders:
Orders
09/18/25 08:17
Electrocardiogram (*1) Urgent
Reason for Study: Chest Pain
EKG- Treatment ONCE
09/18/25 08:53
Bladder Scan- Treatment ONCE
09/18/25 09:01
CT Abd/Pel (IV only)-DH only Urgent
Comment:
Reason For Exam: left sided abd pain
09/18/25 09:02
0.9% Sodium Chloride 1000 ml [Nss] 1,000 ml IV BOLUS
09/18/25 09:10
Complete Blood Count/With Diff Urgent
Comprehensive Metabolic Panel Urgent
Pro-BNP [NT-proBNP] Urgent
09/18/25 09:28
Urinalysis Reflex To Culture Urgent
Date Specimen was Collected: 09/18/25
Time Specimen was Collected: 09:27
Urine Microscopic Reflex Cult Urgent
Abnormal Lab Results
09/18/25 09/18/25
09:10 09:28
RBC 4.41 L 10^6/uL
(4.70-6.10)
MPV 11.7 H fL
(7.4-10.4)
Lymphocytes % 18.6 L %
(20.5-51.1)
BUN 26 H mg/dl
(9-20)
Urine Bacteria (Reflex) Few A
(Negative)
Urine Albumin (Reflex) 1+ A
(Neg - Trace)
09/18/25 09:10
09/18/25 09:10
Vital Signs
Initial and Last Documented VS:
Initial Vital Signs
Temp Pulse Resp BP Pulse Ox
97.8 F 95 18 161/83 97
09/18/25 08:18 09/18/25 08:18 09/18/25 08:18 09/18/25 08:18 09/18/25 08:18
Last Documented Vital Signs
Temp Pulse Resp BP Pulse Ox
97.8 F 68 16 109/71 97
09/18/25 08:18 09/18/25 11:07 09/18/25 11:07 09/18/25 12:00 09/18/25 12:00
Email Designer consulted with Physician
Email Designer consulted with physician?: Yes
Name of Physician Consulted: Esteban
<Lamonte Orellana, DO - Last Filed: 09/18/25 09:03>
Orders/Labs/Results
Orders:
Orders
09/18/25 08:17
Electrocardiogram (*1) Urgent
Reason for Study: Chest Pain
EKG- Treatment ONCE
09/18/25 08:53
Bladder Scan- Treatment ONCE
09/18/25 09:01
CT Abd/Pel (IV only)-DH only Urgent
Comment:
Reason For Exam: left sided abd pain
09/18/25 09:02
0.9% Sodium Chloride 1000 ml [Nss] 1,000 ml IV BOLUS
09/18/25 09:10
Complete Blood Count/With Diff Urgent
Comprehensive Metabolic Panel Urgent
Pro-BNP [NT-proBNP] Urgent
09/18/25 09:28
Urinalysis Reflex To Culture Urgent
Date Specimen was Collected: 09/18/25
Time Specimen was Collected: :27
Urine Microscopic Reflex Cult Urgent
Abnormal Lab Results
09/18/25 09/18/25
09:10 09:28
RBC 4.41 L 10^6/uL
(4.70-6.10)
MPV 11.7 H fL
(7.4-10.4)
Lymphocytes % 18.6 L %
(20.5-51.1)
BUN 26 H mg/dl
(9-20)
Urine Bacteria (Reflex) Few A
(Negative)
Urine Albumin (Reflex) 1+ A
(Neg - Trace)
09/18/25 09:10
09/18/25 09:10
Vital Signs
Initial and Last Documented VS:
Initial Vital Signs
Temp Pulse Resp BP Pulse Ox
97.8 F 95 18 161/83 97
09/18/25 08:18 09/18/25 08:18 09/18/25 08:18 09/18/25 08:18 09/18/25 08:18
Last Documented Vital Signs
Temp Pulse Resp BP Pulse Ox
97.8 F 68 16 109/71 97
09/18/25 08:18 09/18/25 11:07 09/18/25 11:07 09/18/25 12:00 09/18/25 12:00
<TAY Ramirez - Last Filed: 09/18/25 16:07>
MDM/Problems Addressed
Differential Diagnosis Includes:
Not limited to urinary tension constipation UTI
MDM/Problems Addressed:
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 He had some difficulty urinating today and is concerned about urinary retention. Pt as
documented above is very anxious however overall very well-appearing. He was not retaining urine. He denies any fevers. He has no complaints of chest pain or shortness of breath for me. Patient admits to being 'neurotic' and feels very anxious
about his health. he believes he may have an underlying cancer. Labs reviewed BUN minimally elevated however no other acute abnormalities in labs.
CAT scan of the abdomen shows moderate to large volume of stool secondary to constipation but no other acute inflammatory process in the abdomen. He has urinated well without any difficulty here and his urine is negative for infection
Patient was hydrated in the ER and discharged home. Pt was eval by ED physician.
<TAY Ramirez - Last Filed: 09/18/25 16:07>
*Pulse Oximetry
SaO2: 97
Oxygen Mode of Delivery: Room air
Patient hypoxic: no
*Critical Care Note
Total Time (30-74mins, 75-104mins- exclusive of procedures): Not Applicable
ED Attending Note
<TAY Ramirez - Last Filed: 09/18/25 16:07>
-
Portions of this chart may have been created with voice recognition software.� Occasional wrong word or��sound alike� substitutions may have occurred due to the inherent limitations of voice recognition software.
<Lamonte Orellana DO - Last Filed: 09/18/25 09:03>
ED Attending Note
Patient seen and examined by attending physician: Yes
I performed the substantive portion of visit, reviewed & personally made and approve the management plan that is documented in note by myself or OLIVER.: Yes
ED Attending Note:
I have seen and evaluated the patient with a [id number] encounter. I have spoken to the advance practicer provider and involved in the medical history, the physical exam, medical decision making.
Evaluation and management service: agree unless noted differently below.
Results interpretation: agree unless noted differently below.
Focused HPI: 85-year-old male presenting with multiple complaints. His biggest complaint is questionable urinary retention. However, patient is able to urinate. He also complains of abdominal pain and believes he could have an underlying
malignancy. He complains of 'phantom sweating'. Patient also concerned about possible prostatitis but denies any pain when he urinates. He states he has had all these things checked in the outpatient setting and everything was negative
Physical exam: Sitting in bed comfortably. No significant abdominal pain
Medical Decision Making: Given his multiple complaints, will obtain CT abdomen/pelvis. Will obtain urinalysis. Postvoid residual is 193 mL. He does not require urinary catheter.
Discharge Plan
Departure
Patient Disposition: Home (Routine Discharge)
Date of Disposition: 09/18/25
Time of Disposition: 12:11
Patient with high blood pressure during this ER visit?: Yes
Condition: Fair
Covid-19: Not Applicable
Discharge Problem:
Constipation
Instructions: Constipation in adults - ED (DC)
Prescriptions:
No Action
omeprazole 40 mg Capsule,Delayed Release(Dr/Ec)
40 mg PO DAILY
tamsulosin 0.4 mg Capsule
0.8 mg PO DAILY
mirtazapine 30 mg Tablet
30 mg PO HS
lamotrigine [Lamictal] 100 mg Tablet
100 mg PO BID
Eliquis 5 mg Tablet
5 mg PO DIRECTED
Patient Comments:
09/18/2025: pt takes 5mg every morning, and at night alternates 5mg and 2.5mg every other day.
spironolactone 25 mg Tablet
25 mg PO DAILY
lactulose 10 gram/15 mL Solution
30 g PO HS
pravastatin 10 mg tablet
10 mg PO DAILY
losartan 25 mg tablet
25 mg PO DAILY
diltiazem HCl [DILT-XR] 120 mg capsule,ext.rel 24h degradable
120 mg PO DAILY
docusate sodium [Colace] 100 mg Capsule
100 mg PO DAILY
clonazepam 0.5 mg tablet
0.5 mg PO QID
Referrals:
Mukul Concepcion Jr., DO [Family Provider, Internal Medicine]
Activity Restrictions/Additional Instructions:
CAT scan shows that you are constipated.
increase water intake increase diet high fiber fresh fruits and vegetables. You may add MiraLAX as needed.
follow up with your pcp in the next several days. Return if any woresning of symptoms.
Interventions
Interventions:
*Risk Screen - Suicide Last Done: 09/18/25 08:18
*General Assessment Last Done: 09/18/25 08:18
*Neglect/Abuse Screening Last Done: 09/18/25 08:18
*ED- Fall Risk Assessment Last Done: 09/18/25 08:18
*ED COVID-19 Vaccine History Last Done: 09/18/25 08:18
*ED Influenza Vaccine History Last Done: 09/18/25 08:18
*Nursing Disposition Last Done: 09/18/25 12:31
ED- Cardiac Assessment Last Done: 09/18/25 09:00
Discharge Date and Time
Discharge Date/Time: 09/18/25 12:32
Print Language: UKRAINIAN
[2025-09-18 09:05] VITALS: BP 117/49
[2025-09-18] MEDS: NSS 1000 IV (09:12)
[2025-09-18 09:24] LABS: Hematocrit 40.2 % (39.0-52.0); Hemoglobin 13.4 g/dL (13.0-18.0); Mean Corp Hgb Conc. 33.3 g/dL (33.0-37.0); Mean Corpuscular Volume 91.2 fL (80.0-94.0); Nucleated Red Blood Cells % 0 % (-); Platelet Count 158 10^3/uL (130-400); Red Cell Dist. Width 12.2 % (11.5-14.5)
[2025-09-18 09:37] LABS: Urine Character Clear (Clear)
[2025-09-18 09:47] LABS: ALT (SGPT) 20 U/L (0-50); AST (SGOT) 20 U/L (17-59); Albumin 4.1 g/dl (3.5-5.0); Alkaline Phosphatase 85 U/L (38-126); Blood Urea Nitrogen 26 mg/dl (9-20); Calcium 9.2 mg/dl (8.4-10.2); Carbon Dioxide 26 mmol/L (22-30); Chloride 105 mmol/L (98-107); Glucose 94 mg/dl (70-99); Potassium 4.3 mmol/L (3.5-5.1); Sodium 138 mmol/L (135-145); Total Protein 6.3 g/dl (6.3-8.2); eGFR > 60.00
[2025-09-18 09:58] LABS: Urine Squamous Cell 0-2 /LPF (Few)
[2025-09-18 09:59] LABS: Urine Red Blood Cell 0-2 /HPF (0-2); Urine White Cell 0-2 /HPF (0-5)
[2025-09-18 10:00] VITALS: BP 99/49
[2025-09-18 11:07] VITALS: BP 127/56
[2025-09-18 12:00] VITALS: BP 109/71
== END 2025-09-18 12:32 | disposition home or self-care (01) ==
LOC: EMR 08:15
PROVIDERS: Nurse Practitioner; EMERGENCY PHYSICIAN Student in an Organized Health Care Education/Training Program; FAMILY PHYSICIAN Family Medicine
DX: K59.00 Constipation, unspecified (principal); R07.9 Chest pain, unspecified; I12.9 Hypertensive chronic kidney disease with stage 1 through stage 4 chronic kidney disease, or unspecified chronic kidney disease; N18.9 Chronic kidney disease, unspecified; I48.91 Unspecified atrial fibrillation; Z79.01 Long term (current) use of anticoagulants; G47.30 Sleep apnea, unspecified; Z86.73 Personal history of transient ischemic attack (TIA), and cerebral infarction without residual deficits; Z90.49 Acquired absence of other specified parts of digestive tract
CPT/HCPCS: 96360; 96361; 99284; 74177; 80053; 81003; 81015; 83880; 85025; 93005; Q9967

== ENCOUNTER 2025-10-10 11:18 | Emergency (ER) | payer MEDICARE, SELFPAY ==
[2025-10-10] VITALS (7 sets, daily range): BP systolic 127–137; BP diastolic 55–77; BMI 29.2
[2025-10-10 11:56] LABS: Hematocrit 41.8 % (39.0-52.0); Hemoglobin 14.0 g/dL (13.0-18.0); Mean Corp Hgb Conc. 33.5 g/dL (33.0-37.0); Mean Corpuscular Volume 93.1 fL (80.0-94.0); Nucleated Red Blood Cells % 0 % (-); Platelet Count 156 10^3/uL (130-400); Red Cell Dist. Width 12.2 % (11.5-14.5)
[2025-10-10 12:17] LABS: ALT (SGPT) 20 U/L (0-50); AST (SGOT) 22 U/L (17-59); Albumin 4.3 g/dl (3.5-5.0); Alkaline Phosphatase 93 U/L (38-126); Blood Urea Nitrogen 27 mg/dl (9-20); Calcium 9.3 mg/dl (8.4-10.2); Carbon Dioxide 28 mmol/L (22-30); Chloride 103 mmol/L (98-107); Estimated Creatinine Clearance 68 ml/min; Glucose 90 mg/dl (70-99); Potassium 4.8 mmol/L (3.5-5.1); Sodium 136 mmol/L (135-145); Total Protein 6.6 g/dl (6.3-8.2); eGFR > 60.00
--- NOTE | 2025-10-10 12:26 | ED.GENMED ---
History of Present Illness
General
Chief Complaint: Weakness
Time Seen by Provider: 10/10/25 12:26
History of Present Illness
History of Present Illness:
FOCUSED PAST MEDICAL HISTORY
- A-fib on Eliquis, high blood pressure, said subdural hematoma in the past, CKD, iron deficiency anemia
REVIEW OF OLD RECORDS
- The patient was admitted with subacute dysarthria in February 2025 and had an MRI of the brain that showed no acute abnormality at that time, it was also documented the patient had chronic lower extremity sensorimotor deficits. He has a history of
persistent A-fib on Eliquis. He was also bradycardic at that time.
Note:
CHIEF COMPLAINT(S)
Increased right lower extremity weakness, peripheral neuropathy, and recent episode of chest discomfort.
HISTORY OF PRESENT ILLNESS
The patient is an 85-year-old male with a prior history of peripheral neuropathy, who presents with increased weakness in the right lower extremity noted two days ago. The weakness was new and more severe than previous experiences, with the patient
describing having difficulty walking and a possible slight foot drop on the right side. He also reported a headache a few days ago with elevated blood pressure, measuring 160/80 mmHg, after a recent adjustment in his Losartan dosage.
The patient recalled a single episode of right-sided chest discomfort following a difficult shopping excursion, describing it as severe (9/10 in intensity) and not typical of previous angina, lasting 3-4 minutes with a sensation that was
'interscapular.'
Additionally, the patient reported chronic constipation, for which he had been using Miralax, and increased urinary frequency. Concerns were expressed about kidney function, noting a previous creatinine-based estimated glomerular filtration rate
(eGFR) of about 70, and a cystatin C eGFR of 39, which he felt was more accurate due to his sarcopenic obesity.
The patient also mentioned a concern for progressive gynecomastia, past prostate issues, and was previously prescribed trimethoprim but held off on usage due to potential medication conflicts. He had a history of a subdural hematoma as well.
Concern was raised over a potential cerebral amyloid angiopathy and its relation to his symptoms. He expressed hesitancy to undergo CT imaging due to past prostate concerns and preferred MRI for its sensitivity but understood the challenges of
obtaining it through the emergency department. He expressed worry about his kidney function related to taking Eliquis, particularly concerning the dosage and potential side effects.
ADDITIONAL HISTORY OBTAINED FROM SOURCES OTHER THAN THE PATIENT
The patient provided all information. No additional sources were consulted.
EXTERNAL RECORDS REVIEWED
External records reviewed included past lumbar spine and brain MRIs, blood pressure records indicating recent controlled hypertension, and previous hospitalization records from [facility] and [facility]. Reports confirmed normal urine
analysis and cultures despite prior prostatitis concerns.
CHRONIC MEDICAL CONDITIONS SIGNIFICANTLY AFFECTING CARE
Peripheral neuropathy
History of subdural hematoma
Chronic hypertension
Sarcopenic obesity
SOCIAL DETERMINANTS AFFECTING HEALTH
The patient expressed hesitancy in seeking medical care, indicating a reluctance to come to the hospital due to discomfort and past unpleasant experiences.
PHYSICAL EXAM
General: Alert, no acute distress.
Skin: Warm, dry.
Head: Normocephalic, atraumatic.
Neck: Supple, trachea midline.
Eye Ears, nose, mouth and throat: Oral mucosa moist.
Cardiovascular: Normal peripheral perfusion, No edema.
Respiratory: Respirations are non-labored.
Gastrointestinal : Abdomen nondistended
Back: Normal range of motion, Normal alignment.
Musculoskeletal: Normal ROM, normal strength.
Neurological: Alert and oriented to person, place, time, and situation, No focal neurological deficits observed. However, reported right-sided weakness and foot drop.
Psychiatric: Cooperative, appropriate mood & affect.
PLAN
Administer intravenous fluids to address hydration concerns related to kidney function.
Consideration for a CT scan of the brain to evaluate subdural hematoma, as past records indicated concern for prior such incident.
Discussion with radiology regarding the possibility of obtaining an MRI, with patient preference leaning towards it for its sensitivity in detecting cerebral amyloid angiopathy.
DIFFERENTIAL DIAGNOSIS
The Differential Diagnosis includes, in no particular order and is not limited to:
1. Progression of peripheral neuropathy
2. Cerebrovascular accident (stroke)
3. Transient ischemic attack (TIA)
4. Angina or other cardiac etiology for chest discomfort
5. Cerebral amyloid angiopathy
6. Subdural hematoma
7. Prostate pathology contributing to urinary symptoms
8. Medication side effects, particularly due to diuretics or Eliquis
9. Adverse reaction to trimethoprim
10. Electrolyte imbalance due to sarcopenic obesity and chronic illnesses
RADIOLOGY
- MRI shows no evidence of cerebral amyloid angiography nor acute stroke
EKG
- Sinus 71, left axis deviation, bifascicular block with no significant change from 09/18/2025
LABS
- White count and hemoglobin are normal, chemistries unremarkable, BUN is slightly high 27 with normal creatinine similar to prior
UPDATE
-SUMMARY OF ENCOUNTER
The patient, an 85-year-old male with a history of peripheral neuropathy, visited the emergency department due to increased weakness in the right lower extremity that began two days ago, alongside recent chest discomfort and concerns about possible
cerebral amyloid angiopathy or stroke. An MRI helped to rule out both conditions. Previous records indicate past sensory and motor deficits. The patients chronic conditions and complicated medical history necessitated a thorough evaluation, yet no
acute life-threatening processes were found during this visit.
INDEPENDENT REVIEW OF LABS AND INTERPRETATION OF TESTS
My independent review of the MRI indicates a negative result for cerebral amyloid angiopathy and stroke, ruling out these concerns.
MEDICAL DECISION MAKING
- Chronic conditions affecting care include peripheral neuropathy, history of subdural hematoma, chronic hypertension, and sarcopenic obesity. Differential diagnoses considered included progression of peripheral neuropathy, cerebrovascular accident,
transient ischemic attack, and others related to his chronic conditions.
- Complexity of Data Reviewed:
Category 1: I reviewed external records indicating past sensory and motor deficits in the extremities. Category 2: Information was independently obtained from the patients records. Category 3: There was no discussion with external healthcare
providers specifically mentioned during this encounter.
- Risk: Prescription medication was not adjusted during this visit, indicating a conservative management approach given the negative MRI findings. Consideration of Admission/Observation: Escalation of care including admission/observation was
considered given the complexity and risk of the patients presenting complaint, exam findings, and/or their underlying comorbidities. However, ultimately I feel the patient is safe for outpatient management with close follow-up. Reasoning: Work-up
reassuring, does not reveal any acute life/organ-threatening processes, patients symptoms well controlled upon reevaluation, reexamination is reassuring, vitals are stable, patient agreeable with discharge, reliable for follow-up.
DIAGNOSIS
1. Weakness of right lower extremity, R53.1
2. Peripheral neuropathy, G62.9
3. Chest discomfort, R07.89
Past History
Past History
ED Past Medical History: Arrthythmia, CVA, GERD, HTN and Other (PSVT, bipolar, depression, pulmonary hypertension, sleep apnea, anxiety)
ED Past Surgical History: Appendectomy, Cholecystectomy and Orthopedic
Social History
Tobacco: Non-smoker
Alcohol: None
Drug: None
Personal:
Living: with family
Employment: Employed
Family History
Family History: Other (Noncontributory)
Phy Exam
Physical Exam
Physical Exam:
See HPI
Course
Orders/Labs/Results
Orders:
Orders
10/10/25 11:24
ECG [Electrocardiogram (*1)] Urgent
Reason for Study: Chest Pain
EKG- Treatment ONCE
10/10/25 11:47
BNP [NT-proBNP] Urgent
Complete Blood Count/With Diff Urgent
Comprehensive Metabolic Panel Urgent
10/10/25 13:01
MRI Brain [MR Brain Without Contrast] Urgent
Comment:
Reason For Exam: new R foot drop / weakness / on eliquis
Recent pill cam endoscopy?: No
10/10/25 13:09
Urinalysis Reflex To Culture Urgent
Date Specimen was Collected: 10/10/25
Time Specimen was Collected: 13:08
Abnormal Lab Results
10/10/25
11:47
RBC 4.49 L 10^6/uL
(4.70-6.10)
MCH 31.2 H pg
(27.0-31.0)
MPV 11.6 H fL
(7.4-10.4)
Absolute Lymphs (auto) 0.9 L 10^3/uL
(1.2-3.4)
Neutrophils % 76.1 H %
(42.2-75.2)
Lymphocytes % 12.6 L %
(20.5-51.1)
BUN 27 H mg/dl
(9-20)
10/10/25 11:47
10/10/25 11:47
Vital Signs
Initial and Last Documented VS:
Initial Vital Signs
Temp Pulse Resp BP Pulse Ox
36.4 C 80 16 137/65 95
10/10/25 11:20 10/10/25 11:20 10/10/25 11:20 10/10/25 11:20 10/10/25 11:20
Last Documented Vital Signs
Temp Pulse Resp BP Pulse Ox
36.4 C 68 15 129/61 98
10/10/25 11:20 10/10/25 13:00 10/10/25 13:00 10/10/25 13:00 10/10/25 16:00
*Pulse Oximetry
SaO2: 96
Oxygen Mode of Delivery: Room air
Patient hypoxic: no
*Critical Care Note
Total Time (30-74mins, 75-104mins- exclusive of procedures): Not Applicable
ED Attending Note
-
Portions of this chart may have been created with voice recognition software.� Occasional wrong word or��sound alike� substitutions may have occurred due to the inherent limitations of voice recognition software.
Discharge Plan
Departure
Patient Disposition: Home (Routine Discharge)
Date of Disposition: 10/10/25
Time of Disposition: 16:43
Patient with high blood pressure during this ER visit?: Yes
Discharge Problem:
Weakness
Instructions: Generalized Weakness (DC), Foot Drop, BLOOD PRESSURE
Prescriptions:
No Action
omeprazole 40 mg Capsule,Delayed Release(Dr/Ec)
40 mg PO DAILY
tamsulosin 0.4 mg Capsule
0.8 mg PO DAILY
mirtazapine 30 mg Tablet
30 mg PO HS
lamotrigine [Lamictal] 100 mg Tablet
100 mg PO BID
Eliquis 5 mg Tablet
5 mg PO DIRECTED
Patient Comments:
09/18/2025: pt takes 5mg every morning, and at night alternates 5mg and 2.5mg every other day.
spironolactone 25 mg Tablet
25 mg PO DAILY
lactulose 10 gram/15 mL Solution
30 g PO HS
pravastatin 10 mg tablet
10 mg PO DAILY
losartan 25 mg tablet
25 mg PO DAILY
diltiazem HCl [DILT-XR] 120 mg capsule,ext.rel 24h degradable
120 mg PO DAILY
docusate sodium [Colace] 100 mg Capsule
100 mg PO DAILY
clonazepam 0.5 mg tablet
0.5 mg PO QID
Referrals:
Mukul Concepcion Jr., DO [Family Provider, Internal Medicine]
Activity Restrictions/Additional Instructions:
I gave you a copy of your MRI report. Lab work is relatively unremarkable. Urinalysis is negative. Return if worse or other concerns.
Interventions
Interventions:
*Risk Screen - Suicide Last Done: 10/10/25 11:44
*General Assessment Last Done: 10/10/25 11:44
*Neglect/Abuse Screening Last Done: 10/10/25 11:44
*ED- Fall Risk Assessment Last Done: 10/10/25 11:44
*ED COVID-19 Vaccine History Last Done: 10/10/25 11:44
*ED Influenza Vaccine History Last Done: 10/10/25 11:44
ED- Cardiac Assessment Last Done: 10/10/25 13:48
ED- Neurological Assessment Last Done: 10/10/25 13:48
ED- Pulmonary Assessment Last Done: 10/10/25 13:48
Discharge Date and Time
Print Language: ROMANIAN
[2025-10-10 13:18] LABS: Urine Character Clear (Clear)
== END 2025-10-10 17:09 | disposition home or self-care (01) ==
LOC: EMR 11:18
PROVIDERS: EMERGENCY PHYSICIAN Emergency Medicine; FAMILY PHYSICIAN Family Medicine
DX: R53.1 Weakness (principal); I45.2 Bifascicular block; I48.19 Other persistent atrial fibrillation; I12.9 Hypertensive chronic kidney disease with stage 1 through stage 4 chronic kidney disease, or unspecified chronic kidney disease; N18.9 Chronic kidney disease, unspecified; I27.20 Pulmonary hypertension, unspecified; G47.30 Sleep apnea, unspecified; K59.09 Other constipation; F41.9 Anxiety disorder, unspecified; F31.9 Bipolar disorder, unspecified; K21.9 Gastro-esophageal reflux disease without esophagitis; G62.9 Polyneuropathy, unspecified; M21.371 Foot drop, right foot; Z79.01 Long term (current) use of anticoagulants; Z86.73 Personal history of transient ischemic attack (TIA), and cerebral infarction without residual deficits
CPT/HCPCS: 99284; 70551; 80053; 81003; 83880; 85025; 93005

== ENCOUNTER 2025-11-02 16:09 | Emergency (ER) | payer MEDICARE, SELFPAY ==
[2025-11-02 16:28] VITALS: BP 116/93
[2025-11-02 17:51] LABS: Hematocrit 39.9 % (39.0-52.0); Hemoglobin 13.4 g/dL (13.0-18.0); Mean Corp Hgb Conc. 33.6 g/dL (33.0-37.0); Mean Corpuscular Volume 91.5 fL (80.0-94.0); Nucleated Red Blood Cells % 0 % (-); Platelet Count 162 10^3/uL (130-400); Red Cell Dist. Width 12.1 % (11.5-14.5)
[2025-11-02 17:56] LABS: Troponin I < 0.012 ng/ml
[2025-11-02 17:57] LABS: ALT (SGPT) 26 U/L (0-50); AST (SGOT) 22 U/L (17-59); Albumin 4.2 g/dl (3.5-5.0); Alkaline Phosphatase 97 U/L (38-126); Blood Urea Nitrogen 29 mg/dl (9-20); Calcium 9.3 mg/dl (8.4-10.2); Carbon Dioxide 30 mmol/L (22-30); Chloride 102 mmol/L (98-107); Glucose 90 mg/dl (70-99); Potassium 5.3 mmol/L (3.5-5.1); Sodium 134 mmol/L (135-145); Total Protein 6.7 g/dl (6.3-8.2); eGFR > 60.00
[2025-11-02 18:55] VITALS: BP 143/64
[2025-11-02 19:00] VITALS: BP 142/63
[2025-11-02 19:24] LABS: Urine Character Clear (Clear)
--- NOTE | 2025-11-02 19:34 | EDRN ---
Pt requesting bladder scan, initial PVR 436mL.
Pt ambulatory to bathroom without assistance, voided approx 250mL, PVR now 210mL.
Dr Edmond updated
[2025-11-02 20:00] VITALS: BP 157/67
--- NOTE | 2025-11-02 20:42 | ED.GENMED ---
History of Present Illness
General
Chief Complaint: Breathing Problem
Source: patient
Exam Limitations: none
Time Seen by Provider: 11/02/25 19:14
Nursing documentation reviewed up to this point in time: agreed with
History of Present Illness
History of Present Illness:
Patient presents to ED secondary to 2-day history of shortness of breath with exertion, along with generalized weakness and intermittent confusion. 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
polypharmacy, including longstanding history of chronic Klonopin use for anxiety. In addition, patient states that he was diagnosed pulmonary hypertension in apnea, but has not been able to tolerate CPAP at nighttime. Unfortunately, he has not had
follow-up with angle shear set up operator. Patient also with BPH, reports incomplete voiding sensation recently, which is typical for him. Patient does take tamsulosin, but once again, has not followed up with urologist, as had recommended in the past. Denies
fever or chills. Denies recent illness. Denies coughing. Denies vomiting or diarrhea. Denies loss of appetite. Denies loss of weight. Patient mainly is concerned and wanted to make sure that his renal function has not worsened, secondary to
polypharmacy, explaining his symptoms.
Past History
Past History
ED Past Medical History: Arrthythmia, CVA, GERD, HTN and Other (PSVT, bipolar, depression, pulmonary hypertension, sleep apnea, anxiety)
ED Past Surgical History: Appendectomy, Cholecystectomy and Orthopedic
Social History
Tobacco: Non-smoker
Alcohol: None
Drug: None
Personal:
Living: with family
Employment: Employed
Family History
Family History: Other (Noncontributory)
Review of Systems
Review of Systems
Allergies reviewed?: Yes
All Other Systems: ROS reviewed and negative except as documented in HPI and ROS
Constitutional: Reports no symptoms
EENT: Reports no symptoms
Respiratory: Reports trouble breathing; Denies cough
Cardiac: Reports no symptoms; Denies chest pain
ABD/GI: Reports no symptoms; Denies abdominal pain, nausea, vomiting or diarrhea
Musculoskeletal: Reports no symptoms
Skin: Reports no symptoms
Neurological: Reports weakness; Denies dizzy or headache
Phy Exam
Physical Exam
Physical Exam:
Physical Exam
General: no apparent distress, not acutely ill. afebrile
Head: nc/at. eomi
Neck: supple. no meningeal signs. no jvd
Heart: s1/s2 regular rate and rhythm
Lungs: no acute respiratory distress. clear bilaterally
Abdomen: normal bowel sounds. not tender.
Neuro: alert and oriented x 3. no focal neurological deficits
Skin: no rash
Psychiatric: well kept. interactive and cooperative
Extremities: no edema. no calf tenderness.
Scores
Heart Failure Risk
Heart Failure Risk Score: Not Applicable
Course
Orders/Labs/Results
Orders:
Orders
11/02/25 16:33
Electrocardiogram (*1) Urgent
Reason for Study: Chest Pain
EKG- Treatment ONCE
11/02/25 16:58
Comprehensive Metabolic Panel Urgent
Pro-BNP [NT-proBNP] Urgent
Troponin I Urgent
11/02/25 16:59
Complete Blood Count/With Diff Urgent
11/02/25 19:18
Urinalysis Reflex To Culture Urgent
Date Specimen was Collected: 11/02/25
Time Specimen was Collected: 19:15
Abnormal Lab Results
11/02/25 11/02/25
16:58 16:59
RBC 4.36 L 10^6/uL
(4.70-6.10)
MPV 11.7 H fL
(7.4-10.4)
Absolute Lymphs (auto) 1.1 L 10^3/uL
(1.2-3.4)
Lymphocytes % 17.3 L %
(20.5-51.1)
Sodium 134 L mmol/L
(135-145)
Potassium 5.3 H mmol/L
(3.5-5.1)
BUN 29 H mg/dl
(9-20)
11/02/25 16:59
11/02/25 16:58
Vital Signs
Initial and Last Documented VS:
Initial Vital Signs
Temp Pulse Resp BP Pulse Ox
97.7 F 77 20 116/93 97
11/02/25 16:28 11/02/25 16:28 11/02/25 16:28 11/02/25 16:28 11/02/25 16:28
Last Documented Vital Signs
Temp Pulse Resp BP Pulse Ox
97.7 F 82 14 155/58 97
11/02/25 16:28 11/02/25 21:15 11/02/25 21:15 11/02/25 21:00 11/02/25 21:16
MDM/Problems Addressed
MDM/Problems Addressed:
Patient with an unremarkable workup in ED, including blood work and urinalysis. Otherwise, patient remains afebrile, hemodynamically stable, and neurologically intact during observation. Patient was able to ambulate in ED independently, with
steady gait, without desaturation nor any episode of acute respiratory distress during intubation. As such, after discussion, patient feels comfortable going home at this time. Patient does understand that he will need close follow-up with his PCP
as well as angle shear set up operator and urologist, for his ongoing medical condition.
*Pulse Oximetry
SaO2: 98
Oxygen Mode of Delivery: Room air
Patient hypoxic: no
*EKG
Interpreted by ED Provider?: Yes
EKG Intrepretation Date: 11/02/25
Heart Rate: 65
Rate: normal
Rhythm: sinus
Interval: normal interval
QRS Pattern: right bundle branch block
*Critical Care Note
Total Time (30-74mins, 75-104mins- exclusive of procedures): Not Applicable
ED Attending Note
-
Portions of this chart may have been created with voice recognition software.� Occasional wrong word or��sound alike� substitutions may have occurred due to the inherent limitations of voice recognition software.
Discharge Plan
Departure
Patient Disposition: Home (Routine Discharge)
Date of Disposition: 11/02/25
Time of Disposition: 21:22
Patient with high blood pressure during this ER visit?: Yes
Condition: Fair
Discharge Problem:
Weakness, BPH (benign prostatic hyperplasia)
Instructions: Benign prostatic hyperplasia (enlarged prostate), Weakness - ED (DC)
Prescriptions:
No Action
omeprazole 40 mg Capsule,Delayed Release(Dr/Ec)
40 mg PO DAILY
tamsulosin 0.4 mg Capsule
0.8 mg PO DAILY
mirtazapine 30 mg Tablet
30 mg PO HS
lamotrigine [Lamictal] 100 mg Tablet
100 mg PO BID
Eliquis 5 mg Tablet
5 mg PO DIRECTED
Patient Comments:
09/18/2025: pt takes 5mg every morning, and at night alternates 5mg and 2.5mg every other day.
spironolactone 25 mg Tablet
25 mg PO DAILY
lactulose 10 gram/15 mL Solution
30 g PO HS
pravastatin 10 mg tablet
10 mg PO DAILY
losartan 25 mg tablet
25 mg PO DAILY
diltiazem HCl [DILT-XR] 120 mg capsule,ext.rel 24h degradable
120 mg PO DAILY
docusate sodium [Colace] 100 mg Capsule
100 mg PO DAILY
clonazepam 0.5 mg tablet
0.5 mg PO QID
Referrals:
Mukul Concepcion Jr., DO [Family Provider, Internal Medicine]
Leno Chapman MD [Active, Urology]
Activity Restrictions/Additional Instructions:
As discussed, please follow-up with your primary care physician for continual evaluation and treatment, along with consultation with angle shear set up operator/urologist, for your ongoing medical conditions.
Interventions
Interventions:
*Risk Screen - Suicide Last Done: 11/02/25 16:28
*General Assessment Last Done: 11/02/25 16:28
*Neglect/Abuse Screening Last Done: 11/02/25 16:28
*ED COVID-19 Vaccine History Last Done: 11/02/25 19:35
*ED Influenza Vaccine History Last Done: 11/02/25 19:35
[facility] Fall Risk Assessment Tool Last Done: 11/02/25 19:35
*Nursing Disposition Last Done: 11/02/25 22:15
ED- Cardiac Assessment Last Done: 11/02/25 21:16
ED- Pulmonary Assessment Last Done: 11/02/25 21:16
Discharge Date and Time
Discharge Date/Time: 11/02/25 22:16
Print Language: MOLDOVAN
[2025-11-02 21:00] VITALS: BP 155/58
== END 2025-11-02 22:16 | disposition home or self-care (01) ==
LOC: EMR 16:09
PROVIDERS: Emergency Medicine; EMERGENCY PHYSICIAN Emergency Medicine; FAMILY PHYSICIAN Family Medicine
DX: R53.1 Weakness (principal); N40.0 Benign prostatic hyperplasia without lower urinary tract symptoms; K21.9 Gastro-esophageal reflux disease without esophagitis; I10 Essential (primary) hypertension; I47.10 Supraventricular tachycardia, unspecified; G47.30 Sleep apnea, unspecified; F31.9 Bipolar disorder, unspecified; I27.20 Pulmonary hypertension, unspecified; Z86.73 Personal history of transient ischemic attack (TIA), and cerebral infarction without residual deficits; Z90.49 Acquired absence of other specified parts of digestive tract
CPT/HCPCS: 99283; 80053; 81003; 83880; 84484; 85025; 93005

== ENCOUNTER 2025-11-10 12:13 | Emergency (ER) | payer MEDICARE, SELFPAY ==
[2025-11-10 12:24] VITALS: BP 133/60
[2025-11-10 12:50] VITALS: BMI 31.0
[2025-11-10 13:10] LABS: Urine Character Clear (Clear)
[2025-11-10 13:20] LABS: Urine Red Blood Cell 0-2 /HPF (0-2); Urine Squamous Cell 0-2 /LPF (Few); Urine White Cell 0-2 /HPF (0-5)
--- NOTE | 2025-11-10 14:07 | ED.GENMED ---
History of Present Illness
General
Chief Complaint: Male Genito-Urinary Symptoms
Time Seen by Provider: 11/10/25 12:53
History of Present Illness
History of Present Illness:
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 No dysuria, urinary urgency or hesitancy. States a
history of urinary retention and high postvoid residuals for which she was post follow-up with urology but never did.
Past History
Past History
ED Past Medical History: Arrthythmia, CVA, GERD, HTN and Other (PSVT, bipolar, depression, pulmonary hypertension, sleep apnea, anxiety)
ED Past Surgical History: Appendectomy, Cholecystectomy and Orthopedic
Social History
Tobacco: Non-smoker
Alcohol: None
Drug: None
Personal:
Living: with family
Employment: Employed
Family History
Family History: Other (Noncontributory)
Phy Exam
General Physical Exam
General Presentation: well appearing and no apparent distress
General Skin: warm and dry
General Habitus: normal
General Mental: alert
General Hydration: appears well hydrated
ENT Exam
ENT Exam: EOMI, pharynx normal, neck supple and normocephalic
Eye Exam
Eye Exam: PERRL, cornea clear and conjunctiva normal
Cardiovascular Exam
Cardiovascular Exam: regular rate/rhythm, no edema, no murmur and normal peripheral pulses
Pulmonary Exam
Pulmonary Exam: lungs clear, no respiratory distress, no rales, no crackles, no rhonchi, no stridor, no wheezing and no cough
Gastrointestinal Exam
Gastrointestinal Exam: normal bowel sounds, non tender, soft, no organomegaly, no pulsatile mass and non distended
Neurological Exam
Neurological Exam: alert, oriented x3, no motor deficits and speech normal
Musculoskeletal Exam
Musculoskeletal Exam: full ROM and no edema
Skin Exam
Skin Exam: normal color, warm/dry, no rash and no petechia
Psychiatric Exam
Psychiatric Exam: normal mood/affect
Course
Orders/Labs/Results
Orders:
Orders
11/10/25 12:48
Urinalysis Reflex To Culture Urgent
Date Specimen was Collected: 11/10/25
Time Specimen was Collected: 12:47
Urine Microscopic Reflex Cult Urgent
Abnormal Lab Results
11/10/25
12:48
Urine Albumin (Reflex) 1+ A
(Neg - Trace)
Vital Signs
Initial and Last Documented VS:
Initial Vital Signs
Temp Pulse Resp BP Pulse Ox
36.6 C 78 16 133/60 98
11/10/25 12:24 11/10/25 12:24 11/10/25 12:24 11/10/25 12:24 11/10/25 12:24
Last Documented Vital Signs
Temp Pulse Resp BP Pulse Ox
36.6 C 78 16 133/60 98
11/10/25 12:24 11/10/25 12:24 11/10/25 12:24 11/10/25 12:24 11/10/25 12:24
MDM/Problems Addressed
Differential Diagnosis Includes:
UA negative for any obvious infection. Did not reflex culture. Patient was able to void without issue postvoid residual was 100. Patient reports that this is actually less than before for him. He would like to follow-up outpatient with urology.
All questions answered. Return precautions discussed.
*Pulse Oximetry
SaO2: 98
Oxygen Mode of Delivery: Room air
Patient hypoxic: no
*Critical Care Note
Total Time (30-74mins, 75-104mins- exclusive of procedures): Not Applicable
ED Attending Note
-
Portions of this chart may have been created with voice recognition software.� Occasional wrong word or��sound alike� substitutions may have occurred due to the inherent limitations of voice recognition software.
Discharge Plan
Departure
Patient Disposition: Home (Routine Discharge)
Date of Disposition: 11/10/25
Time of Disposition: 14:02
Patient with high blood pressure during this ER visit?: No
Discharge Problem:
Enlarged prostate with urinary retention
Instructions: Urinary Retention (DC)
Prescriptions:
No Action
omeprazole 40 mg Capsule,Delayed Release(Dr/Ec)
40 mg PO DAILY
tamsulosin 0.4 mg Capsule
0.8 mg PO DAILY
mirtazapine 30 mg Tablet
30 mg PO HS
lamotrigine [Lamictal] 100 mg Tablet
100 mg PO BID
Eliquis 5 mg Tablet
5 mg PO DIRECTED
Patient Comments:
09/18/2025: pt takes 5mg every morning, and at night alternates 5mg and 2.5mg every other day.
spironolactone 25 mg Tablet
25 mg PO DAILY
lactulose 10 gram/15 mL Solution
30 g PO HS
pravastatin 10 mg tablet
10 mg PO DAILY
losartan 25 mg tablet
25 mg PO DAILY
diltiazem HCl [DILT-XR] 120 mg capsule,ext.rel 24h degradable
120 mg PO DAILY
docusate sodium [Colace] 100 mg Capsule
100 mg PO DAILY
clonazepam 0.5 mg tablet
0.5 mg PO QID
Referrals:
Mukul Concepcion Jr., DO [Family Provider, Internal Medicine]
Activity Restrictions/Additional Instructions:
No infection seen on your urinalysis. Postvoid residual was 100 mL. Please follow-up with urology as an outpatient.
Interventions
Interventions:
*Risk Screen - Suicide Last Done: 11/10/25 12:24
*General Assessment Last Done: 11/10/25 12:50
*Neglect/Abuse Screening Last Done: 11/10/25 12:24
*ED COVID-19 Vaccine History Last Done: 11/10/25 12:50
*ED Influenza Vaccine History Last Done: 11/10/25 12:50
[facility] Fall Risk Assessment Tool Last Done: 11/10/25 12:58
*Nursing Disposition Last Done: 11/10/25 14:11
ED-Male Genitourinary Assessment Last Done: 11/10/25 12:52
Discharge Date and Time
Discharge Date/Time: 11/10/25 14:11
Print Language: BOLIVIAN
== END 2025-11-10 14:11 | disposition home or self-care (01) ==
LOC: EMR 12:13
PROVIDERS: EMERGENCY PHYSICIAN Emergency Medicine; FAMILY PHYSICIAN Family Medicine
DX: N40.1 Benign prostatic hyperplasia with lower urinary tract symptoms (principal); R33.8 Other retention of urine; I10 Essential (primary) hypertension; I27.20 Pulmonary hypertension, unspecified; Z86.73 Personal history of transient ischemic attack (TIA), and cerebral infarction without residual deficits; Z90.49 Acquired absence of other specified parts of digestive tract
CPT/HCPCS: 99283; 81003; 81015

== ENCOUNTER 2025-11-27 12:51 | Emergency (ER) | payer MEDICARE, SELFPAY ==
[2025-11-27 13:14] VITALS: BP 118/67
[2025-11-27 13:51] LABS: Hematocrit 38.6 % (39.0-52.0); Hemoglobin 13.1 g/dL (13.0-18.0); Mean Corp Hgb Conc. 33.9 g/dL (33.0-37.0); Mean Corpuscular Volume 91.3 fL (80.0-94.0); Nucleated Red Blood Cells % 0 % (-); Platelet Count 159 10^3/uL (130-400); Red Cell Dist. Width 11.9 % (11.5-14.5)
[2025-11-27 13:57] LABS: D-Dimer 0.34 ug/mlFEU (0.00-0.50)
[2025-11-27 14:07] LABS: ALT (SGPT) 20 U/L (0-50); AST (SGOT) 21 U/L (17-59); Albumin 4.1 g/dl (3.5-5.0); Alkaline Phosphatase 97 U/L (38-126); Blood Urea Nitrogen 29 mg/dl (9-20); Calcium 9.0 mg/dl (8.4-10.2); Carbon Dioxide 27 mmol/L (22-30); Chloride 104 mmol/L (98-107); Glucose 92 mg/dl (70-99); Magnesium 2.0 mg/dl (1.6-2.3); Potassium 5.1 mmol/L (3.5-5.1); Sodium 136 mmol/L (135-145); Total Protein 6.5 g/dl (6.3-8.2); eGFR > 60.00
[2025-11-27 14:18] LABS: Troponin I 0.014 ng/ml
[2025-11-27 19:23] VITALS: BP 143/53
--- NOTE | 2025-11-27 20:39 | ED.GENMED ---
History of Present Illness
General
Chief Complaint: Chest Pain
Time Seen by Provider: 11/27/25 19:39
History of Present Illness
History of Present Illness:
85-year-old male with history of CVA, A-fib on Eliquis, hypertension presenting to the emergency department with concern of dyspnea on exertion. Patient notes symptoms for the past 3 weeks, however about 2 weeks ago did have some right sided chest
pain. Noted some chest pain earlier today as well, nonexertional. Yesterday, noticed some lower extremity edema. 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 Has been compliant with his Eliquis, however notes at
nighttime he has been splitting the 5 mg tablet 2.5 mg. Does admit to anxiety and worrisome behavior regarding his medical health. Denies any active chest pain or difficulty breathing. Denies cough or fever. Denies additional medical complaint
Past History
Past History
ED Past Medical History: Arrthythmia, CVA, GERD, HTN and Other (PSVT, bipolar, depression, pulmonary hypertension, sleep apnea, anxiety)
ED Past Surgical History: Appendectomy, Cholecystectomy and Orthopedic
Social History
Tobacco: Non-smoker
Alcohol: None
Drug: None
Personal:
Living: with family
Employment: Employed
Family History
Family History: Other (Noncontributory)
Phy Exam
Physical Exam
Physical Exam:
General: Well-appearing, no clinical signs of dehydration, nontoxic and in no acute distress
HEENT: protecting airway
Neck: appears supple
CV: Normal heart rate, regular rhythm, no evidence of cyanosis
Resp: No accessory muscle use, no increased work of breathing, lungs clear to auscultation bilaterally
Abd: Soft and non-distended, no tenderness to palpation
Extremities: No deformities, symmetric swelling to the lower extremities, +2 pitting edema
Neuro: alert, no focal neurologic deficit
: deferred
Rectal: deferred
Psych: Normal affect
Skin: Intact
Scores
Heart Score for Chest Pain Patients
STEMI patient?: No
History: Slightly or Non-Suspicious
ECG: Normal
Age: >/= 65 years
Risk Factors: 1 or 2 Risk Factors
Troponin: </= Normal Limit
Heart Score for Chest Pain Patients: 3
Heart Score Risk: 2.5% MACE over next 6 weeks
Course
Orders/Labs/Results
Orders:
Orders
11/27/25 12:51
EKG [Electrocardiogram (*1)] Urgent
Reason for Study: Chest Pain
11/27/25 12:52
EKG- Treatment ONCE
11/27/25 13:31
Complete Blood Count/With Diff Urgent
Comprehensive Metabolic Panel Urgent
D-Dimer Urgent
Magnesium Urgent
NT-proBNP Urgent
Troponin I Urgent
11/27/25 20:10
Electrocardiogram (*1) Urgent
Reason for Study: Shortness of Breath
EKG- Treatment ONCE
CR Chest - 2 Views Urgent
Comment:
Reason For Exam: WILSON
11/27/25 20:19
Troponin I Urgent
Abnormal Lab Results
11/27/25
13:31
RBC 4.23 L 10^6/uL
(4.70-6.10)
Hct 38.6 L %
(39.0-52.0)
MPV 11.9 H fL
(7.4-10.4)
Absolute Lymphs (auto) 0.7 L 10^3/uL
(1.2-3.4)
Neutrophils % 75.9 H %
(42.2-75.2)
Lymphocytes % 9.9 L %
(20.5-51.1)
BUN 29 H mg/dl
(9-20)
11/27/25 13:31
11/27/25 13:31
Vital Signs
Initial and Last Documented VS:
Initial Vital Signs
Temp Pulse Resp BP Pulse Ox
97.9 F 80 20 118/67 96
11/27/25 13:14 11/27/25 13:14 11/27/25 13:14 11/27/25 13:14 11/27/25 13:14
Last Documented Vital Signs
Temp Pulse Resp BP Pulse Ox
97.9 F 73 19 143/53 95
11/27/25 13:14 11/27/25 19:45 11/27/25 19:45 11/27/25 19:23 11/27/25 20:42
MDM/Problems Addressed
MDM/Problems Addressed:
85-year-old male presenting to the emergency department for dyspnea on exertion for the past 3 weeks. Vital signs on arrival are normal.
On exam patient is resting comfortably, no acute distress or discomfort. No present respiratory distress. Patient does have some mild lower extremity edema, however no additional signs of volume overload on exam with lungs clear to auscultation.
EKG obtained on arrival, right bundle branch block without significant change from prior. Without present concern for ACS. Patient afebrile, nontoxic without concern for pneumonia or infectious etiology. Patient had laboratory analysis obtained
prior to my assessment which show normal troponin and normal D-dimer. Patient admits to feeling very worrisome about a pulmonary embolism. At this time due to known anticoagulation status with normal dimer, no hypoxia, no tachycardia, without
concern for PE or any clinical indication for CT of the chest. Mild congestive heart failure is a consideration given progressive dyspnea on exertion with lower extremity edema. So we will obtain chest x-ray imaging. However BNP within normal
limits. Lower suspicion. In addition, recent echo in February 2025 which showed an EF of 60 to 65% with no significant valvular. Disease possible dependent edema as etiology of the lower extremity swelling. Will repeat troponin and EKG. Labs
otherwise unremarkable and patient remains to be dynamically stable.
21:30 - Repeat EKG is unchanged and repeat troponin within normal limits. Chest x-ray without significant sign of pulmonary edema. There is mention of a new possible opacity in the left lower lung versus atelectasis. No infectious symptoms or
concern for pneumonia at this time. Patient has an upcoming appointment with cardiology for repeat echo. At this time feel stable for discharge. Return precautions discussed and patient verbalized understanding.
*Pulse Oximetry
SaO2: 95
Oxygen Mode of Delivery: Room air
Patient hypoxic: no
*EKG
Interpreted by ED Provider?: Yes
EKG Intrepretation Date: 11/27/25
EKG Intrepretation Time: 20:43
Interpretation: normal
Comparison EKG: no changes (10/10/25)
Heart Rate: 77
Rate: normal
QRS Pattern: right bundle branch block and other (Left anterior fascicular block)
Ischemia: no ischemia
*Critical Care Note
Total Time (30-74mins, 75-104mins- exclusive of procedures): Not Applicable
ED Attending Note
-
Portions of this chart may have been created with voice recognition software.� Occasional wrong word or��sound alike� substitutions may have occurred due to the inherent limitations of voice recognition software.
Discharge Plan
Departure
Patient Disposition: Home (Routine Discharge)
Date of Disposition: 11/27/25
Time of Disposition: 21:36
Patient with high blood pressure during this ER visit?: No
Condition: Good
Discharge Problem:
Dyspnea on exertion, Dependent edema
Instructions: Swelling, Shortness of breath
Prescriptions:
No Action
omeprazole 40 mg Capsule,Delayed Release(Dr/Ec)
40 mg PO DAILY
tamsulosin 0.4 mg Capsule
0.8 mg PO DAILY
mirtazapine 30 mg Tablet
30 mg PO HS
lamotrigine [Lamictal] 100 mg Tablet
100 mg PO BID
Eliquis 5 mg Tablet
5 mg PO DIRECTED
Patient Comments:
09/18/2025: pt takes 5mg every morning, and at night alternates 5mg and 2.5mg every other day.
spironolactone 25 mg Tablet
25 mg PO DAILY
lactulose 10 gram/15 mL Solution
30 g PO HS
pravastatin 10 mg tablet
10 mg PO DAILY
losartan 25 mg tablet
25 mg PO DAILY
diltiazem HCl [DILT-XR] 120 mg capsule,ext.rel 24h degradable
120 mg PO DAILY
docusate sodium [Colace] 100 mg Capsule
100 mg PO DAILY
clonazepam 0.5 mg tablet
0.5 mg PO QID
Referrals:
UNKNOWN - PT DOES,NOT KNOW [Family Provider]
Activity Restrictions/Additional Instructions:
You were seen in the emergency department for shortness of breath and lower extremity swelling
You were found to have reassuring vital signs, laboratory analysis, chest x-ray imaging. We recommend follow-up with your director of field coordination as scheduled.
Please follow-up closely with your primary care physician.
Return to the emergency department for any worsening of your symptoms, or any development of chest pain, difficulty breathing, abdominal pain with persistent vomiting and inability to tolerate food or liquid by mouth (concern for dehydration),
weakness, headache or confusion, fever greater than 100.4, or any additional symptoms that are concerning to you.
Thank you for choosing [facility].
Interventions
Interventions:
*General Assessment Last Done: 11/27/25 20:13
*Neglect/Abuse Screening Last Done: 11/27/25 13:14
*ED COVID-19 Vaccine History Last Done: 11/27/25 20:13
*ED Influenza Vaccine History Last Done: 11/27/25 20:13
[facility] Risk Assessment Tool Last Done: 11/27/25 20:15
*Risk Screen - Suicide (C-SSRS) Last Done: 11/27/25 13:14
*Nursing Disposition Last Done: 11/27/25 22:00
ED- Cardiac Assessment Last Done: 11/27/25 20:00
Discharge Date and Time
Discharge Date/Time: 11/27/25 22:01
Print Language: POLISH
[2025-11-27 20:55] LABS: Troponin I 0.014 ng/ml
== END 2025-11-27 22:01 | disposition home or self-care (01) ==
LOC: EMR 12:51
PROVIDERS: Emergency Medicine; EMERGENCY PHYSICIAN Student in an Organized Health Care Education/Training Program
DX: R06.02 Shortness of breath (principal); R60.0 Localized edema; I45.2 Bifascicular block; I48.91 Unspecified atrial fibrillation; I10 Essential (primary) hypertension; I27.20 Pulmonary hypertension, unspecified; G47.30 Sleep apnea, unspecified; K21.9 Gastro-esophageal reflux disease without esophagitis; F31.9 Bipolar disorder, unspecified; F41.9 Anxiety disorder, unspecified; Z79.01 Long term (current) use of anticoagulants; Z86.73 Personal history of transient ischemic attack (TIA), and cerebral infarction without residual deficits
CPT/HCPCS: 99284; 71046; 80053; 83735; 83880; 84484; 85025; 85379; 93005